=== PATIENT | female | born 1970 | race Caucasian/White ===

== ENCOUNTER 2017-08-28 07:15 | Inpatient (IN) | payer OTHER ==
[2017-08-28] MEDS ORDERED: SODIUM CHLORIDE 0.9% 1,000 ML IV STA (07:33)
[2017-08-28] MEDS ORDERED: KETOROLAC 30 MG/ML 1 ML VIAL IVP STA (07:33)
--- NOTE | 2017-08-28 07:37 | ED ---
Abdominal Pain HPI - General Chief Complaint: Abdominal Pain Stated Complaint: flank pain Time Seen by Provider: 08/28/17 07:21 Source: patient, RN notes reviewed Mode of arrival: ambulatory Limitations: no limitations - History of Present Illness Initial Comments: This is a 47-year-old female who states she had the onset of right-sided flank pain 2 days ago which is been fairly persistent sharp in nature currently as 9/ 10 severity some nausea no vomiting. Complaints of urinary pressure no hematuria or dysuria however. No diarrhea no constipation. Pain is worse with movements with deep breathing. When she sneezes it gets worse. No prior history kidney stones no prior history of abdominal surgeries. No fevers or chills but she does state she has less sweats. MD Complaint: abdominal pain, flank pain - Related Data Home Medications Medication Instructions Recorded Confirmed Lisinopril [Zestril] 10 mg PO DAILY 08/28/17 08/28/17 Allergies Allergy/AdvReac Type Severity Reaction Status Date / Time No Known Allergies Allergy Verified 08/28/17 08:04 Review of Systems ROS Statement: Those systems with pertinent positive or pertinent negative responses have been documented in the HPI. ROS Other: All systems not noted in ROS Statement are negative. Past Medical History Past Medical History: Hypertension Additional Past Medical History / Comment(s): pinched nerves in spine, pt started today on antibioitics by Dr Teixeira. History of Any Multi-Drug Resistant Organisms: None Reported Past Surgical History: Back Surgery, Tonsillectomy, Tubal Ligation Past Anesthesia/Blood Transfusion Reactions: Postoperative Nausea & Vomiting ( PONV) Past Psychological History: No Psychological Hx Reported Smoking Status: Never smoker Past Alcohol Use History: None Reported Past Drug Use History: None Reported - Past Family History Mother Family Medical History: No Reported History General Exam - General Exam Comments Initial Comments: This is a well-developed well-nourished awake alert oriented 3 female Limitations: no limitations General appearance: alert, anxious Head exam: Present: atraumatic, normocephalic, normal inspection Eye exam: Present: normal appearance, PERRL, EOMI. Absent: scleral icterus, conjunctival injection, periorbital swelling ENT exam: Present: mucous membranes dry Neck exam: Present: normal inspection. Absent: tenderness, meningismus, lymphadenopathy Respiratory exam: Present: normal lung sounds bilaterally. Absent: respiratory distress, wheezes, rales, rhonchi, stridor Cardiovascular Exam: Present: normal rhythm, tachycardia. Absent: systolic murmur, diastolic murmur, rubs, gallop, clicks GI/Abdominal exam: Present: soft, tenderness (Some right lower quadrant tenderness palpation no overt guarding or rebound and equivocal psoas sign), normal bowel sounds. Absent: distended, guarding, rebound, rigid Rectal exam: Present: deferred Extremities exam: Present: normal inspection, full ROM, normal capillary refill. Absent: tenderness, pedal edema, joint swelling, calf tenderness Back exam: Present: normal inspection, other (Some erythema and discolorationof the right flank she states she's been using a heating pad.). Absent: CVA tenderness (R), CVA tenderness (L) Neurological exam: Present: alert, oriented X3, CN II-XII intact Psychiatric exam: Present: normal affect, normal mood Skin exam: Present: warm, dry, intact, normal color. Absent: rash Course Vital Signs 08/28/17 07:17 Temperature 98.6 F Pulse Rate 117 H Respiratory 17 Rate Blood Pressure 145/75 O2 Sat by Pulse 100 Oximetry Medical Decision Making - Medical Decision Making I did discuss findings with the patient and Dr. Pena who is covering for Dr. Pearson. Patient will be admitted for presumed laparoscopic appendectomy - Lab Data Result diagrams: 08/28/17 07:47 08/28/17 07:47 Lab Results 08/28/17 08/28/17 08/28/17 Range/Units 07:47 07:47 07:47 WBC 17.6 H (3.8-10.6) k/uL RBC 5.00 (3.80-5.40) m/uL Hgb 14.4 (11.4-16.0) gm/dL Hct 46.3 H (34.0-46.0) % MCV 92.5 (80.0-100.0) fL MCH 28.8 (25.0-35.0) pg MCHC 31.1 (31.0-37.0) g/dL RDW 15.6 H (11.5-15.5) % Plt Count 372 (150-450) k/uL Neutrophils % 83 % Lymphocytes % 9 % Monocytes % 5 % Eosinophils % 1 % Basophils % 0 % Neutrophils # 14.6 H (1.3-7.7) k/uL Lymphocytes # 1.5 (1.0-4.8) k/uL Monocytes # 0.8 (0-1.0) k/uL Eosinophils # 0.2 (0-0.7) k/uL Basophils # 0.0 (0-0.2) k/uL Sodium 137 (137-145) mmol/L Potassium 5.0 (3.5-5.1) mmol/L Chloride 103 (98-107) mmol/L Carbon Dioxide 20 L (22-30) mmol/L Anion Gap 14 mmol/L BUN 10 (7-17) mg/dL Creatinine 0.72 (0.52-1.04) mg/dL Est GFR (MDRD) Af Amer >60 (>60 ml/min/1.73 sqM) Est GFR (MDRD) Non-Af >60 (>60 ml/min/1.73 sqM) Glucose 116 H (74-99) mg/dL Calcium 10.0 (8.4-10.2) mg/dL Total Bilirubin 0.7 (0.2-1.3) mg/dL AST 27 (14-36) U/L ALT 39 (9-52) U/L Alkaline Phosphatase 57 (38-126) U/L Total Protein 7.5 (6.3-8.2) g/dL Albumin 4.3 (3.5-5.0) g/dL Amylase 74 (30-110) U/L Lipase 69 (23-300) U/L Urine Color Yellow Urine Appearance Cloudy H (Clear) Urine pH 5.5 (5.0-8.0) Ur Specific [place] 1.017 (1.001-1.035) Urine Protein Trace H (Negative) Urine Glucose (UA) Negative (Negative) Urine Ketones 1+ H (Negative) Urine Blood Trace H (Negative) Urine Nitrite Negative (Negative) Urine Bilirubin Negative (Negative) Urine Urobilinogen <2.0 (<2.0) mg/dL Ur Leukocyte Esterase Large H (Negative) Urine RBC 3 (0-5) /hpf Urine WBC 45 H (0-5) /hpf Ur Squamous Epith Cells 6 H (0-4) /hpf Urine Bacteria Rare H (None) /hpf Urine Mucus Occasional H (None) /hpf - Radiology Data Radiology results: report reviewed (I did review the imaging and report acute appendicitis as per the radiologist and per review the CAT scan.), image reviewed Disposition Clinical Impression: Acute appendicitis Disposition: ADMITTED IP TO THIS HOSP Condition: Stable Referrals: Beti Teixeira MD [Primary Care Provider] - 1-2 days
[2017-08-28 08:01] LABS: Basophils % (A) 0 %; Eosinophils # (A) 0.2 k/uL (0-0.7); Eosinophils % (A) 1 %; HCT 46.3 % (34.0-46.0); HGB 14.4 gm/dL (11.4-16.0); Lymphocytes # (A) 1.5 k/uL (1.0-4.8); Lymphocytes % (A) 9 %; MCH 28.8 pg (25.0-35.0); MCHC 31.1 g/dL (31.0-37.0); MCV 92.5 fL (80.0-100.0); Monocytes # (A) 0.8 k/uL (0-1.0); Monocytes % (A) 5 %; Neutrophils # (A) 14.6 k/uL (1.3-7.7); Neutrophils % (A) 83 %; Platelet Count 372 k/uL (150-450); RDW 15.6 % (11.5-15.5); WBC 17.6 k/uL (3.8-10.6)
[2017-08-28 08:05] LABS: Appearance,Urine Cloudy (Clear); Bacteria,Urine Rare /hpf; Bilirubin,Urine Negative (Negative); Blood,Urine Trace (Negative); Color,Urine Yellow; Glucose,Urine (UA) Negative (Negative); Ketones,Urine 1+ (Negative); Leukocyte Esterase,Urine Large (Negative); Mucus,Urine Occasional /hpf; Nitrite,Urine Negative (Negative); PH, Urine 5.5 (5.0-8.0); Protein,Urine Trace (Negative); RBC,Urine 3 /hpf (0-5); Specific Gravity,Urine 1.017 (1.001-1.035); Squamous Epithelial Cell,Urine 6 /hpf (0-4); Urobilinogen,Urine <2.0 mg/dL (<2.0); WBC,Urine 45 /hpf (0-5)
[2017-08-28 08:11] LABS: ALT 39 U/L (9-52); AST 27 U/L (14-36); Albumin 4.3 g/dL (3.5-5.0); Alkaline Phosphatase 57 U/L (38-126); Amylase 74 U/L (30-110); Anion Gap 14 mmol/L; Blood Urea Nitrogen 10 mg/dL (7-17); Carbon Dioxide 20 mmol/L (22-30); Chloride 103 mmol/L (98-107); Glucose 116 mg/dL (74-99); Lipase 69 U/L (23-300); Sodium 137 mmol/L (137-145); Total Bilirubin 0.7 mg/dL (0.2-1.3); Total Protein 7.5 g/dL (6.3-8.2)
--- NOTE | 2017-08-28 08:26 | CT ---
EXAMINATION TYPE: CT abdomen pelvis wo con DATE OF EXAM: 08/28/2017 HISTORY: Rt flank pain CT DLP: 1037 mGycm. Automated Exposure Control for Dose Reduction was Utilized. TECHNIQUE: CT scan of the abdomen and pelvis is performed without oral or IV contrast. COMPARISON: MRI lumbar spine September 05, 2009. FINDINGS: Within the limitations of a non-contrast study, the following observations are made. LUNG BASES: There is patchy left basilar linear scarring and/or atelectasis in the left lung base tyrel trally. LIVER/GB: Liver is isodense to slightly hypodense relative to spleen consistent with mild diffuse fat ty infiltration. PANCREAS: No significant abnormality is seen. SPLEEN: No significant abnormality is seen. ADRENALS: No significant abnormality is seen. KIDNEYS: In right kidney lower pole level there is 5.0 cm low dense lesion, Hounsfield units average less than 10, simple cyst is felt present. Finding correlates with lumbar spine MRI 2009 though simpl e cyst is noted increased in size from the study. There are no renal calculi or hydronephrosis seen b ilaterally. No intraluminal calculi in poorly distended bladder are identified. BOWEL: From base of cecum appendix is abnormal. There is dilatation and wall thickening most prominen t mid aspect up to 16 mm on axial image 113. Central hyperdensity may reflect appendicolith. There is moderate ill-defined surrounding fluid and fat stranding. Findings are consistent with acute appendi citis. No well-formed fluid collection or abscess is seen. No free air is noted. There is no suspicious small or large bowel dilatation. There is small hiatal hernia is seen. There a re few diverticula in the sigmoid colon without CT evidence for acute diverticulitis. GENITAL ORGANS: Anteverted uterus is present. Subserosal punctate calcification axial image 134 noted right aspect. Trace free fluid in pelvic cul-de-sac is felt present seen best near coronal image 74. There is suspected oval partially fatty lesion right ovary correlate for small dermoid measuring 1.2 x 0.7 cm axial image 120. Lymph nodes: No greater than 1cm abdominal or pelvic lymph nodes are appreciated. OSSEOUS STRUCTURES: There is postsurgical change lower lumbar spine with posterior interpedicular clau s and screws transfixing L4-L5 level and metallic disc spacer L4-L5 level noted. There is moderate mu ltilevel spurring in visualized thoracic spine. OTHER: There is a small to moderate-sized fat-containing umbilical hernia. IMPRESSION: 1. No renal stones or hydronephrosis is seen bilaterally. 2. CT findings are consistent with acute appendicitis as detailed above. 3. I suspect small right ovarian dermoid, consider nonemergent follow-up imaging with ultrasound and/ or MRI to confirm. Critical results communicated to ordering ER physician via telephone at time of dictation. A Document Only message has been documented for Adolfo Steward MD in the [employer] Critical [facility] sult system on 08/28/2017 8:22 AM, Message ID [id number].
[2017-08-28] MEDS ORDERED: NALOXONE 0.4 MG/ML 1 ML VIAL IV PRN ×2 (08:30→12:39)
[2017-08-28] MEDS ORDERED: SODIUM CHLORIDE 0.9% 1,000 ML IV SCH (08:30)
[2017-08-28] MEDS ORDERED: PIPERACILLIN-TAZOBACTAM 3.375 GM in DEXTROSE/WATER 1 50ML.BAG IVPB STA (08:34)
--- NOTE | 2017-08-28 09:13 | P.GSHP ---
History of Present Illness H&P Date: 08/28/17 47-year-old female presents to the emergency department complaining of right lower quadrant pain. She states that the pain started approximately 2 days ago and has worsened. She states that the first day of the pain she did have some nausea but denied any emesis. She denies any change in appetite. She denies any change in bowel function. She states that she has been in and out of the cold, because she works with horses in a stable and is unsure if she has been having fevers. She has no additional complaints at this time. She denies being on any anticoagulation medication. She denies any previous abdominal surgery. - Review of Systems All systems: negative Past Medical History Past Medical History: Hypertension Additional Past Medical History / Comment(s): pinched nerves in spine, pt started today on antibioitics by Dr Teixeira. History of Any Multi-Drug Resistant Organisms: None Reported Past Surgical History: Back Surgery, Tonsillectomy, Tubal Ligation Additional Past Surgical History / Comment(s): 2016 lumbar fusion Past Anesthesia/Blood Transfusion Reactions: Postoperative Nausea & Vomiting ( PONV) Past Psychological History: No Psychological Hx Reported Additional Psychological History / Comment(s): Pt resides with family. She is independent. Smoking Status: Never smoker Past Alcohol Use History: None Reported Past Drug Use History: None Reported - Past Family History Mother Family Medical History: No Reported History Additional Family Medical History / Comment(s): Mother is healthy and is in her 70's Father Family Medical History: No Reported History Additional Family Medical History / Comment(s): Father is healthy. He is in his 70s Medications and Allergies Home Medications Medication Instructions Recorded Confirmed Type Lisinopril [Zestril] 10 mg PO DAILY 08/28/17 08/28/17 History Norethindrone-E.estradiol-Iron 1 tab PO DAILY 08/28/17 08/28/17 History [Microgestin Fe 1.5-30 Tab] Allergies Allergy/AdvReac Type Severity Reaction Status Date / Time No Known Allergies Allergy Verified 08/28/17 08:04 Surgical - Exam Osteopathic Statement: *. No significant issues noted on an osteopathic structural exam other than those noted in the History and Physical/Consult. Vital Signs Temp Pulse Resp BP Pulse Ox 98.6 F 117 H 17 145/75 100 08/28/17 07:17 08/28/17 07:17 08/28/17 07:17 08/28/17 07:17 08/28/17 07:17 - General well developed, well nourished, no distress - Eyes PERRL, normal ocular movement - ENT normal pinna, normal nares, normal mucosa - Neck no masses, no bruits, trachea midline - Respiratory normal respiratory effort - Abdomen Soft, tender in right lower quadrant, nondistended, no rebound, no guarding - Psychiatric oriented to time, oriented to person, oriented to place Results - Labs 08/28/17 07:47 08/28/17 07:47 Abnormal Lab Results - Last 24 Hours (Table) 08/28/17 08/28/17 08/28/17 Range/Units 07:47 07:47 07:47 WBC 17.6 H (3.8-10.6) k/uL Hct 46.3 H (34.0-46.0) % RDW 15.6 H (11.5-15.5) % Neutrophils # 14.6 H (1.3-7.7) k/uL Carbon Dioxide 20 L (22-30) mmol/L Glucose 116 H (74-99) mg/dL Urine Appearance Cloudy H (Clear) Urine Protein Trace H (Negative) Urine Ketones 1+ H (Negative) Urine Blood Trace H (Negative) Ur Leukocyte Esterase Large H (Negative) Urine WBC 45 H (0-5) /hpf Ur Squamous Epith Cells 6 H (0-4) /hpf Urine Bacteria Rare H (None) /hpf Urine Mucus Occasional H (None) /hpf Diabetes panel 08/28/17 Range/Units 07:47 Sodium 137 (137-145) mmol/L Potassium 5.0 (3.5-5.1) mmol/L Chloride 103 (98-107) mmol/L Carbon Dioxide 20 L (22-30) mmol/L BUN 10 (7-17) mg/dL Creatinine 0.72 (0.52-1.04) mg/dL Glucose 116 H (74-99) mg/dL Calcium 10.0 (8.4-10.2) mg/dL AST 27 (14-36) U/L ALT 39 (9-52) U/L Alkaline Phosphatase 57 (38-126) U/L Total Protein 7.5 (6.3-8.2) g/dL Albumin 4.3 (3.5-5.0) g/dL Calcium panel 08/28/17 Range/Units 07:47 Calcium 10.0 (8.4-10.2) mg/dL Albumin 4.3 (3.5-5.0) g/dL Pituitary panel 08/28/17 Range/Units 07:47 Sodium 137 (137-145) mmol/L Potassium 5.0 (3.5-5.1) mmol/L Chloride 103 (98-107) mmol/L Carbon Dioxide 20 L (22-30) mmol/L BUN 10 (7-17) mg/dL Creatinine 0.72 (0.52-1.04) mg/dL Glucose 116 H (74-99) mg/dL Calcium 10.0 (8.4-10.2) mg/dL Adrenal panel 08/28/17 Range/Units 07:47 Sodium 137 (137-145) mmol/L Potassium 5.0 (3.5-5.1) mmol/L Chloride 103 (98-107) mmol/L Carbon Dioxide 20 L (22-30) mmol/L BUN 10 (7-17) mg/dL Creatinine 0.72 (0.52-1.04) mg/dL Glucose 116 H (74-99) mg/dL Calcium 10.0 (8.4-10.2) mg/dL Total Bilirubin 0.7 (0.2-1.3) mg/dL AST 27 (14-36) U/L ALT 39 (9-52) U/L Alkaline Phosphatase 57 (38-126) U/L Total Protein 7.5 (6.3-8.2) g/dL Albumin 4.3 (3.5-5.0) g/dL - Imaging CT scan - abdomen: report reviewed, image reviewed CT scan - pelvis: report reviewed, image reviewed (Reviewed CT of the abdomen and pelvis. There is thickening of the appendix. There is also noted ovarian dermoid.) Assessment and Plan (1) Acute appendicitis Current Visit: Yes Status: Acute Priority: High Code(s): K35.80 - UNSPECIFIED ACUTE APPENDICITIS SNOMED Code(s): 46232177 Plan: 47-year-old female with acute appendicitis - Keep nothing by mouth - Begin antibiotics - Will board for operating room for laparoscopic appendectomy - DVT prophylaxis - Further recommendations after operation
[2017-08-28] MEDS: IV FLUID CONTINUATION 1,000 ML IV ONE ×2 (09:49→14:24)
[2017-08-28] MEDS ORDERED: ONDANSETRON 4 MG/2 ML VIAL IVP ONE (10:08)
[2017-08-28] MEDS ORDERED: DEXAMETHASONE SOD PHOSPHATE 10 MG/ML 1 ML VIAL IV ONE (10:09)
[2017-08-28] MEDS ORDERED: HEPARIN SODIUM,PORCINE 5,000 UNIT/ML 1 ML VIAL SQ ONE (10:09)
[2017-08-28] MEDS ORDERED: GLYCOPYRROLATE 0.2 MG/ML 2 ML VIAL ONE (10:16)
[2017-08-28] MEDS ORDERED: NEOSTIGMINE 1 MG/ML 10 ML VIAL ONE (10:16)
[2017-08-28] MEDS ORDERED: PHENYLEPHRINE-0.9% NACL SYG 1 MG/10 ML SYRINGE ONE (10:16)
[2017-08-28] MEDS ORDERED: fentaNYL (PF) 50 MCG/ML 2 ML AMP ONE (10:16)
[2017-08-28] MEDS ORDERED: SODIUM CHLORIDE 0.9% 1,000 ML IV ONE (10:16)
[2017-08-28] MEDS ORDERED: BUPIVACAINE-EPI 0.5%-1:200,000 10 ML VIAL SQ ONE (10:16)
[2017-08-28] MEDS ORDERED: ROCURONIUM BROMIDE 10 MG/ML 10 ML VIAL IV ONE (10:16)
[2017-08-28] MEDS ORDERED: LIDOCAINE 1% INJ 10MG/ML (20 ML MDV) ONE (10:16)
[2017-08-28] MEDS ORDERED: SUCCINYLCHOLINE CHLORIDE 100 MG/5 ML SYR IV ONE (10:16)
[2017-08-28] MEDS ORDERED: PROPOFOL 10 MG/ML 20 ML VIAL IV ONE (10:16)
[2017-08-28] MEDS ORDERED: MIDAZOLAM 2 MG/2 ML VIAL ONE (10:16)
[2017-08-28] MEDS ORDERED: LACTATED RINGERS 1,000 ML IV ONE ×2 (11:04→12:39)
--- NOTE | 2017-08-28 11:36 | P.OP ---
Date of Procedure: 08/28/17 Preoperative Diagnosis: Acute appendicitis Postoperative Diagnosis: Acute appendicitis, purulent Procedure(s) Performed: Laparoscopic appendectomy Anesthesia: SHERMAN Surgeon: Torito Pena Estimated Blood Loss (ml): 5 Pathology: other (Appendix) Condition: stable Disposition: floor Indications for Procedure: 47-year-old female presents secondary to right lower quadrant abdominal pain. She has had this pain for 2 days. On workup in the emergency department acute appendicitis was found on a CT of her abdomen and pelvis. Secondary to this, a laparoscopic appendectomy was offered to the patient. The patient was explained the risks, benefits and alternatives to the procedure. She did provide consent prior to attending the operating suite. Operative Findings: Purulent appendicitis with exudative changes Description of Procedure: The patient was brought into the operating suite and placed in supine position on the operating table. Sedation was provided by anesthesia and the patient underwent endotracheal intubation. The patient was then prepped and draped in regular sterile fashion and a Fontanez catheter was placed. A supraumbilical incision was made and the abdomen was entered under direct visualization using a Visiport. Pneumoperitoneum was then achieved. 2 additional 5 mm ports were then placed. One was placed at the suprapubic area and the second was placed in the left lower quadrant. The patient was then positioned appropriately. The appendix was noted to be posterior. The cecum was followed to the appendix base. At this point it was noted that the appendix was purulent with exudative changes. There was also a purulent pocket of turbid fluid around the appendix. The appendix was followed until the tip was located. The entire appendix was clearly visualized. A window was created at the base of the appendix between the mesoappendix and the appendix using a [place] dissector. A Endo JULIÁN 60 mm purple load was then fired across the base of the appendix. A LigaSure device was then used to dissect the appendix from the mesoappendix all while maintaining hemostasis. All once the appendix was completely free from its surrounding attachments it was placed in an Endo Catch bag and removed from the abdomen from the super umbilical incision. Irrigation was then used in the right lower quadrant. Hemostasis was noted to be maintained. At this point, the super umbilical incision site fascia was closed using a Ivan-Sunil device and an 0 Vicryl suture in [id number] fashion. Pneumoperitoneum was then released and all additional ports removed. All skin incisions were then closed using 4-0 Vicryl subcuticular suture. Sterile dressing was applied. The patient was awakened in the operating suite and taken to postanesthesia care unit in stable condition.
[2017-08-28] MEDS ORDERED: ONDANSETRON 4 MG/2 ML VIAL IVP PRN (12:39)
[2017-08-28] MEDS ORDERED: HYDROcodone/APAP 5-325MG 1 EACH TAB PO PRN (12:39)
[2017-08-28] MEDS ORDERED: HYDROmorphone 0.5 MG/0.5 ML SYRINGE IVP PRN (12:39)
[2017-08-28 14:46] VITALS: RESP 16
[2017-08-28] MEDS: HEPARIN SODIUM,PORCINE 5,000 UNIT/ML 1 ML VIAL SQ SCH ×2 (17:47→23:23)
[2017-08-28] MEDS: PIPERACILLIN-TAZOBACTAM 3.375 GM in DEXTROSE/WATER 1 50ML.BAG IVPB SCH ×2 (17:47→23:21)
[2017-08-28] MEDS ORDERED: HYDROmorphone 1 MG/ML 1 ML SYRINGE IVP PRN (22:25)
[2017-08-28] MEDS ORDERED: HYDROmorphone 2 MG/ML 1 ML SYRINGE IVP PRN (22:55)
[2017-08-29 07:27] VITALS: BP 127/84; PULSE 78; TEMP 97.9
[2017-08-29 08:16] LABS: Basophils % (A) 0 %; Eosinophils % (A) 0 %; HCT 38.6 % (34.0-46.0); HGB 12.3 gm/dL (11.4-16.0); Lymphocytes # (A) 1.3 k/uL (1.0-4.8); Lymphocytes % (A) 9 %; MCH 29.2 pg (25.0-35.0); MCHC 31.9 g/dL (31.0-37.0); MCV 91.5 fL (80.0-100.0); Mean Platelet Volume 6.9; Monocytes # (A) 0.7 k/uL (0-1.0); Monocytes % (A) 4 %; Neutrophils # (A) 12.7 k/uL (1.3-7.7); Neutrophils % (A) 85 %; Platelet Count 370 k/uL (150-450); RBC 4.21 m/uL (3.80-5.40); RDW 14.2 % (11.5-15.5); WBC 14.9 k/uL (3.8-10.6)
[2017-08-29 08:35] LABS: Anion Gap 11 mmol/L; Blood Urea Nitrogen 9 mg/dL (7-17); Calcium 9.2 mg/dL (8.4-10.2); Carbon Dioxide 24 mmol/L (22-30); Chloride 103 mmol/L (98-107); Glucose 135 mg/dL (74-99); Potassium 5.1 mmol/L (3.5-5.1); Sodium 138 mmol/L (137-145)
[2017-08-29] MEDS: HEPARIN SODIUM,PORCINE 5,000 UNIT/ML 1 ML VIAL SQ SCH (08:37)
[2017-08-29] MEDS ORDERED: PANTOPRAZOLE 40 MG/10 ML VIAL IV SCH (09:00)
--- NOTE | 2017-08-29 09:01 | P.DS ---
Providers Date of admission: 08/29/17 07:54 Attending physician: Torito Pena DO Primary care physician: Beti Teixeira - Discharge Diagnosis(es) (1) Acute appendicitis Current Visit: Yes Status: Acute Priority: High Hospital Course: The patient initially presented secondary to pain in the right lower quadrant of her abdomen. On workup the patient was found to have acute appendicitis. The patient was taken to the operating room and was admitted for observation postoperatively. She has been tolerating her diet and has had tolerable pain. She is ambulating and urinating. She is stable from a surgical standpoint for discharge. She will be discharged with pain medication and antibiotics. Procedures: Laparoscopic appendectomy Patient Condition at Discharge: Stable Plan - Discharge Summary Discharge Rx Participant: No New Discharge Prescriptions: New Acetaminophen-Codeine 300-30mg [Tylenol #3] 1 tab PO Q6H PRN #10 tablet PRN Reason: Pain Ciprofloxacin HCl [Cipro] 500 mg PO Q12HR #14 tablet metroNIDAZOLE [Flagyl] 500 mg PO Q8HR #21 tab Continue Lisinopril [Zestril] 10 mg PO DAILY Norethindrone-E.estradiol-Iron [Microgestin Fe 1.5-30 Tab] 1 tab PO DAILY Discharge Medication List Lisinopril [Zestril] 10 mg PO DAILY 08/28/17 [History] Norethindrone-E.estradiol-Iron [Microgestin Fe 1.5-30 Tab] 1 tab PO DAILY [History] Acetaminophen-Codeine 300-30mg [Tylenol #3] 1 tab PO Q6H PRN #10 tablet [Rx] Ciprofloxacin HCl [Cipro] 500 mg PO Q12HR #14 tablet 08/29/17 [Rx] metroNIDAZOLE [Flagyl] 500 mg PO Q8HR #21 tab 08/29/17 [Rx] Follow up Appointment(s)/Referral(s): Beti Teixeira MD [Primary Care Provider] - 1-2 days Torito Pena DO [Doctor of Osteopathic Medicine] - 10 Days Patient Instructions/Handouts: Laparoscopic Appendectomy (DC) Activity/Diet/Wound Care/Special Instructions: Continue to increase activity daily No lifting greater than 7 pounds Okay to advance from soft diet to a regular diet Okay to shower, do not scrub on incisions Use gauze over incisions if necessary Discharge Disposition: HOME SELF-CARE
[2017-08-29] MEDS: PIPERACILLIN-TAZOBACTAM 3.375 GM in DEXTROSE/WATER 1 50ML.BAG IVPB SCH (10:00)
== END 2017-08-29 13:39 | disposition home or self-care (01) | DRG 343 ==
LOC: EC 07:15 → 3SUR 08:32 → OBSVTOIN 08-29 07:54
PROVIDERS: ADMIT Surgery; ATTEND Surgery
PROC: 0DTJ4ZZ Resection of Appendix, Percutaneous Endoscopic Approach (ICD-10-PCS; principal; 2017-08-29)
DX: K35.80 Unspecified acute appendicitis (principal); I10 Essential (primary) hypertension; Z79.899 Other long term (current) drug therapy; Z98.1 Arthrodesis status; Z98.51 Tubal ligation status; Z90.89 Acquired absence of other organs
CPT/HCPCS: 36415; 74176; 80048; 80053; 81001; 81025; 82150; 83690; 85025; 87040; 88304; 96361; 96374; 99285

== ENCOUNTER 2017-09-23 00:29 | Emergency (ER) | payer OTHER ==
[2017-09-23 01:14] LABS: Basophils # (A) 0.1 k/uL (0-0.2); Basophils % (A) 0 %; Eosinophils # (A) 0.2 k/uL (0-0.7); Eosinophils % (A) 1 %; HCT 46.9 % (34.0-46.0); Lymphocytes % (A) 14 %; MCH 29.7 pg (25.0-35.0); MCHC 32.7 g/dL (31.0-37.0); MCV 90.9 fL (80.0-100.0); Mean Platelet Volume 6.5; Monocytes # (A) 0.6 k/uL (0-1.0); Monocytes % (A) 4 %; Neutrophils # (A) 10.9 k/uL (1.3-7.7); Neutrophils % (A) 79 %; Platelet Count 384 k/uL (150-450); RBC 5.16 m/uL (3.80-5.40); RDW 14.3 % (11.5-15.5); WBC 13.9 k/uL (3.8-10.6)
--- NOTE | 2017-09-23 01:22 | ED ---
Abdominal Pain HPI - General Chief Complaint: Chest Pain Stated Complaint: abdominal pain/left arm numbness Time Seen by Provider: 09/23/17 00:50 Source: patient Mode of arrival: wheelchair Limitations: no limitations - History of Present Illness Initial Comments: This patient is a 47-year-old woman, has had a little over 4 hours of abdominal pain. The patient states that it started around 9 while she was just watching television. Pains in the bilateral lower quadrants, intermittent and crampy. She states that it would last about 45 seconds and then resolve with about 5 minutes or so between episodes. She states that then the pain began radiating up toward her epigastric area. She also has had a number of episodes of dry heaves and then small amount of vomiting. She remains mildly nauseated. After the pain had been present for a little while she noted that she was having some left arm aching. MD Complaint: abdominal pain -: hour(s) Location: LLQ, RLQ Radiation: none Migration to: no migration, epigastric Severity: moderate Severity scale (1-10): 7 Quality: cramping Consistency: intermittent Improves With: nothing Worsens With: nothing Associated Symptoms: nausea, vomiting - Related Data Home Medications Medication Instructions Recorded Confirmed Lisinopril [Zestril] 10 mg PO DAILY 08/28/17 08/28/17 Norethindrone-E.estradiol-Iron 1 tab PO DAILY 08/28/17 08/28/17 [Microgestin Fe 1.5-30 Tab] Previous Rx's Medication Instructions Recorded Acetaminophen-Codeine 300-30mg 1 tab PO Q6H PRN #10 tablet 08/29/17 [Tylenol #3] Ciprofloxacin HCl [Cipro] 500 mg PO Q12HR #14 tablet 08/29/17 metroNIDAZOLE [Flagyl] 500 mg PO Q8HR #21 tab 08/29/17 Azithromycin [Zithromax Z-pack] 250 mg PO DIRECTED #6 tab 09/23/17 Levofloxacin [Levaquin] 750 mg PO DAILY #7 tab 09/23/17 Allergies Allergy/AdvReac Type Severity Reaction Status Date / Time No Known Allergies Allergy Verified 09/23/17 00:36 Review of Systems ROS Statement: Those systems with pertinent positive or pertinent negative responses have been documented in the HPI. ROS Other: All systems not noted in ROS Statement are negative. Constitutional: Denies: fever, chills, weakness Respiratory: Denies: cough, dyspnea Cardiovascular: Denies: chest pain, palpitations, dyspnea on exertion, orthopnea , edema Gastrointestinal: Reports: as per HPI, abdominal pain, nausea, vomiting. Denies : diarrhea, constipation, melena, hematochezia Genitourinary: Denies: urgency, dysuria Musculoskeletal: Denies: back pain Skin: Denies: rash Neurological: Denies: headache Past Medical History Past Medical History: Hypertension Additional Past Medical History / Comment(s): pinched nerves in spine. History of Any Multi-Drug Resistant Organisms: None Reported Past Surgical History: Appendectomy, Back Surgery, Tonsillectomy, Tubal Ligation Additional Past Surgical History / Comment(s): 2016 lumbar fusion Past Anesthesia/Blood Transfusion Reactions: Postoperative Nausea & Vomiting ( PONV) Past Psychological History: No Psychological Hx Reported Smoking Status: Never smoker Past Alcohol Use History: None Reported Past Drug Use History: None Reported - Past Family History Mother Family Medical History: No Reported History Additional Family Medical History / Comment(s): Mother is healthy and is in her 70's Father Family Medical History: No Reported History Additional Family Medical History / Comment(s): Father is healthy. He is in his 70s General Exam Limitations: no limitations General appearance: alert, in no apparent distress, obese Head exam: Present: atraumatic, normocephalic Eye exam: Present: normal appearance. Absent: scleral icterus, conjunctival injection ENT exam: Present: normal oropharynx Neck exam: Present: normal inspection Respiratory exam: Present: normal lung sounds bilaterally. Absent: respiratory distress, wheezes, rales, rhonchi, stridor Cardiovascular Exam: Present: regular rate, normal rhythm, normal heart sounds. Absent: systolic murmur, diastolic murmur, rubs, gallop GI/Abdominal exam: Present: soft, tenderness, diminished bowel sounds. Absent: distended, guarding, rebound, rigid, mass, pulsatile mass Extremities exam: Present: normal inspection, normal capillary refill. Absent: pedal edema, calf tenderness Back exam: Present: normal inspection. Absent: CVA tenderness (R), CVA tenderness (L) Neurological exam: Present: alert Skin exam: Present: warm, dry, intact, normal color. Absent: rash Course Vital Signs 09/23/17 09/23/1709/23/18 00:32 00:56 00:57 Temperature 97.8 F Pulse Rate 91 98 Pulse Rate [ 98 Sample Prep Technician ] Respiratory 16 20 Rate Blood Pressure 138/68 136/73 O2 Sat by Pulse 100 98 Oximetry Medical Decision Making - Lab Data Result diagrams: 09/23/17 01:00 09/23/17 01:00 Lab Results 09/23/17 09/23/17 09/23/17 Range/Units 01:00 01:00 01:00 WBC 13.9 H (3.8-10.6) k/uL RBC 5.16 (3.80-5.40) m/uL Hgb 15.3 D (11.4-16.0) gm/dL Hct 46.9 H (34.0-46.0) % MCV 90.9 (80.0-100.0) fL MCH 29.7 (25.0-35.0) pg MCHC 32.7 (31.0-37.0) g/dL RDW 14.3 (11.5-15.5) % Plt Count 384 (150-450) k/uL Neutrophils % 79 % Lymphocytes % 14 % Monocytes % 4 % Eosinophils % 1 % Basophils % 0 % Neutrophils # 10.9 H (1.3-7.7) k/uL Lymphocytes # 2.0 (1.0-4.8) k/uL Monocytes # 0.6 (0-1.0) k/uL Eosinophils # 0.2 (0-0.7) k/uL Basophils # 0.1 (0-0.2) k/uL PT (9.0-12.0) sec INR (<1.2) APTT (22.0-30.0) sec D-Dimer (<0.60) mg/L FEU Sodium 137 (137-145) mmol/L Potassium 4.5 (3.5-5.1) mmol/L Chloride 104 (98-107) mmol/L Carbon Dioxide 21 L (22-30) mmol/L Anion Gap 12 mmol/L BUN 16 (7-17) mg/dL Creatinine 0.80 (0.52-1.04) mg/dL Est GFR (MDRD) Af Amer >60 (>60 ml/min/1.73 sqM) Est GFR (MDRD) Non-Af >60 (>60 ml/min/1.73 sqM) Glucose 159 H (74-99) mg/dL Calcium 9.7 (8.4-10.2) mg/dL Magnesium 1.8 (1.6-2.3) mg/dL Total Bilirubin 0.5 (0.2-1.3) mg/dL AST 57 H (14-36) U/L ALT 57 H (9-52) U/L Alkaline Phosphatase 39 (38-126) U/L Total Creatine Kinase 53 (30-135) U/L CK-MB (CK-2) 0.8 (0.0-2.4) ng/mL CK-MB (CK-2) Rel Index 1.5 Troponin I <0.012 (0.000-0.034) ng/mL Total Protein 6.7 (6.3-8.2) g/dL Albumin 3.9 (3.5-5.0) g/dL Amylase (30-110) U/L Lipase (23-300) U/L 09/23/17 09/23/17 Range/Units 01:00 01:00 WBC (3.8-10.6) k/uL RBC (3.80-5.40) m/uL Hgb (11.4-16.0) gm/dL Hct (34.0-46.0) % MCV (80.0-100.0) fL MCH (25.0-35.0) pg MCHC (31.0-37.0) g/dL RDW (11.5-15.5) % Plt Count (150-450) k/uL Neutrophils % % Lymphocytes % % Monocytes % % Eosinophils % % Basophils % % Neutrophils # (1.3-7.7) k/uL Lymphocytes # (1.0-4.8) k/uL Monocytes # (0-1.0) k/uL Eosinophils # (0-0.7) k/uL Basophils # (0-0.2) k/uL PT 9.9 (9.0-12.0) sec INR 1.0 (<1.2) APTT 20.2 L (22.0-30.0) sec D-Dimer 10.60 H (<0.60) mg/L FEU Sodium (137-145) mmol/L Potassium (3.5-5.1) mmol/L Chloride (98-107) mmol/L Carbon Dioxide (22-30) mmol/L Anion Gap mmol/L BUN (7-17) mg/dL Creatinine (0.52-1.04) mg/dL Est GFR (MDRD) Af Amer (>60 ml/min/1.73 sqM) Est GFR (MDRD) Non-Af (>60 ml/min/1.73 sqM) Glucose (74-99) mg/dL Calcium (8.4-10.2) mg/dL Magnesium (1.6-2.3) mg/dL Total Bilirubin (0.2-1.3) mg/dL AST (14-36) U/L ALT (9-52) U/L Alkaline Phosphatase (38-126) U/L Total Creatine Kinase (30-135) U/L CK-MB (CK-2) (0.0-2.4) ng/mL CK-MB (CK-2) Rel Index Troponin I (0.000-0.034) ng/mL Total Protein (6.3-8.2) g/dL Albumin (3.5-5.0) g/dL Amylase 58 (30-110) U/L Lipase 118 (23-300) U/L - EKG Data -: EKG Interpreted by [facility] EKG shows normal: sinus rhythm, axis (Normal), intervals (CO and QTc normal, QRS is 120 ms, prolonged.), QRS complexes (There is a right bundle-branch block and a left anterior fascicular block, for a bifascicular block.) Rate: normal (Rate 95 bpm) Interpretation: LVH (Possible LVH) Disposition Clinical Impression: Hilar adenopathy Disposition: HOME SELF-CARE Condition: Fair Instructions: Chest Pain (ED) Prescriptions: Azithromycin [Zithromax Z-pack] 250 mg PO DIRECTED #6 tab Levofloxacin [Levaquin] 750 mg PO DAILY #7 tab Referrals: Beti Teixeira MD [Primary Care Provider] - 1-2 days
--- NOTE | 2017-09-23 01:23 | XR ---
EXAMINATION TYPE: XR chest 1V portable DATE OF EXAM: 09/23/2017 COMPARISON: 06/19/2016 HISTORY: Epigastric pain TECHNIQUE: Single frontal view of the chest is obtained. FINDINGS: There is probably a small infiltrate at the left lung base. There is no heart failure. Cos tophrenic angles are clear. There are chest leads. IMPRESSION: There is probably a new minimal infiltrate at the left lung base compared to old exam.
[2017-09-23 01:26] LABS: Amylase 58 U/L (30-110); Lipase 118 U/L (23-300)
[2017-09-23 01:27] LABS: ALT 57 U/L (9-52); AST 57 U/L (14-36); Albumin 3.9 g/dL (3.5-5.0); Alkaline Phosphatase 39 U/L (38-126); Anion Gap 12 mmol/L; Blood Urea Nitrogen 16 mg/dL (7-17); Calcium 9.7 mg/dL (8.4-10.2); Carbon Dioxide 21 mmol/L (22-30); Chloride 104 mmol/L (98-107); Glucose 159 mg/dL (74-99); Magnesium 1.8 mg/dL (1.6-2.3); Potassium 4.5 mmol/L (3.5-5.1); Sodium 137 mmol/L (137-145); Total Bilirubin 0.5 mg/dL (0.2-1.3); Total Protein 6.7 g/dL (6.3-8.2)
[2017-09-23 01:32] LABS: HGB 15.3 gm/dL (11.4-16.0)
[2017-09-23 01:34] LABS: Creatine Kinase 53 U/L (30-135)
[2017-09-23 01:40] LABS: Prothrombin Time 9.9 sec (9.0-12.0)
--- NOTE | 2017-09-23 01:45 | CT ---
EXAMINATION TYPE: CT abdomen pelvis wo con DATE OF EXAM: 09/23/2017 COMPARISON: 08/28/2017 HISTORY: Prior on synapse, pt s/p appendectomy 3 weeks ago, epigastric pain and nausea, renal stone p rotocol CT DLP: 1280.30 mGycm Automated exposure control for dose reduction was used. TECHNIQUE: Helical acquisition of images was performed from the lung bases through the pelvis. FINDINGS: Lung bases are clear of consolidation. There is no pleural effusion. Heart size is normal. Liver spleen pancreas gallbladder appear normal. Bile ducts are not dilated. There is no adrenal mass . Kidneys have normal size. There is a 5 cm cortical cyst on the lateral right kidney. There is no hy dronephrosis. There is free fluid in the pelvis. Urinary bladder appears normal. Uterus is anteverted. There appear s to be some small bowel mild wall thickening with mesenteric stranding in the mid abdomen. There is no sign of free air. There are clips apparently from appendectomy. There is posterior lumbar spine fu juan surgery. I see no focal bone destruction. IMPRESSION: THERE IS FREE FLUID IN THE ABDOMEN. THERE IS SOME SMALL BOWEL MESENTERIC STRANDING AND SMALL BOWEL WA LL THICKENING THAT IS NONSPECIFIC AND COULD RELATE TO ENTERITIS. NO FREE AIR. RIGHT RENAL CORTICAL CY ST. SMALL BOWEL AND MESENTERIC ABNORMALITIES ARE NEW COMPARED TO THE OLD CT SCAN. FREE FLUID IS NEW.
[2017-09-23 01:47] LABS: Creatine Kinase MB 0.8 ng/mL (0.0-2.4); Troponin I <0.012 ng/mL (0.000-0.034)
[2017-09-23 01:52] LABS: D-Dimer 10.6 mg/L FEU (<0.60); Partial Thromboplastin Time 20.2 sec (22.0-30.0)
[2017-09-23] MEDS ORDERED: RX INFO: IV CONTRAST WAS GIVEN 1 EACH MISC MISCELLANE PRN (02:30)
--- NOTE | 2017-09-23 03:30 | CT ---
EXAM: CT Angiography Chest With Intravenous Contrast CT Angiography Abdomen and Pelvis With Intravenous Contrast CLINICAL HISTORY: Reason: Pain TECHNIQUE: Axial computed tomographic angiography images of the chest, abdomen and pelvis with intravenous contrast using CT angiography protocol. CTDI is 14 mGy and DLP is 1638.7 mGy-cm. This CT exam was performed using one or more of the following dose reduction techniques: automated exposure control, adjustment of the mA and/or kV according to patient size, and/or use of iterative reconstruction technique. MIP reconstructed images were created and reviewed. COMPARISON: 08/28/17. FINDINGS: VASCULATURE: Aorta: No acute findings. No aortic aneurysm. No dissection. Pulmonary arteries: Unremarkable as visualized. No pulmonary embolism is identified. Great vessels of aortic arch: No acute findings. No dissection. No arterial occlusion or significant stenosis. Celiac trunk and mesenteric arteries: No acute findings. No occlusion or significant stenosis. Renal arteries: No acute findings. No occlusion or significant stenosis. Iliac arteries: No acute findings. No occlusion or significant stenosis. CHEST: Lungs: Bibasilar atelectasis. Pleural space: Unremarkable. No significant effusion. No pneumothorax. Heart: Unremarkable. No cardiomegaly. No significant pericardial effusion. ABDOMEN: Liver: Fatty infiltration of the liver. Small calcification of the posterior aspect of the right hepatic lobe. Gallbladder and bile ducts: Unremarkable. No calcified stones. No ductal dilation. Pancreas: Unremarkable. No ductal dilation. No mass. Spleen: Unremarkable. No splenomegaly. Adrenals: Unremarkable. No mass. Kidneys and ureters: 5.7 cm simple right renal cyst. No hydronephrosis. No solid mass. Stomach and bowel: Unremarkable. No obstruction. No mucosal thickening. Appendix: Prior appendectomy. PELVIS: Bladder: Nonvisualized. CHEST, ABDOMEN and PELVIS: Intraperitoneal space: Small volume ascites No free air. Bones/joints: No acute fracture. Posterior fusion at the L4-L5 level with intervertebral disc spacer present Soft tissues: Small fat-containing umbilical hernia.. Lymph nodes: There are multiple enlarged mediastinal and perihilar lymph nodes. Conglomerate adenopathy in the right paratracheal region measures approximately 6.6 x 5.6 x 3.2 cm. Enlarged subcarinal lymph node measuring 2.2 cm in short axis diameter. Other findings: IMPRESSION: No evidence of aortic dissection or central pulmonary embolus. There is nonspecific mediastinal and perihilar adenopathy. Findings may be secondary to infectious, inflammatory, or neoplastic/lymphoproliferative disorders. Small volume ascites.
[2017-09-23] MEDS ORDERED: AZITHROMYCIN 500 MG TAB PO STA (03:42)
[2017-09-23] MEDS ORDERED: LEVOFLOXACIN 750 MG TAB PO STA (03:53)
[2017-09-23] MEDS ORDERED: ONDANSETRON 4 MG/2 ML VIAL IVP STA (03:58)
[2017-09-23 03:59] VITALS: BP 98/54; PULSE 94; RESP 18; TEMP 98
== END 2017-09-23 04:06 | disposition home or self-care (01) ==
LOC: EC 00:29
DX: R59.0 Localized enlarged lymph nodes (principal); I45.2 Bifascicular block; R10.31 Right lower quadrant pain; R10.32 Left lower quadrant pain; R10.13 Epigastric pain; R11.2 Nausea with vomiting, unspecified; I10 Essential (primary) hypertension; E66.9 Obesity, unspecified; Z79.3 Long term (current) use of hormonal contraceptives; Z79.899 Other long term (current) drug therapy; Z90.49 Acquired absence of other specified parts of digestive tract; Z68.34 Body mass index [BMI] 34.0-34.9, adult
CPT/HCPCS: 36415; 71045; 71275; 74176; 75635; 80053; 82150; 82550; 82553; 83690; 83735; 84484; 85025; 85379; 85610; 85730; 93005; 96374; 99285

== ENCOUNTER 2018-07-08 17:04 | Inpatient (IN) | payer OTHER ==
[2018-07-08] MEDS ORDERED: ONDANSETRON 4 MG/2 ML VIAL IVP STA (17:22)
[2018-07-08] MEDS ORDERED: SODIUM CHLORIDE 0.9% 1,000 ML IV STA (17:22)
[2018-07-08] MEDS ORDERED: FAMOTIDINE 20 MG/2 ML VIAL IV STA (17:25)
--- NOTE | 2018-07-08 17:30 | ED ---
General Adult HPI - General Chief complaint: Nausea/Vomiting/Diarrhea Stated complaint: Vomiting Time Seen by Provider: 07/08/18 17:12 Source: patient, RN notes reviewed Mode of arrival: ambulatory Limitations: no limitations - History of Present Illness Initial comments: Patient is a pleasant 47-year-old female presenting to the emergency department with nausea vomiting. Onset of symptoms was around 1:30 this morning. has vomited approximately a dozen times. Patient still feels nauseated. No constipation or diarrhea. No fevers. Patient does have epigastric discomfort without radiation. No back discomfort. No chest pain. Patient does feel short of breath. No history of similar symptoms chronically. - Related Data Home Medications Medication Instructions Recorded Confirmed Lisinopril [Zestril] 10 mg PO DAILY 08/28/17 07/08/18 Calcium Carbonate [Tums] 1,000 mg PO TID 07/08/18 07/08/18 Norethindrone-E.estradiol-Iron 1 tab PO DAILY 07/08/18 07/08/18 [Junel Fe 1.5 mg-30 Mcg Tablet] Allergies Allergy/AdvReac Type Severity Reaction Status Date / Time No Known Allergies Allergy Verified 07/08/18 17:38 Review of Systems ROS Statement: Those systems with pertinent positive or pertinent negative responses have been documented in the HPI. ROS Other: All systems not noted in ROS Statement are negative. Constitutional: Denies: fever Eyes: Denies: eye pain ENT: Denies: ear pain Respiratory: Reports: dyspnea. Denies: cough Cardiovascular: Denies: chest pain Gastrointestinal: Reports: abdominal pain, nausea, vomiting Genitourinary: Denies: dysuria Musculoskeletal: Denies: back pain Skin: Denies: rash Neurological: Denies: weakness Past Medical History Past Medical History: Hypertension Additional Past Medical History / Comment(s): pinched nerves in spine. History of Any Multi-Drug Resistant Organisms: None Reported Past Surgical History: Appendectomy, Back Surgery, Tonsillectomy, Tubal Ligation Additional Past Surgical History / Comment(s): 2016 lumbar fusion Past Anesthesia/Blood Transfusion Reactions: Postoperative Nausea & Vomiting ( PONV) Past Psychological History: No Psychological Hx Reported Smoking Status: Never smoker Past Alcohol Use History: None Reported Past Drug Use History: None Reported - Past Family History Mother Family Medical History: No Reported History Additional Family Medical History / Comment(s): Mother is healthy and is in her 70's Father Family Medical History: No Reported History Additional Family Medical History / Comment(s): Father is healthy. He is in his 70s General Exam Limitations: no limitations General appearance: alert, in no apparent distress Head exam: Present: atraumatic Eye exam: Present: normal appearance, PERRL ENT exam: Present: normal oropharynx Neck exam: Present: normal inspection Respiratory exam: Present: normal lung sounds bilaterally. Absent: respiratory distress, chest wall tenderness Cardiovascular Exam: Present: normal rhythm, tachycardia Expanded Peripheral pulses: 2+: Posterior Tibialis (R), Posterior Tibialis (L), Dorsalis Pedis (R), Dorsalis Pedis (L) GI/Abdominal exam: Present: soft, tenderness (Moderate epigastric tenderness), normal bowel sounds. Absent: distended, rebound, rigid, pulsatile mass Extremities exam: Present: normal inspection. Absent: pedal edema, calf tenderness Back exam: Present: normal inspection Neurological exam: Present: alert Psychiatric exam: Present: normal affect, normal mood Skin exam: Present: normal color Course Vital Signs 07/08/18 07/08/18 07/08/18 17:09 18:00 18:30 Temperature 98 F Pulse Rate 116 H 105 H 105 H Respiratory 18 18 12 Rate Blood Pressure 141/87 146/92 141/93 O2 Sat by Pulse 95 96 97 Oximetry 07/08/18 19:00 Temperature Pulse Rate 93 Respiratory 16 Rate Blood Pressure 144/89 O2 Sat by Pulse 98 Oximetry EKG Findings - EKG Comments: EKG Findings:: Sinus tachycardia 1:15. LA 140. QRS 112. QT 346. QTc 478. Left axis. Right bundle branch block. Left anterior fascicular block. LVH criteria. No acute ST change. Medical Decision Making - Medical Decision Making Patient reevaluated and somewhat improved. Patient is updated on results. Patient is unaware of any history of mediastinal adenopathy or ascites. Case was discussed with Dr. Connell, who will admit for Dr. Teixeira. - Lab Data Result diagrams: 07/08/18 17:40 07/08/18 17:40 Lab Results 07/08/18 07/08/18 07/08/18 Range/Units 17:40 17:40 17:40 WBC (3.8-10.6) k/uL RBC (3.80-5.40) m/uL Hgb (11.4-16.0) gm/dL Hct (34.0-46.0) % MCV (80.0-100.0) fL MCH (25.0-35.0) pg MCHC (31.0-37.0) g/dL RDW (11.5-15.5) % Plt Count (150-450) k/uL Neutrophils % % Lymphocytes % % Monocytes % % Eosinophils % % Basophils % % Neutrophils # (1.3-7.7) k/uL Lymphocytes # (1.0-4.8) k/uL Monocytes # (0-1.0) k/uL Eosinophils # (0-0.7) k/uL Basophils # (0-0.2) k/uL PT 9.7 (9.0-12.0) sec INR 1.0 (<1.2) APTT 22.3 (22.0-30.0) sec D-Dimer 20.56 H (<0.60) mg/L FEU Sodium 139 (137-145) mmol/L Potassium 4.7 (3.5-5.1) mmol/L Chloride 111 H (98-107) mmol/L Carbon Dioxide 17 L (22-30) mmol/L Anion Gap 11 mmol/L BUN 13 (7-17) mg/dL Creatinine 0.76 (0.52-1.04) mg/dL Est GFR (CKD-EPI)AfAm >90 (>60 ml/min/1.73 sqM) Est GFR (CKD-EPI)NonAf >90 (>60 ml/min/1.73 sqM) Glucose 120 H (74-99) mg/dL Calcium 10.3 H (8.4-10.2) mg/dL Total Bilirubin 0.5 (0.2-1.3) mg/dL AST 26 (14-36) U/L ALT 21 (9-52) U/L Alkaline Phosphatase 42 (38-126) U/L Total Creatine Kinase 89 (30-135) U/L CK-MB (CK-2) 2.3 (0.0-2.4) ng/mL CK-MB (CK-2) Rel Index 2.6 Troponin I <0.012 (0.000-0.034) ng/mL Total Protein 6.9 (6.3-8.2) g/dL Albumin 3.8 (3.5-5.0) g/dL Amylase 67 (30-110) U/L Lipase 68 (23-300) U/L 07/08/ Range/Units 17:40 WBC 16.4 H (3.8-10.6) k/uL RBC 5.53 H (3.80-5.40) m/uL Hgb 16.4 H (11.4-16.0) gm/dL Hct 50.0 H (34.0-46.0) % MCV 90.5 (80.0-100.0) fL MCH 29.7 (25.0-35.0) pg MCHC 32.8 (31.0-37.0) g/dL RDW 14.4 (11.5-15.5) % Plt Count 430 (150-450) k/uL Neutrophils % 81 % Lymphocytes % 12 % Monocytes % 4 % Eosinophils % 2 % Basophils % 0 % Neutrophils # 13.2 H (1.3-7.7) k/uL Lymphocytes # 2.0 (1.0-4.8) k/uL Monocytes # 0.7 (0-1.0) k/uL Eosinophils # 0.3 (0-0.7) k/uL Basophils # 0.0 (0-0.2) k/uL PT (9.0-12.0) sec INR (<1.2) APTT (22.0-30.0) sec D-Dimer (<0.60) mg/L FEU Sodium (137-145) mmol/L Potassium (3.5-5.1) mmol/L Chloride (98-107) mmol/L Carbon Dioxide (22-30) mmol/L Anion Gap mmol/L BUN (7-17) mg/dL Creatinine (0.52-1.04) mg/dL Est GFR (CKD-EPI)AfAm (>60 ml/min/1.73 sqM) Est GFR (CKD-EPI)NonAf (>60 ml/min/1.73 sqM) Glucose (74-99) mg/dL Calcium (8.4-10.2) mg/dL Total Bilirubin (0.2-1.3) mg/dL AST (14-36) U/L ALT (9-52) U/L Alkaline Phosphatase (38-126) U/L Total Creatine Kinase (30-135) U/L CK-MB (CK-2) (0.0-2.4) ng/mL CK-MB (CK-2) Rel Index Troponin I (0.000-0.034) ng/mL Total Protein (6.3-8.2) g/dL Albumin (3.5-5.0) g/dL Amylase (30-110) U/L Lipase (23-300) U/L - Radiology Data Radiology results: report reviewed (Computed tomography scan of the thoracic aorta shows no acute aortic problem. There is mediastinal adenopathy and abdominal ascites. Normal opacification of the pulmonary arteries.), image reviewed (Chest x-ray and abdominal x-ray revealed no acute process) Disposition Clinical Impression: Mediastinal adenopathy, Ascites, Intractable vomiting Disposition: ADMITTED IP TO THIS HOSP Is patient prescribed a controlled substance at d/c from ED?: No Referrals: Beti Teixeira MD [Primary Care Provider] - 1-2 days Decision Time: 19:47
[2018-07-08 17:54] LABS: Basophils % (A) 0 %; Eosinophils # (A) 0.3 k/uL (0-0.7); Eosinophils % (A) 2 %; HGB 16.4 gm/dL (11.4-16.0); Lymphocytes % (A) 12 %; MCH 29.7 pg (25.0-35.0); MCHC 32.8 g/dL (31.0-37.0); MCV 90.5 fL (80.0-100.0); Mean Platelet Volume 6.6; Monocytes # (A) 0.7 k/uL (0-1.0); Monocytes % (A) 4 %; Neutrophils # (A) 13.2 k/uL (1.3-7.7); Neutrophils % (A) 81 %; Platelet Count 430 k/uL (150-450); RBC 5.53 m/uL (3.80-5.40); RDW 14.4 % (11.5-15.5); WBC 16.4 k/uL (3.8-10.6)
[2018-07-08 18:02] LABS: ALT 21 U/L (9-52); AST 26 U/L (14-36); Albumin 3.8 g/dL (3.5-5.0); Alkaline Phosphatase 42 U/L (38-126); Amylase 67 U/L (30-110); Anion Gap 11 mmol/L; Blood Urea Nitrogen 13 mg/dL (7-17); Calcium 10.3 mg/dL (8.4-10.2); Carbon Dioxide 17 mmol/L (22-30); Chloride 111 mmol/L (98-107); Glucose 120 mg/dL (74-99); Lipase 68 U/L (23-300); Potassium 4.7 mmol/L (3.5-5.1); Sodium 139 mmol/L (137-145); Total Bilirubin 0.5 mg/dL (0.2-1.3); Total Protein 6.9 g/dL (6.3-8.2)
[2018-07-08 18:05] LABS: Creatine Kinase 89 U/L (30-135)
--- NOTE | 2018-07-08 18:06 | XR ---
EXAMINATION TYPE: XR chest 2V DATE OF EXAM: 07/08/2018 COMPARISON: 09/23/2017 HISTORY: Chest pain TECHNIQUE: Frontal and lateral views of the chest are obtained. FINDINGS: Heart and mediastinum are normal. Lungs are clear. Diaphragm is normal. Bony thorax is int act. There are chest leads. IMPRESSION: Normal chest. There is clearing of a small infiltrate at the left lung base compared to old exam.
--- NOTE | 2018-07-08 18:07 | XR ---
EXAMINATION TYPE: XR abdomen 2V DATE OF EXAM: 07/08/2018 COMPARISON: NONE HISTORY: Chest pain vomiting TECHNIQUE: 3 views FINDINGS: There is no sign of intestinal obstruction or pneumoperitoneum. Fecal pattern is normal. Th ere are no pathologic calcifications over the kidneys. There is lumbar spine fusion surgery at L4-5. IMPRESSION: Nonacute abdomen.
[2018-07-08 18:12] LABS: Partial Thromboplastin Time 22.3 sec (22.0-30.0); Prothrombin Time 9.7 sec (9.0-12.0)
[2018-07-08 18:17] LABS: D-Dimer 20.56 mg/L FEU (<0.60)
[2018-07-08 18:19] LABS: Creatine Kinase MB 2.3 ng/mL (0.0-2.4); Troponin I <0.012 ng/mL (0.000-0.034)
[2018-07-08] MEDS ORDERED: MORPHINE SULFATE 4 MG/ML SYRINGE IVP STA (19:02)
--- NOTE | 2018-07-08 19:32 | CT ---
EXAMINATION TYPE: CT angio thor/abd pel aorta DATE OF EXAM: 07/08/2018 COMPARISON: 09/23/2017 HISTORY: Mid sternal pain and vomiting. CT DLP: 3950 mGycm. Automated Exposure Control for Dose Reduction was Utilized. CONTRAST: CT scan of the thorax, abdomen and pelvis is performed without and with IV Contrast, patient injected with 100ml mL of Isovue 370. FINDINGS: Multiple axial sections were obtained from the thoracic inlet to the floor the pelvis with and withou t IV contrast. There are 3-D post processed images. There is extensive mediastinal adenopathy with multiple enlarged lymph nodes that measure up to 3 cm. There is normal contrast opacification of the pulmonary arteries. There is normal contrast opacifica tion of the aortic arch. There is no evidence of aneurysm or dissection. The ascending aorta measures 3.8 cm. Celiac artery and superior mesenteric artery appear normal. Renal arteries appear normal. Abdominal a katie has normal size and contour. There is normal contrast opacification of the common internal and e xternal iliac arteries and both femoral arteries. There is no inguinal hernia. There is no inguinal a denopathy. There is moderate ascites fluid in the abdomen. I see no discrete liver mass. Gallbladder spleen pancreas appear normal. There is 6 cm cortical cyst lateral right kidney. There is no hydronephrosis. There is no retroperitoneal adenopathy. Uterus is a nteverted. There is no mesenteric edema or adenopathy. The lungs are clear of infiltrate. There is no evidence of a pulmonary mass. IMPRESSION: Negative CT angiogram of the chest abdomen pelvis. Massive mediastinal adenopathy similar to old exam. There is increased abdominal ascites compared to old exam. No evidence of pulmonary emb olism.
[2018-07-08] MEDS ORDERED: NALOXONE 0.4 MG/ML 1 ML VIAL IV PRN (19:47)
[2018-07-08] MEDS ORDERED: ONDANSETRON 4 MG/2 ML VIAL IVP PRN (19:47)
[2018-07-08 20:52] LABS: Hepatitis A AB IgM Index 0.01; Hepatitis A Antibody IgM NEGATIVE
[2018-07-08 21:12] VITALS: BMI 36.6
[2018-07-08] MEDS: PANTOPRAZOLE 40 MG/10 ML VIAL IV SCH (21:31)
[2018-07-09] MEDS: SODIUM CHLORIDE 0.9% 1,000 ML IV SCH ×3 (02:00→21:00)
[2018-07-09 03:11] LABS: Hepatitis B Core IgM Non-Reactive (Non-Reactive)
[2018-07-09 06:15] LABS: Appearance,Urine Clear (Clear); Bilirubin,Urine Negative (Negative); Blood,Urine Negative (Negative); Color,Urine Yellow; Glucose,Urine (UA) Negative (Negative); Ketones,Urine Negative (Negative); Leukocyte Esterase,Urine Small (Negative); Mucus,Urine Occasional /hpf; Nitrite,Urine Negative (Negative); PH, Urine 5.5 (5.0-8.0); Protein,Urine Trace (Negative); Squamous Epithelial Cell,Urine 10 /hpf (0-4); Urobilinogen,Urine <2.0 mg/dL (<2.0); WBC,Urine 2 /hpf (0-5)
[2018-07-09 06:34] LABS: Specific Gravity,Urine >1.050 (1.001-1.035)
[2018-07-09 06:59] LABS: Potassium 4.9 mmol/L (3.5-5.1); Total Bilirubin 0.5 mg/dL (0.2-1.3); Total Protein 5.8 g/dL (6.3-8.2)
[2018-07-09 07:07] LABS: Basophils % (A) 0 %; Eosinophils # (A) 0.5 k/uL (0-0.7); Eosinophils % (A) 5 %; HCT 41.2 % (34.0-46.0); Lymphocytes # (A) 2.1 k/uL (1.0-4.8); Lymphocytes % (A) 21 %; MCH 29.7 pg (25.0-35.0); MCHC 32.2 g/dL (31.0-37.0); MCV 92.3 fL (80.0-100.0); Mean Platelet Volume 6.2; Monocytes # (A) 0.5 k/uL (0-1.0); Monocytes % (A) 6 %; Neutrophils # (A) 6.3 k/uL (1.3-7.7); Neutrophils % (A) 65 %; Platelet Count 317 k/uL (150-450); RBC 4.47 m/uL (3.80-5.40); RDW 14.4 % (11.5-15.5); WBC 9.7 k/uL (3.8-10.6)
[2018-07-09 07:13] LABS: HGB 13.3 gm/dL (11.4-16.0)
[2018-07-09] MEDS: MORPHINE SULFATE 4 MG/ML SYRINGE IV PRN ×2 (08:51→17:28)
[2018-07-09] MEDS: PANTOPRAZOLE 40 MG/10 ML VIAL IV SCH (08:52)
--- NOTE | 2018-07-09 09:33 | US ---
EXAMINATION TYPE: US gallbladder DATE OF EXAM: 07/09/2018 COMPARISON: CTA from yesterday CLINICAL HISTORY: eval gb and liver. abd pain and vomiting yesterday EXAM MEASUREMENTS: Liver Length: 16.6 cm Gallbladder Wall: 0.1 cm CBD: 0.3 cm Right Kidney: 12.3 x 5.9 x 5.8 cm Pancreas: wnl Liver: intercostal imaging due to bowel gas, wnl Gallbladder: multiple stones seen with no wall thickening Evidence for sonographic Corral's sign: no CBD: wnl Right Kidney: 6.0cm midpole renal cyst seen Visualized pancreas remains within normal limits. Visualized liver is heterogeneously hyperechoic sug gesting diffuse fatty infiltration. Small mobile gallstones are seen dependently in gallbladder. No p ericholecystic fluid or abnormal gallbladder wall thickening is identified. Simple appearing 6.0 cm c yst right kidney laterally mid to lower pole level is redemonstrated. IMPRESSION: Gallstones without secondary ultrasound evidence for acute cholecystitis. Probable fatty infiltration of liver. Small perihepatic ascites along right inferior margin liver on CT is not as we ll seen on ultrasound.
--- NOTE | 2018-07-09 11:42 | P.CONS ---
History of Present Illness - Reason for Consult Consult date: 07/09/18 ascites epigastric pain nausea vomiting Requesting physician: Simran Connell - Chief Complaint epigastric pain nausea vomiting shortness of breath - History of Present Illness 47 year old female patient of Dr. Teixeira with a past medical history of appendectomy August 2017, obesity, hypertension, tubal ligation, and lumbar fusion. Patient has been in her normal state of health until yesterday which she developed severe epigastric pain with intractable nausea vomiting shortness of breath without hemoptysis, hematemesis hematochezia or melena. Denies fever chills rigors or unusual weight loss. No history of these types of symptoms. No history of peptic ulcer disease. No history of EGD or colonoscopy. Admission white count 16.4. Hemoglobin 16.4. MCV 90. Platelet 4:30. INR 1.0. D-dimer 20.5. BUN 11. Creatinine 0.7. Pancreatic and liver enzymes within normal limits. Serum albumin 3.8. Hepatitis screen nonreactive. Abdominal x-rays nonacute abdomen. CT angio massive mediastinal adenopathy increased abdominal ascites compared to old exam no evidence of pulmonary embolism. Celiac SMA appeared normal. Moderate ascites fluid in the abdomen. No discrete liver mass. Gallbladder spleen and pancreas appeared normal. No mesenteric edema or adenopathy. Gallbladder ultrasound cholelithiasis CBD within normal limits. Pancreas within normal limits. Visualized liver heterogeneously hypoechoic suggesting diffuse fatty infiltration. No pericholecystic fluid or abnormal gallbladder wall thickening. 6 cm simple appearing right kidney cyst. Denies hematuria or unusual vaginal discharge. Patient has not seen a SOCIAL SCIENCES DEPARTMENT CHAIR for several years but has a history of heavy menstruation. She has her yearly Paps performed by her primary care physician. She takes control on a monthly basis to suppress her periods. Review of Systems Constitutional: Denies fever, chills, sweats, weight gain, or loss. HEENT: Negative for migraines, blurred vision or loss, earaches, drainage, tinnitus, oral mucosal lesions, dysphagia, or odynophagia. CARDIAC: Negative for chest pain, arrhythmias, or palpitation. RESPIRATORY: Admitted with shortness of breath, denies hemoptysis, cough, or sputum production. GI: See HPI for pertinent findings. : Negative for hematuria, urgency, frequency, polyuria, or dysuria. GYNc: Denies possibility of . Negative vaginal discharge. MUSCULOSKELETAL: Negative for muscle aches, swelling, arthritis, and arthralgias. NEUROLOGIC: Negative for stroke or TIA. ENDOCRINE: Negative for thyroid problems. SKIN: Negative for rash or itching. PSYCHIATRIC: Negative history for depression and anxiety Past Medical History Past Medical History: Hypertension Additional Past Medical History / Comment(s): pinched nerves in spine. History of Any Multi-Drug Resistant Organisms: None Reported Past Surgical History: Appendectomy, Back Surgery, Tonsillectomy, Tubal Ligation Additional Past Surgical History / Comment(s): 2016 lumbar fusion Past Anesthesia/Blood Transfusion Reactions: Postoperative Nausea & Vomiting ( PONV) Past Psychological History: No Psychological Hx Reported Additional Psychological History / Comment(s): Pt resides with family. She is independent. Smoking Status: Former smoker Past Alcohol Use History: None Reported Past Drug Use History: None Reported - Past Family History Mother Family Medical History: No Reported History Additional Family Medical History / Comment(s): Mother is healthy and is in her 70's Father Family Medical History: No Reported History Additional Family Medical History / Comment(s): Father is healthy. He is in his 70s Medications and Allergies Home Medications Medication Instructions Recorded Confirmed Type Lisinopril [Zestril] 10 mg PO DAILY 08/28/17 07/08/18 History Calcium Carbonate [Tums] 1,000 mg PO TID 07/08/18 07/08/18 History Norethindrone-E.estradiol-Iron 1 tab PO DAILY 07/08/18 07/08/18 History [Junel Fe 1.5 mg-30 Mcg Tablet] Allergies Allergy/AdvReac Type Severity Reaction Status Date / Time latex Allergy Rash/Hives Verified 07/09/18 02:04 Physical Exam Vitals: Vital Signs Temp Pulse Pulse Resp BP BP Pulse Ox 07/09/18 07:00 98.2 F 75 16 124/77 96 07/09/18 04:20 97.7 F 75 16 128/67 98 07/08/18 23:55 97.6 F 80 18 107/49 98 07/08/18 21:05 97.3 F L 81 16 127/78 99 07/08/18 20:55 98 07/08/18 20:00 90 17 146/92 07/08/18 19:30 100 15 150/89 96 07/08/18 19:00 93 16 144/89 98 07/08/18 18:30 105 H 12 141/93 97 07/08/18 18:00 105 H 18 146/92 96 07/08/18 17:09 98 F 116 H 18 141/87 95 Intake and Output 07/08/18 07/09/18 07/09/18 22:59 06:59 14:59 Output Total 430 Balance -430 Output: Urine 430 Other: Weight 106.2 kg 105.5 kg General appearance: The patient is alert, oriented, in no acute distress. HET: Head is normocephalic and atraumatic. Pupils are equal and reactive. Oropharynx is clear without lesions. Neck: Supple without lymphadenopathy. Trachea midline. Heart: S1 S2. Regular rate and rhythm. Lungs: No crackles or wheezes are heard. Abdomen: Soft, obese, midepigastric tenderness, nondistended with bowel sounds. No appreciable ascites palpated. No peritoneal signs. No palpable organomegaly or masses. Extremities: Normal skin color and turgor. No cyanosis, rash, ulceration, clubbing, or edema. Radial and pedal pulses are 2/4 bilaterally. Neurological: No focal deficits. Strength and sensation are grossly intact. Results CBC & Chem 7: 07/09/18 06:40 07/09/18 06:40 Labs: Abnormal Lab Results - Last 24 Hours (Table) 07/08/18 07/08/18 07/08/18 Range/Units 17:40 17:40 17:40 WBC 16.4 H (3.8-10.6) k/uL RBC 5.53 H (3.80-5.40) m/uL Hgb 16.4 H (11.4-16.0) gm/dL Hct 50.0 H (34.0-46.0) % Neutrophils # 13.2 H (1.3-7.7) k/uL D-Dimer 20.56 H (<0.60) mg/L FEU Chloride 111 H (98-107) mmol/L Carbon Dioxide 17 L (22-30) mmol/L Glucose 120 H (74-99) mg/dL Calcium 10.3 H (8.4-10.2) mg/dL Alkaline Phosphatase (38-126) U/L Total Protein (6.3-8.2) g/dL Albumin (3.5-5.0) g/dL Ur Specific [place] (1.001-1.035) Urine Protein (Negative) Ur Leukocyte Esterase (Negative) Ur Squamous Epith Cells (0-4) /hpf Urine Mucus (None) /hpf 07/09/18 07/09/18 Range/Units 05:25 06:40 WBC (3.8-10.6) k/uL RBC (3.80-5.40) m/uL Hgb (11.4-16.0) gm/dL Hct (34.0-46.0) % Neutrophils # (1.3-7.7) k/uL D-Dimer (<0.60) mg/L FEU Chloride 111 H (98-107) mmol/L Carbon Dioxide (22-30) mmol/L Glucose 101 H (74-99) mg/dL Calcium (8.4-10.2) mg/dL Alkaline Phosphatase 33 L (38-126) U/L Total Protein 5.8 L (6.3-8.2) g/dL Albumin 3.0 L (3.5-5.0) g/dL Ur Specific [place] >1.050 H (1.001-1.035) Urine Protein Trace H (Negative) Ur Leukocyte Esterase Small H (Negative) Ur Squamous Epith Cells 10 H (0-4) /hpf Urine Mucus Occasional H (None) /hpf Abdominal x-ray: report reviewed (Dr. Haddad) CT scan - chest: report reviewed (Dr. Haddad) US - abdomen: report reviewed (Dr. Haddad) Assessment and Plan (1) Epigastric pain Narrative/Plan: 47-year-old female presents with acute onset of shortness of breath elevated d- dimer epigastric pain with nonbloody emesis nausea new-onset of ascites, suspected fatty liver disease and mediastinal adenopathy per CT pulmonary embolism was excluded. Etiology of ascites is unclear at this time no obvious radiographic imaging evidence to suggest cirrhosis unremarkable liver function tests pancreatic enzymes and underlying chronic liver disease possible gynecological pathology cannot be entirely excluded. Underlying peptic ulcer disease neoplasm could not be excluded for cause of her epigastric pain. Current Visit: Yes Status: Acute Code(s): R10.13 - EPIGASTRIC PAIN SNOMED Code(s): 44041596 (2) Nausea & vomiting Current Visit: Yes Status: Acute Code(s): R11.2 - NAUSEA WITH VOMITING, UNSPECIFIED SNOMED Code(s): 25918879 (3) Ascites Current Visit: Yes Status: Acute Code(s): R18.8 - OTHER ASCITES SNOMED Code(s): 379107474 (4) Mediastinal adenopathy Current Visit: Yes Status: Acute Code(s): R59.0 - LOCALIZED ENLARGED LYMPH NODES SNOMED Code(s): 30690258 Plan: 1. Recommend EGD for further evaluation of epigastric pain nausea vomiting rule out peptic ulcer disease neoplasm secondary to massive mediastinal adenopathy seen on CT. If EGD is negative consideration to proceed with full serologic workup for chronic liver disease will be discussed. 2. Recommend diagnostic paracentesis with cytology case was discussed with interventional radiology; radiologist is reviewing imaging to see if procedure can be performed as early as today. 3. Recommend hematology/oncology consult for evaluation of mediastinal lymphadenopathy. 4. Protonix 40 mg daily. Nothing by mouth except medications. The general passenger agent has discussed the risks, benefits and alternative therapies for the above-mentioned procedure and for both sedation/analgesia as well as necessary blood product administration, if indicated, as they pertain to this patient. The patient has indicated understanding and acceptance of the risks and procedures discussed. Thank you for this kind referral and the opportunity to participate in the care of your patient. This consultation was discussed with Dr. Haddad. The impression and plan of care have been directed as dictated.
--- NOTE | 2018-07-09 17:25 | P.PN ---
Subjective Progress Note Date: 07/09/18 Principal diagnosis: Nausea/vomiting Ascites Mediastinotomy lymphadenopathy 47 year old female patient of Dr. Teixeira with a past medical history of appendectomy August 2017, obesity, hypertension, tubal ligation, and lumbar fusion. Patient has been in her normal state of health until yesterday which she developed severe epigastric pain with intractable nausea vomiting shortness of breath without hemoptysis, hematemesis hematochezia or melena. Denies fever chills rigors or unusual weight loss. No history of these types of symptoms. No history of peptic ulcer disease. No history of EGD or colonoscopy. Admission white count 16.4. Hemoglobin 16.4. MCV 90. Platelet 4:30. INR 1.0. D-dimer 20.5. BUN 11. Creatinine 0.7. Pancreatic and liver enzymes within normal limits. Serum albumin 3.8. Hepatitis screen nonreactive. Abdominal x-rays nonacute abdomen. CT angio massive mediastinal adenopathy increased abdominal ascites compared to old exam no evidence of pulmonary embolism. Celiac SMA appeared normal. Moderate ascites fluid in the abdomen. No discrete liver mass. Gallbladder spleen and pancreas appeared normal. No mesenteric edema or adenopathy. Gallbladder ultrasound cholelithiasis CBD within normal limits. Pancreas within normal limits. Visualized liver heterogeneously hypoechoic suggesting diffuse fatty infiltration. No pericholecystic fluid or abnormal gallbladder wall thickening. 6 cm simple appearing right kidney cyst. Denies hematuria or unusual vaginal discharge. Patient has not seen a MOSAIC L[employer]ER for several years but has a history of heavy menstruation. She has her yearly Paps performed by her primary care physician. She takes control on a monthly basis to suppress her periods. Objective - Vital Signs Vital signs: Vital Signs Temp 98.2 F 07/09/18 07:00 Pulse 75 07/09/18 07:00 Resp 16 07/09/18 07:00 BP 124/77 07/09/18 07:00 Pulse Ox 96 07/09/18 07:00 Intake & Output 07/08/18 07/09/18 07/09/18 18:59 06:59 18:59 Output Total 430 Balance -430 Weight 107.048 kg 106.2 kg 105.5 kg Output: Urine 430 - Exam Patient is a pleasant 47-year-old female presenting to the emergency department with nausea vomiting. Onset of symptoms was around 1:30 this morning. has vomited approximately a dozen times. Patient still feels nauseated. No constipation or diarrhea. No fevers. Patient does have epigastric discomfort without radiation. No back discomfort. No chest pain. Patient does feel short of breath. No history of similar symptoms chronically. - Labs CBC & Chem 7: 07/09/18 06:40 07/09/18 06:40 Labs: Abnormal Lab Results - Last 24 Hours (Table) 07/08/18 07/08/18 07/08/18 Range/Units 17:40 17:40 17:40 WBC 16.4 H (3.8-10.6) k/uL RBC 5.53 H (3.80-5.40) m/uL Hgb 16.4 H (11.4-16.0) gm/dL Hct 50.0 H (34.0-46.0) % Neutrophils # 13.2 H (1.3-7.7) k/uL D-Dimer 20.56 H (<0.60) mg/L FEU Chloride 111 H (98-107) mmol/L Carbon Dioxide 17 L (22-30) mmol/L Glucose 120 H (74-99) mg/dL Calcium 10.3 H (8.4-10.2) mg/dL Alkaline Phosphatase (38-126) U/L Total Protein (6.3-8.2) g/dL Albumin (3.5-5.0) g/dL Ur Specific [place] (1.001-1.035) Urine Protein (Negative) Ur Leukocyte Esterase (Negative) Ur Squamous Epith Cells (0-4) /hpf Urine Mucus (None) /hpf 07/09/18 07/09/18 Range/Units 05:25 06:40 WBC (3.8-10.6) k/uL RBC (3.80-5.40) m/uL Hgb (11.4-16.0) gm/dL Hct (34.0-46.0) % Neutrophils # (1.3-7.7) k/uL D-Dimer (<0.60) mg/L FEU Chloride 111 H (98-107) mmol/L Carbon Dioxide (22-30) mmol/L Glucose 101 H (74-99) mg/dL Calcium (8.4-10.2) mg/dL Alkaline Phosphatase 33 L (38-126) U/L Total Protein 5.8 L (6.3-8.2) g/dL Albumin 3.0 L (3.5-5.0) g/dL Ur Specific [place] >1.050 H (1.001-1.035) Urine Protein Trace H (Negative) Ur Leukocyte Esterase Small H (Negative) Ur Squamous Epith Cells 10 H (0-4) /hpf Urine Mucus Occasional H (None) /hpf Assessment and Plan Assessment: 1. Intractable nausea/vomiting and abdominal pain - Underlying peptic ulcer disease/neoplasm cannot be excluded at this time - GI is on board and recommending EGD for evaluation of epigastric pain, nausea and vomiting and to rule out peptic ulcer disease versus neoplasm; in case of negative EGD recommendations are to proceed with full serologic workup for chronic liver disease - Continue with Protonix 40 mg daily until workup is complete 2. Ascites - Etiology of ascites is unclear at this time; no obvious radiographic evidence of cirrhosis - GI recommendations as discussed above - Diagnostic paracentesis with cytology is recommended; interventional radiology is consulted and reviewing imaging to see been the procedure can be performed earliest 3. Mediastinal lymphadenopathy - Hematology/oncology consult is done and recommendations are pending 4. Leukocytosis; possibly reactive - There are no signs of infectious etiology - We will monitor CBC closely and proceed with septic workup if white blood count remains elevated 5. Hypertension; fairly controlled on lisinopril 10 mg daily 6. DVT prophylaxis; SCDs only in the room of possible procedure for further diagnosis CODE STATUS; full code Time with Patient: Greater than 30
--- NOTE | 2018-07-09 17:27 | P.HPIM ---
History of Present Illness H&P Date: 07/09/18 Chief Complaint: Intractable nausea/vomiting/abdominal pain; new onset ascites 47 year old female patient of Dr. Teixeira with a past medical history of appendectomy August 2017, obesity, hypertension, tubal ligation, and lumbar fusion. Patient has been in her normal state of health until yesterday which she developed severe epigastric pain with intractable nausea vomiting shortness of breath without hemoptysis, hematemesis hematochezia or melena. Denies fever chills rigors or unusual weight loss. No history of these types of symptoms. No history of peptic ulcer disease. No history of EGD or colonoscopy. Admission white count 16.4. Hemoglobin 16.4. MCV 90. Platelet 4:30. INR 1.0. D-dimer 20.5. BUN 11. Creatinine 0.7. Pancreatic and liver enzymes within normal limits. Serum albumin 3.8. Hepatitis screen nonreactive. Abdominal x-rays nonacute abdomen. CT angio massive mediastinal adenopathy increased abdominal ascites compared to old exam no evidence of pulmonary embolism. Celiac SMA appeared normal. Moderate ascites fluid in the abdomen. No discrete liver mass. Gallbladder spleen and pancreas appeared normal. No mesenteric edema or adenopathy. Gallbladder ultrasound cholelithiasis CBD within normal limits. Pancreas within normal limits. Visualized liver heterogeneously hypoechoic suggesting diffuse fatty infiltration. No pericholecystic fluid or abnormal gallbladder wall thickening. 6 cm simple appearing right kidney cyst. Denies hematuria or unusual vaginal discharge. Patient has not seen a NURSING STAFF DEVELOPMENT COORDINATOR for several years but has a history of heavy menstruation. She has her yearly Paps performed by her primary care physician. She takes control on a monthly basis to suppress her periods. Review of Systems Constitutional: Denies fever, chills, sweats, weight gain, or loss. HEENT: Negative for migraines, blurred vision or loss, earaches, drainage, tinnitus, oral mucosal lesions, dysphagia, or odynophagia. CARDIAC: Negative for chest pain, arrhythmias, or palpitation. RESPIRATORY: Admitted with shortness of breath, denies hemoptysis, cough, or sputum production. GI: See HPI for pertinent findings. : Negative for hematuria, urgency, frequency, polyuria, or dysuria. GYNc: Denies possibility of . Negative vaginal discharge. MUSCULOSKELETAL: Negative for muscle aches, swelling, arthritis, and arthralgias. NEUROLOGIC: Negative for stroke or TIA. ENDOCRINE: Negative for thyroid problems. SKIN: Negative for rash or itching. PSYCHIATRIC: Negative history for depression and anxiety Past Medical History Past Medical History: Hypertension Additional Past Medical History / Comment(s): pinched nerves in spine. History of Any Multi-Drug Resistant Organisms: None Reported Past Surgical History: Appendectomy, Back Surgery, Tonsillectomy, Tubal Ligation Additional Past Surgical History / Comment(s): 2016 lumbar fusion Past Anesthesia/Blood Transfusion Reactions: Postoperative Nausea & Vomiting ( PONV) Past Psychological History: No Psychological Hx Reported Additional Psychological History / Comment(s): Pt resides with family. She is independent. Smoking Status: Former smoker Past Alcohol Use History: None Reported Past Drug Use History: None Reported - Past Family History Mother Family Medical History: No Reported History Additional Family Medical History / Comment(s): Mother is healthy and is in her 70's Father Family Medical History: No Reported History Additional Family Medical History / Comment(s): Father is healthy. He is in his 70s Medications and Allergies Home Medications Medication Instructions Recorded Confirmed Type Lisinopril [Zestril] 10 mg PO DAILY 08/28/17 07/08/18 History Calcium Carbonate [Tums] 1,000 mg PO TID 07/08/18 07/08/18 History Norethindrone-E.estradiol-Iron 1 tab PO DAILY 07/08/18 07/08/18 History [Junel Fe 1.5 mg-30 Mcg Tablet] Allergies Allergy/AdvReac Type Severity Reaction Status Date / Time latex Allergy Rash/Hives Verified 07/09/18 02:04 Physical Exam Vitals: Vital Signs Temp Pulse Pulse Resp BP BP Pulse Ox 07/09/18 15:51 98.1 F 82 20 125/76 96 07/09/18 11:53 98.1 F 82 17 135/83 96 07/09/18 07:00 98.2 F 75 16 124/77 96 07/09/18 04:20 97.7 F 75 16 128/67 98 07/08/18 23:55 97.6 F 80 18 107/49 98 07/08/18 21:05 97.3 F L 81 16 127/78 99 07/08/18 20:55 98 07/08/18 20:00 90 17 146/92 07/08/18 19:30 100 15 150/89 96 07/08/18 19:00 93 16 144/89 98 07/08/18 18:30 105 H 12 141/93 97 07/08/18 18:00 105 H 18 146/92 96 Intake and Output 07/09/18 07/09/18 07/09/18 06:59 14:59 22:59 Intake Total 640 Output Total 430 Balance -430 640 Intake: Intake, IV Titration 400 Amount Sodium Chloride 0.9% 1, 400 000 ml @ 50 mls/hr IV . Q20H [facility] Rx#:[id number] Oral 240 Output: Urine 430 Other: Weight 105.5 kg General appearance: The patient is alert, oriented, in no acute distress. HET: Head is normocephalic and atraumatic. Pupils are equal and reactive. Oropharynx is clear without lesions. Neck: Supple without lymphadenopathy. Trachea midline. Heart: S1 S2. Regular rate and rhythm. Lungs: No crackles or wheezes are heard. Abdomen: Soft, obese, midepigastric tenderness, nondistended with bowel sounds. No appreciable ascites palpated. No peritoneal signs. No palpable organomegaly or masses. Extremities: Normal skin color and turgor. No cyanosis, rash, ulceration, clubbing, or edema. Radial and pedal pulses are 2/4 bilaterally. Neurological: No focal deficits. Strength and sensation are grossly intact. Results CBC & Chem 7: 07/09/18 06:40 07/09/18 06:40 Labs: Abnormal Lab Results - Last 24 Hours (Table) 07/08/18 07/08/18 07/08/18 Range/Units 17:40 17:40 17:40 WBC 16.4 H (3.8-10.6) k/uL RBC 5.53 H (3.80-5.40) m/uL Hgb 16.4 H (11.4-16.0) gm/dL Hct 50.0 H (34.0-46.0) % Neutrophils # 13.2 H (1.3-7.7) k/uL D-Dimer 20.56 H (<0.60) mg/L FEU Chloride 111 H (98-107) mmol/L Carbon Dioxide 17 L (22-30) mmol/L Glucose 120 H (74-99) mg/dL Calcium 10.3 H (8.4-10.2) mg/dL Alkaline Phosphatase (38-126) U/L Total Protein (6.3-8.2) g/dL Albumin (3.5-5.0) g/dL Ur Specific [place] (1.001-1.035) Urine Protein (Negative) Ur Leukocyte Esterase (Negative) Ur Squamous Epith Cells (0-4) /hpf Urine Mucus (None) /hpf 07/09/18 07/09/18 Range/Units 05:25 06:40 WBC (3.8-10.6) k/uL RBC (3.80-5.40) m/uL Hgb (11.4-16.0) gm/dL Hct (34.0-46.0) % Neutrophils # (1.3-7.7) k/uL D-Dimer (<0.60) mg/L FEU Chloride 111 H (98-107) mmol/L Carbon Dioxide (22-30) mmol/L Glucose 101 H (74-99) mg/dL Calcium (8.4-10.2) mg/dL Alkaline Phosphatase 33 L (38-126) U/L Total Protein 5.8 L (6.3-8.2) g/dL Albumin 3.0 L (3.5-5.0) g/dL Ur Specific [place] >1.050 H (1.001-1.035) Urine Protein Trace H (Negative) Ur Leukocyte Esterase Small H (Negative) Ur Squamous Epith Cells 10 H (0-4) /hpf Urine Mucus Occasional H (None) /hpf Thrombosis Risk Factor Assmnt - Choose All That Apply Any of the Below Risk Factors Present?: Yes Each Factor Represents 1 point: Age 41-60 years, Obesity (BMI >25) Other Risk Factors: No Thrombosis Risk Factor Assessment Total Risk Factor Score: 2 Thrombosis Risk Factor Assessment Level: Low Risk Assessment and Plan Assessment: 1. Intractable nausea/vomiting and abdominal pain - Underlying peptic ulcer disease/neoplasm cannot be excluded at this time - GI is on board and recommending EGD for evaluation of epigastric pain, nausea and vomiting and to rule out peptic ulcer disease versus neoplasm; in case of negative EGD recommendations are to proceed with full serologic workup for chronic liver disease - Continue with Protonix 40 mg daily until workup is complete 2. Ascites - Etiology of ascites is unclear at this time; no obvious radiographic evidence of cirrhosis - GI recommendations as discussed above - Diagnostic paracentesis with cytology is recommended; interventional radiology is consulted and reviewing imaging to see been the procedure can be performed earliest 3. Mediastinal lymphadenopathy - Hematology/oncology consult is done and recommendations are pending 4. Leukocytosis; possibly reactive - There are no signs of infectious etiology - We will monitor CBC closely and proceed with septic workup if white blood count remains elevated 5. Hypertension; fairly controlled on lisinopril 10 mg daily 6. DVT prophylaxis; SCDs only in the room of possible procedure for further diagnosis CODE STATUS; full code
--- NOTE | 2018-07-09 19:35 | P.CONS ---
History of Present Illness - Reason for Consult Consult date: 07/09/18 Mediastinal adenopathy, and ascites - History of Present Illness The patient is a 47-year-old white female, with overall well controlled medical problems. The patient presented to the emergency room with fairly acute onset of severe, sharp stabbing pain in the lower mid chest/upper mid abdomen. This was associated with multiple episodes of vomiting, up to 10 times. She denied any blood in her vomitus. She therefore came in to the emergency room and was admitted for further management. As part of her workup she had an ultrasound of the gallbladder which showed gallstones but no evidence of active cholecystitis. She also had CT angiogram of the thoracic aorta and abdominal vessels which showed node evidence of dissection or aneurysm. This mentioned presence of extensive mediastinal adenopathy with largest nodes measuring up to 3 cm in the hilar region. There is also evidence of abdominal ascites. Consult was therefore placed a further evaluation and recommendations. The patient had been admitted with somewhat similar complaints in 09/10. At that time she was found to have acute appendicitis and underwent surgery for the same. Incidentally she also had a CT angiogram of the thoracic aorta which showed adenopathy in the mediastinum. The findings appear to be similar to the current ones. The patient states that she did not have any workup after her discharge in 09/10 as it was our understanding that these were reactive. She denies any history of malignancy. Review of Systems Constitutional: Reports weakness Eyes: denies blurred vision, denies pain Ears: deny: decreased hearing, ear discharge, earache, tinnitus Ears, nose, mouth and throat: Denies headache, Denies sore throat Cardiovascular: Reports chest pain, Reports dyspnea on exertion Respiratory: Reports dyspnea, Reports pain Gastrointestinal: Reports abdominal pain, Reports bloating Genitourinary: Denies dysuria, Denies hematuria Musculoskeletal: Denies myalgias Integumentary: Denies pruritus, Denies rash Neurological: Reports weakness, Denies numbness Psychiatric: Denies anxiety, Denies depression Endocrine: Denies fatigue, Denies weight change Hematologic/Lymphatic: Reports lymphadenopathy Past Medical History Past Medical History: Hypertension Additional Past Medical History / Comment(s): pinched nerves in spine. History of Any Multi-Drug Resistant Organisms: None Reported Past Surgical History: Appendectomy, Back Surgery, Tonsillectomy, Tubal Ligation Additional Past Surgical History / Comment(s): 2016 lumbar fusion Past Anesthesia/Blood Transfusion Reactions: Postoperative Nausea & Vomiting ( PONV) Past Psychological History: No Psychological Hx Reported Additional Psychological History / Comment(s): Pt resides with family. She is independent. Smoking Status: Former smoker Past Alcohol Use History: None Reported Past Drug Use History: None Reported - Past Family History Mother Family Medical History: No Reported History Additional Family Medical History / Comment(s): Mother is healthy and is in her 70's Father Family Medical History: No Reported History Additional Family Medical History / Comment(s): Father is healthy. He is in his 70s Medications and Allergies Home Medications Medication Instructions Recorded Confirmed Type Lisinopril [Zestril] 10 mg PO DAILY 08/28/17 07/08/18 History Calcium Carbonate [Tums] 1,000 mg PO TID 07/08/18 07/08/18 History Norethindrone-E.estradiol-Iron 1 tab PO DAILY 07/08/18 07/08/18 History [Junel Fe 1.5 mg-30 Mcg Tablet] Allergies Allergy/AdvReac Type Severity Reaction Status Date / Time latex Allergy Rash/Hives Verified 07/09/18 02:04 Physical Exam Vitals: Vital Signs Temp Pulse Pulse Resp BP BP Pulse Ox 07/09/18 15:51 98.1 F 82 20 125/76 96 07/09/18 11:53 98.1 F 82 17 135/83 96 07/09/18 07:00 98.2 F 75 16 124/77 96 07/09/18 04:20 97.7 F 75 16 128/67 98 07/08/18 23:55 97.6 F 80 18 107/49 98 07/08/18 21:05 97.3 F L 81 16 127/78 99 07/08/18 20:55 98 07/08/18 20:00 90 17 146/92 07/08/18 19:30 100 15 150/89 96 Intake and Output 07/09/18 07/09/18 07/09/18 06:59 14:59 22:59 Intake Total 640 Output Total 430 Balance -430 640 Intake: Intake, IV Titration 400 Amount Sodium Chloride 0.9% 1, 400 000 ml @ 50 mls/hr IV . Q20H [facility] Rx#:[id number] Oral 240 Output: Urine 430 Other: Weight 105.5 kg - Constitutional General appearance: no acute distress - EENT Eyes: EOMI, PERRLA ENT: hearing grossly normal, normal oropharynx - Neck Neck: no lymphadenopathy Thyroid: bilateral: normal size - Respiratory Respiratory: bilateral: rales (Fairly mild) - Cardiovascular Rhythm: regular Heart sounds: normal: S1, S2 - Gastrointestinal General gastrointestinal: normal bowel sounds, soft - Integumentary Integumentary: normal - Neurologic Neurologic: CNII-XII intact - Musculoskeletal Musculoskeletal: generalized weakness, strength equal bilaterally - Psychiatric Psychiatric: A&O x's 3, appropriate affect Results CBC & Chem 7: 07/09/18 06:40 07/09/18 06:40 Labs: Abnormal Lab Results - Last 24 Hours (Table) 07/09/18 07/09/18 Range/Units 05:25 06:40 Chloride 111 H (98-107) mmol/L Glucose 101 H (74-99) mg/dL Alkaline Phosphatase 33 L (38-126) U/L Total Protein 5.8 L (6.3-8.2) g/dL Albumin 3.0 L (3.5-5.0) g/dL Ur Specific [place] >1.050 H (1.001-1.035) Urine Protein Trace H (Negative) Ur Leukocyte Esterase Small H (Negative) Ur Squamous Epith Cells 10 H (0-4) /hpf Urine Mucus Occasional H (None) /hpf Comments: Pathology report from her appendicectomy reviewed Chest x-ray: report reviewed Abdominal x-ray: report reviewed CT scan - abdomen: report reviewed CT scan - chest: report reviewed CT scan - pelvis: report reviewed US - abdomen: report reviewed Assessment and Plan (1) Mediastinal adenopathy Narrative/Plan: The patient appears to have fairly extensive mediastinal adenopathy, which is likely not causing any symptoms for her. Though extensive, there does not appear to be any significant progression compared to 09/10. The imaging results and possible implications were discussed with her. At this time malignancy as well as nonmalignant etiologies are both possibilities. The lack of symptoms and progression over almost 10 months would make an aggressive malignancy quite unlikely. The patient does not have any significant lab abnormalities either. The patient will need a biopsy for further workup. Pulmonary will be consulted to evaluate her for the same. I'll also order labs for adenopathy. Current Visit: Yes Status: Acute Code(s): R59.0 - LOCALIZED ENLARGED LYMPH NODES SNOMED Code(s): 29152216 (2) Ascites Narrative/Plan: The patient does complain of some abdominal bloating, but on exam the abdomen is fairly soft. Imaging did not indicate a major amount of ascites fluid. At this time we can continue to monitor, and consider paracentesis if she has progression clinically Current Visit: Yes Status: Acute Code(s): R18.8 - OTHER ASCITES SNOMED Code(s): 780746796 (3) Epigastric pain Narrative/Plan: The etiology of this is unclear. This is not likely to be related to the mediastinal adenopathy, as the adenopathy has been present and stable for about 10 months the patient has only had about 2 episodes of this kind of pain. Imaging of the abdomen does not reveal any specific pathology either that would explain her symptoms. The patient has been seen by gastroenterology, and I would agree with plan for an EGD. Current Visit: Yes Status: Acute Code(s): R10.13 - EPIGASTRIC PAIN SNOMED Code(s): 50643172
[2018-07-09] MEDS ORDERED: CALCIUM CARBONATE 500 MG CHEWABLE PO PRN (20:53)
[2018-07-10 07:26] LABS: Basophils % (A) 0 %; Eosinophils # (A) 0.4 k/uL (0-0.7); Eosinophils % (A) 6 %; HCT 38.4 % (34.0-46.0); Lymphocytes # (A) 1.5 k/uL (1.0-4.8); Lymphocytes % (A) 21 %; MCH 31.1 pg (25.0-35.0); MCHC 33.9 g/dL (31.0-37.0); MCV 91.6 fL (80.0-100.0); Mean Platelet Volume 7.1; Monocytes # (A) 0.4 k/uL (0-1.0); Monocytes % (A) 6 %; Neutrophils # (A) 4.7 k/uL (1.3-7.7); Neutrophils % (A) 66 %; Platelet Count 302 k/uL (150-450); RBC 4.19 m/uL (3.80-5.40); WBC 7.2 k/uL (3.8-10.6)
[2018-07-10 07:40] LABS: Anion Gap 8 mmol/L; Blood Urea Nitrogen 8 mg/dL (7-17); Calcium 8.6 mg/dL (8.4-10.2); Carbon Dioxide 22 mmol/L (22-30); Chloride 108 mmol/L (98-107); Glucose 78 mg/dL (74-99); LDH 383 U/L (313-618); Potassium 4.8 mmol/L (3.5-5.1); Sodium 138 mmol/L (137-145)
[2018-07-10] MEDS ORDERED: IV FLUID CONTINUATION 500 ML IV ONE (08:00)
[2018-07-10] MEDS ORDERED: LIDOCAINE 1% INJ 10MG/ML (20 ML MDV) ONE (08:01)
[2018-07-10] MEDS ORDERED: PROPOFOL 10 MG/ML 20 ML VIAL IV ONE (08:01)
[2018-07-10] MEDS: PANTOPRAZOLE 40 MG/10 ML VIAL IV SCH (08:44)
[2018-07-10] MEDS: LISINOPRIL 10 MG TAB PO SCH (08:44)
[2018-07-10] MEDS: SODIUM CHLORIDE 0.9% 1,000 ML IV SCH (08:44)
--- NOTE | 2018-07-10 08:44 | P.PCN ---
Date of Procedure: 07/10/18 Procedure(s) Performed: Procedure: Esophagogastroduodenoscopy and biopsy. Preoperative diagnosis: Epigastric pain, nausea and vomiting. Postoperative diagnosis: 1. Small hiatal hernia with no obvious esophagitis. 2. Mild antral gastritis. 3. Biopsies obtained from the duodenum, antrum and esophagus. Preparation sedation: Was provided by anesthesia. Brief clinical history: The patient is a 47-year-old female who presented to the hospital with severe epigastric pain and intractable nausea and vomiting as well as shortness of breath of few days duration. The patient denied any fever , chills, hemoptysis or hematemesis. She had workup to rule out cardiac etiology or pulmonary embolism. CT angiogram showed mediastinal adenopathy and moderate ascites in the abdomen. There was also evidence of cholelithiasis. There was no dilated common bile duct and her liver enzymes were normal. She was evaluated by hematology/oncology and her adenopathy is felt to be reactive. Cardiac and pulmonary etiology of her symptoms had been ruled out. This evaluation is to assess for peptic ulcer disease or other pathology. The patient gave history of occasional difficulties swallowing and would take Tums to relieve the discomfort. Other details are summarized in the history and physical and dictated consultations and progress notes. Procedure: With the patient on her left lateral decubitus position and after informed consent and adequate sedation, I passed the Olympus-GIF 160 video upper endoscope through the cricopharyngeus down the esophagus. GE junction was around 40 cm from the incisors and there was a small sliding hiatal hernia. The esophagus did not show any obvious esophagitis or Beckwith's esophagus. There was a short benign nonobstructing stricture at the level of the GE junction that did not impede the advancement of the endoscope. The endoscope was then advanced into the stomach which was insufflated with air and inspected in detail including the retroflex view in the cardia. There was minimal mottling and erythema in the antrum but no ulcers or erosions. Pyloric channel , duodenal bulb, post bulbar area and descending duodenum appeared within normal limits. I obtained multiple biopsies from the duodenum, antrum and esophagus then the endoscope was withdrawn. The patient tolerated the procedure well. Plan: The patient was reassured. Will await biopsy results. We will advance her diet as tolerated and make further plans based on her course. I would consider further workup for motility disorders depending on her course and especially if there is nutritional compromise. I see no indication at this time for esophageal dilation based on the appearance of her esophagus today.
[2018-07-10] MEDS: MORPHINE SULFATE 4 MG/ML SYRINGE IV PRN (08:50)
--- NOTE | 2018-07-10 15:19 | P.CNPUL ---
History of Present Illness Consult date: 07/10/18 Chief complaint: mediastinal lymphadenopathy History of present illness: I was consulted to see this 47-year-old female patient for mediastinal lymphadenopathy. The patient has extensive mediastinal lymphadenopathy that was originally noted on a CAT scan of the chest that was done in August 2017. No follow-up was done back then. The patient came in yesterday because of epigastric pain and the workup has been unclear for now. The patient was seen in the emergency department for severe sharp stabbing pain in the mid epigastric area and she also had multiple episodes of emesis up to 10. CT angios was done of the thoracic aorta considering dissection. The CAT scan was negative however the patient was again noted to have stable mediastinal lymphadenopathy which has been essentially unchanged. For that reason a pulmonary consultation was requested. Note that as part of her GI workup, the patient underwent a EGD today and the findings were essentially nonspecific consistent with duodenitis and gastritis and biopsies were taken. Her abdomen is soft however she claims that there is some limited tenderness. As part of her workup, ultrasound the gallbladder was also done that showed gallstones without evidence of any acute cholecystitis. There was evidence of some limited abdominal ascites and this was not abnormal for paracentesis. No fever. No chills no weight loss. No constitutional symptoms. no itching. no previous history of sarcoidosis. no previous active lymphoma. no previous history of any granulomatous infections. No leukocytosis. LFTs are within normal limits.. No skin rashes. No nephrolithiasis. No history of cough sputum production chest tightness or wheezing. She has remote history of smoking, she is currently a nonsmoker. Review of Systems Constitutional: Denies fever, chills, sweats, weight gain, or loss. HEENT: Negative for migraines, blurred vision or loss, earaches, drainage, tinnitus, oral mucosal lesions, dysphagia, or odynophagia. CARDIAC: Negative for chest pain, arrhythmias, or palpitation. RESPIRATORY: Admitted with shortness of breath, denies hemoptysis, cough, or sputum production. GI: See HPI for pertinent findings. : Negative for hematuria, urgency, frequency, polyuria, or dysuria. GYNc: Denies possibility of . Negative vaginal discharge. MUSCULOSKELETAL: Negative for muscle aches, swelling, arthritis, and arthralgias. NEUROLOGIC: Negative for stroke or TIA. ENDOCRINE: Negative for thyroid problems. SKIN: Negative for rash or itching. PSYCHIATRIC: Negative history for depression and anxiety Past Medical History Past Medical History: Hypertension Additional Past Medical History / Comment(s): Obesity, hypertension History of Any Multi-Drug Resistant Organisms: None Reported Past Surgical History: Appendectomy, Back Surgery, Tonsillectomy, Tubal Ligation Additional Past Surgical History / Comment(s): 2016 lumbar fusion Past Anesthesia/Blood Transfusion Reactions: Postoperative Nausea & Vomiting ( PONV) Past Psychological History: No Psychological Hx Reported Additional Psychological History / Comment(s): Pt resides with family. She is independent. Smoking Status: Former smoker Past Alcohol Use History: None Reported Past Drug Use History: None Reported - Past Family History Mother Family Medical History: No Reported History Additional Family Medical History / Comment(s): Mother is healthy and is in her 70's Father Family Medical History: No Reported History Additional Family Medical History / Comment(s): Father is healthy. He is in his 70s Medications and Allergies Home Medications Medication Instructions Recorded Confirmed Type Lisinopril [Zestril] 10 mg PO DAILY 08/28/17 07/08/18 History Calcium Carbonate [Tums] 1,000 mg PO TID 07/08/18 07/08/18 History Norethindrone-E.estradiol-Iron 1 tab PO DAILY 07/08/18 07/08/18 History [Junel Fe 1.5 mg-30 Mcg Tablet] Allergies Allergy/AdvReac Type Severity Reaction Status Date / Time latex Allergy Rash/Hives Verified 07/09/18 02:04 Physical Exam Vitals: Vital Signs Temp Pulse Resp BP Pulse Ox 07/10/18 12:53 97.6 F 70 16 137/81 95 07/10/18 08:34 97.9 F 78 16 132/78 97 07/10/18 00:03 98.1 F 79 18 122/76 97 07/09/18 20:09 98.1 F 81 16 154/81 95 07/09/18 15:51 98.1 F 82 20 125/76 96 Intake and Output 07/10/18 07/10/18 07/10/18 06:59 14:59 22:59 Intake Total 100 Balance 100 Intake: IV 100 Other: # Voids 1 Weight 105.4 kg The patient appeared well nourished and normally developed. Vital signs as documented. Head exam is unremarkable. No scleral icterus or corneal arcus noted. Neck is without jugular venous distension, thyromegaly, or carotid bruits. Carotid upstrokes are brisk bilaterally. Lungs are clear to auscultation and percussion. Cardiac exam reveals the PMI to be normally sized and situated. Rhythm is regular. First and second heart sounds normal. No murmurs, rubs or gallops. Abdominal exam reveals normal bowel sounds, no masses , no organomegaly and no aortic enlargement. Extremities are nonedematous and both femoral and pedal pulses are normal. Neurologically the patient is awake and alert and is no focal neurological deficit. Psychiatric appropriate mood and affect.Examination of the skin revealed no evidence of significant rashes, suspicious appearing nevi or other concerning lesions. Results - Laboratory Findings CBC and BMP: 07/10/18 06:14 07/10/18 06:14 PT/INR, D-dimer PT 9.7 sec (9.0-12.0) 07/08/18 17:40 INR 1.0 (<1.2) 07/08/18 17:40 D-Dimer 20.56 mg/L FEU (<0.60) H 07/08/18 17:40 Abnormal lab findings: Abnormal Labs 07/08/18 07/08/18 07/08/18 17:40 17:40 17:40 WBC 16.4 H RBC 5.53 H Hgb 16.4 H Hct 50.0 H Neutrophils # 13.2 H D-Dimer 20.56 H Chloride 111 H Carbon Dioxide 17 L Glucose 120 H Calcium 10.3 H Alkaline Phosphatase Total Protein Albumin Ur Specific [place] Urine Protein Ur Leukocyte Esterase Ur Squamous Epith Cells Urine Mucus 07/09/18 07/09/18 07/10/18 05:25 06:40 06:14 WBC RBC Hgb Hct Neutrophils # D-Dimer Chloride 111 H 108 H Carbon Dioxide Glucose 101 H Calcium Alkaline Phosphatase 33 L Total Protein 5.8 L Albumin 3.0 L Ur Specific [place] >1.050 H Urine Protein Trace H Ur Leukocyte Esterase Small H Ur Squamous Epith Cells 10 H Urine Mucus Occasional H - Diagnostic Findings CT scan - chest: image reviewed Assessment and Plan Plan: Assessment 1 mediastinal lymphadenopathy that needs to be further worked up. Consider sarcoidosis. Consider low-grade lymphoma. The CAT scan of the chest shows a conglomeration of adenopathy in the right paratracheal region measuring 6.6 x 5.6 cm in size in addition to an enlarged subcarinal lymph node, in addition to some scattered mediastinal lymphadenopathy. 2 epigastric pain, recovered 3 hypertension 4 obesity Plan Recommend outpatient PET scan. May need a bronchoscopy following the PET scan findings with transbronchial needle aspirate of the right paratracheal lymph node for Histologic diagnosis. The patient can be discharged from the pulmonary standpoint and can be followed up on outpatient basis. She has only seen Dr. Rubalcava from oncology. EGD was noted.
[2018-07-10 16:11] VITALS: RESP 18
[2018-07-10 17:49] LABS: Protein, Total 5.4 g/dL (6.2-8.2); Rheumatoid Factor <4 IU/mL (0-15)
[2018-07-11] MEDS ORDERED: ACETAMINOPHEN TAB 325 MG TAB PO PRN (05:12)
[2018-07-11] MEDS: SODIUM CHLORIDE 0.9% 1,000 ML IV SCH (05:18)
[2018-07-11 07:38] VITALS: BP 144/88; PULSE 71; TEMP 97.9
[2018-07-11] MEDS: LISINOPRIL 10 MG TAB PO SCH (07:59)
[2018-07-11] MEDS: PANTOPRAZOLE 40 MG/10 ML VIAL IV SCH (07:59)
--- NOTE | 2018-07-11 10:39 | P.PN ---
Subjective Progress Note Date: 07/11/18 Principal diagnosis: Mediastinal lymphadenopathy, epigastric pain recovered I was consulted to see this 47-year-old female patient for mediastinal lymphadenopathy. The patient has extensive mediastinal lymphadenopathy that was originally noted on a CAT scan of the chest that was done in August 2017. No follow-up was done back then. The patient came in yesterday because of epigastric pain and the workup has been unclear for now. The patient was seen in the emergency department for severe sharp stabbing pain in the mid epigastric area and she also had multiple episodes of emesis up to 10. CT angios was done of the thoracic aorta considering dissection. The CAT scan was negative however the patient was again noted to have stable mediastinal lymphadenopathy which has been essentially unchanged. For that reason a pulmonary consultation was requested. Note that as part of her GI workup, the patient underwent a EGD today and the findings were essentially nonspecific consistent with duodenitis and gastritis and biopsies were taken. Her abdomen is soft however she claims that there is some limited tenderness. As part of her workup, ultrasound the gallbladder was also done that showed gallstones without evidence of any acute cholecystitis. There was evidence of some limited abdominal ascites and this was not abnormal for paracentesis. No fever. No chills no weight loss. No constitutional symptoms. no itching. no previous history of sarcoidosis. no previous active lymphoma. no previous history of any granulomatous infections. No leukocytosis. LFTs are within normal limits.. No skin rashes. No nephrolithiasis. No history of cough sputum production chest tightness or wheezing. She has remote history of smoking, she is currently a nonsmoker. On 07/11/2018 patient seen in follow-up in pediatric unit. She is calm and comfortable, in no acute distress, lung sounds are clear to auscultation, room air pulse ox 96%. Vital signs are stable, no fever or chills. She is status post EGD which showed no obvious esophagitis, small hiatal hernia, mild antral gastritis. Biopsies were obtained and are pending at this time. Further nausea or vomiting epigastric discomfort. Labs have been reviewed, and are unremarkable. Rheumatoid factor was less than 4, Tin level has been ordered, and is pending at this time. From pulmonary perspective patient is stable for discharge home today, with outpatient follow-up. She will need outpatient PET scan Objective - Vital Signs Vital signs: Vital Signs Temp 97.9 F 07/11/18 07:37 Pulse 71 07/11/18 07:37 Resp 18 07/11/18 07:37 BP 144/88 07/11/18 07:37 Pulse Ox 96 07/11/18 07:37 Intake & Output 07/10/18 07/11/18 07/11/18 18:59 06:59 18:59 Intake Total 100 1200 Balance 100 1200 Weight 105.4 kg 105 kg Intake: IV 100 Oral 1200 Other: Voiding Method Toilet # Voids 2 2 1 - Exam The patient appeared well nourished and normally developed. Vital signs as documented. Head exam is unremarkable. No scleral icterus or corneal arcus noted. Neck is without jugular venous distension, thyromegaly, or carotid bruits. Carotid upstrokes are brisk bilaterally. Lungs are clear to auscultation and percussion. Cardiac exam reveals the PMI to be normally sized and situated. Rhythm is regular. First and second heart sounds normal. No murmurs, rubs or gallops. Abdominal exam reveals normal bowel sounds, no masses , no organomegaly and no aortic enlargement. Extremities are nonedematous and both femoral and pedal pulses are normal. Neurologically the patient is awake and alert and is no focal neurological deficit. Psychiatric appropriate mood and affect.Examination of the skin revealed no evidence of significant rashes, suspicious appearing nevi or other concerning lesions. - Labs CBC & Chem 7: 07/10/18 06:14 07/10/18 06:14 Labs: Abnormal Lab Results - Last 24 Hours (Table) 07/10/18 Range/Units 06:14 Total Protein (PEP) 5.4 L (6.2-8.2) g/dL Assessment and Plan Plan: 1 mediastinal lymphadenopathy that needs to be further worked up. Consider sarcoidosis. Consider low-grade lymphoma. The CAT scan of the chest shows a conglomeration of adenopathy in the right paratracheal region measuring 6.6 x 5.6 cm in size in addition to an enlarged subcarinal lymph node, in addition to some scattered mediastinal lymphadenopathy. 2 epigastric pain, recovered 3 hypertension 4 obesity Plan: Patient is stable pulmonary perspective, stable for discharge home today. No acute events overnight, vital signs are stable. No further nausea, vomiting or epigastric discomfort. She will need follow-up with Dr. Jurado in 7-10 days, she'll need outpatient PET scan. I performed a history & physical examination of the patient and discussed their management with my nurse practitioner, Swathi Chan. I reviewed the nurse practitioner's note and agree with the documented findings and plan of care. Lung sounds are positive clear brreath sounds. The findings and the impression was discussed with the patient. I attest to the documentation by the nurse practitioner. Time with Patient: Less than 30
[2018-07-12 12:29] LABS: Albumin 2.91 g/dL (3.80-4.90); Gamma Globulin 0.75 g/dL (0.70-1.50)
--- NOTE | 2018-07-25 18:09 | P.DS ---
Providers Date of admission: 07/08/18 19:48 Expected date of discharge: 07/11/18 Attending physician: Simran Connell Consults: 07/08/18 19:48 Consult Physician Urgent Consulting Provider: Ruel Rubalcava Consult Reason/Comments: Mediastinal adenopathy and ascites Do you want consulting provider notified?: Yes Consult Physician Urgent Consulting Provider: Jacob Haddad Consult Reason/Comments: ascities Do you want consulting provider notified?: Yes 07/09/18 19:37 Consult Physician Routine Consulting Provider: Calixto Jurado Consult Reason/Comments: Mediastinal adenopathy. Biopsy Do you want consulting provider notified?: Yes Primary care physician: Beti Teixeira [facility] Course: Nausea/vomiting Ascites Mediastinotomy lymphadenopathy 47 year old female patient of Dr. Teixeira with a past medical history of appendectomy August 2017, obesity, hypertension, tubal ligation, and lumbar fusion. Patient has been in her normal state of health until yesterday which she developed severe epigastric pain with intractable nausea vomiting shortness of breath without hemoptysis, hematemesis hematochezia or melena. Denies fever chills rigors or unusual weight loss. No history of these types of symptoms. No history of peptic ulcer disease. No history of EGD or colonoscopy. Admission white count 16.4. Hemoglobin 16.4. MCV 90. Platelet 4:30. INR 1.0. D-dimer 20.5. BUN 11. Creatinine 0.7. Pancreatic and liver enzymes within normal limits. Serum albumin 3.8. Hepatitis screen nonreactive. Abdominal x-rays nonacute abdomen. CT angio massive mediastinal adenopathy increased abdominal ascites compared to old exam no evidence of pulmonary embolism. Celiac SMA appeared normal. Moderate ascites fluid in the abdomen. No discrete liver mass. Gallbladder spleen and pancreas appeared normal. No mesenteric edema or adenopathy. Gallbladder ultrasound cholelithiasis CBD within normal limits. Pancreas within normal limits. Visualized liver heterogeneously hypoechoic suggesting diffuse fatty infiltration. No pericholecystic fluid or abnormal gallbladder wall thickening. 6 cm simple appearing right kidney cyst. Denies hematuria or unusual vaginal discharge. Patient has not seen a [facility] for several years but has a history of heavy menstruation. She has her yearly Paps performed by her primary care physician. She takes control on a monthly basis to suppress her periods. 1. Intractable nausea/vomiting and abdominal pain - Underlying peptic ulcer disease/neoplasm cannot be excluded at this time - GI is on board and recommending EGD for evaluation of epigastric pain, nausea and vomiting and to rule out peptic ulcer disease versus neoplasm; in case of negative EGD recommendations are to proceed with full serologic workup for chronic liver disease - Continue with Protonix 40 mg daily until workup is complete 2. Ascites - Etiology of ascites is unclear at this time; no obvious radiographic evidence of cirrhosis - GI recommendations as discussed above - Diagnostic paracentesis with cytology is recommended; interventional radiology is consulted and reviewing imaging to see been the procedure can be performed earliest 3. Mediastinal lymphadenopathy - Hematology/oncology consult is done and recommendations are pending 4. Leukocytosis; possibly reactive - There are no signs of infectious etiology - We will monitor CBC closely and proceed with septic workup if white blood count remains elevated 5. Hypertension; fairly controlled on lisinopril 10 mg daily 6. DVT prophylaxis; SCDs only in the room of possible procedure for further diagnosis CODE STATUS; full code Patient Condition at Discharge: Good Plan - Discharge Summary Discharge Rx Participant: No New Discharge Prescriptions: Continue Lisinopril [Zestril] 10 mg PO DAILY Calcium Carbonate [Tums] 1,000 mg PO TID Norethindrone-E.estradiol-Iron [Junel Fe 1.5 mg-30 Mcg Tablet] 1 tab PO DAILY Discharge Medication List Lisinopril [Zestril] 10 mg PO DAILY 08/28/17 [History] Calcium Carbonate [Tums] 1,000 mg PO TID 07/08/18 [History] Norethindrone-E.estradiol-Iron [Junel Fe 1.5 mg-30 Mcg Tablet] 1 tab PO DAILY [History] Follow up Appointment(s)/Referral(s): Reul Rubalcava MD [STAFF PHYSICIAN] - 1 Week Beti Teixeira MD [Primary Care Provider] - 1-2 days Calixto Jurado MD [STAFF PHYSICIAN] - 1 Week Patient Instructions/Handouts: Hiatal Hernia (DC), Gastritis (DC), Positron Emission Tomography of the Chest (DC), Lymph Node Biopsy (DC) Activity/Diet/Wound Care/Special Instructions: Continue diet as tolerated starting with bland and slowing increasing. Fluids are always encouraged. Follow up with physicians as directed to go over send out labs done in hospital. Call physician with any questions comments concerns worsening returning symptoms, fever 101.1 or higher, pain not controlled by Tylenol and Motrin, not tolerating diet, not tolerating fluids. Discharge Disposition: HOME SELF-CARE
== END 2018-07-11 10:58 | disposition home or self-care (01) | DRG 392 ==
LOC: EC 17:04 → 6PED 19:48
PROVIDERS: ADMIT Internal Medicine; ATTEND Internal Medicine
PROC: 0DB78ZX Excision of Stomach, Pylorus, Via Natural or Artificial Opening Endoscopic, Diagnostic (ICD-10-PCS; 2018-07-10)
PROC: 0DB58ZX Excision of Esophagus, Via Natural or Artificial Opening Endoscopic, Diagnostic (ICD-10-PCS; 2018-07-10)
PROC: 0DB98ZX Excision of Duodenum, Via Natural or Artificial Opening Endoscopic, Diagnostic (ICD-10-PCS; principal; 2018-07-10 07:38)
DX: R10.13 Epigastric pain (principal); R18.8 Other ascites; I45.2 Bifascicular block; N28.1 Cyst of kidney, acquired; R11.2 Nausea with vomiting, unspecified; D72.829 Elevated white blood cell count, unspecified; E66.9 Obesity, unspecified; I10 Essential (primary) hypertension; K29.60 Other gastritis without bleeding; K29.80 Duodenitis without bleeding; K44.9 Diaphragmatic hernia without obstruction or gangrene; K80.20 Calculus of gallbladder without cholecystitis without obstruction; R59.0 Localized enlarged lymph nodes; Z79.899 Other long term (current) drug therapy; Z87.891 Personal history of nicotine dependence; Z98.1 Arthrodesis status; Z91.040 Latex allergy status; Z98.51 Tubal ligation status; Z68.36 Body mass index [BMI] 36.0-36.9, adult; Z90.49 Acquired absence of other specified parts of digestive tract
CPT/HCPCS: 36415; 43239; 71046; 71275; 74019; 74174; 76705; 80048; 80053; 80074; 81001; 81025; 82150; 82164; 82550; 82553; 83615; 83690; 83883; 84165; 84484; 85025; 85379; 85610; 85652; 85730; 86038; 86334; 86431; 88305; 93005; 96361; 96374; 96375; 99285

== ENCOUNTER → 2018-08-07 | Outpatient (CLI) | payer OTHER ==
--- NOTE | 2018-08-09 08:53 | PE ---
EXAMINATION TYPE: PET CT fusion skull to thigh DATE OF EXAM: 08/07/2018 COMPARISON: CT aorta July 08, 2018 and older CTs. HISTORY: Thoracic lymphadenopathy, recent abnormal CT. TECHNIQUE: Following the intravenous administration of 10.94 mCi of F-18 FDG, whole body images are performed from the skull base to the midthigh. Images are reviewed on the computer in the coronal, a xial, and sagittal planes. Reconstructed rotating images are created on independent workstation and reviewed on the computer. A noncontrast CT is performed in conjunction with the PET scan. SCAN: Initial Scan FINDINGS: SKULL BASE AND NECK: No suspicious hypermetabolic uptake is seen. CHEST, MEDIASTINUM, AND HILAR REGION: There is persistent abnormal thoracic adenopathy with large nathaniel ewhat confluent lymph nodes in the anterior superior mediastinum. There is abnormal adenopathy in the prevascular space, right paratracheal region, subcarinal level, and right hilar region. For referenc e prevascular lymph node measures 2.2 x 1.7 cm on axial image 77, there is mild hypermetabolic uptake , max SUV is 3.46. Most prominent hypermetabolic uptake is confluent right paratracheal lymph nodes a xial image 70, max SUV at this level is 12.14. No suspicious axillary adenopathy is seen. ABDOMEN AND PELVIS: No suspicious adenopathy or hypermetabolic uptake in the abdomen or pelvis is see n. OSSEOUS STRUCTURES: No suspicious hypermetabolic uptake is seen. OTHER CT: Thoracic aorta measures up to 3.8 cm diameter axial image 83. There is simple appearing 5.6 cm cyst laterally in the right kidney axial image 153. There is small fat-containing umbilical hernia. There is anteverted uterus which is somewhat prominent, there is prominence of the lower uterine segm ent/cervix near axial image 218, consider underlying fibroids. Correlate clinically. Cervical mass is not entirely excluded. There is surgical change in the lower lumbar spine. Interval resolution of ascites surrounding the li mackenzie and spleen noted. IMPRESSION: Suspicious thoracic adenopathy persists back through September 23, 2017 CT. Neoplasm such a s lymphoma needs to BE considered. Correlate clinically. Consider cardiothoracic surgical referral or mediastinoscopy for histologic sampling.
== END ==
LOC: RADPETMAIN 14:09
PROVIDERS: ATTEND Internal Medicine Critical Care Medicine
DX: D38.3 Neoplasm of uncertain behavior of mediastinum (principal)
CPT/HCPCS: 78815; A9552

== ENCOUNTER → 2018-08-19 | Outpatient (CLI) | payer OTHER ==
[2018-08-19 12:10] LABS: Basophils % (A) 0 %; Eosinophils # (A) 0.3 k/uL (0-0.7); Eosinophils % (A) 3 %; HCT 45.1 % (34.0-46.0); HGB 14.2 gm/dL (11.4-16.0); Lymphocytes # (A) 1.4 k/uL (1.0-4.8); Lymphocytes % (A) 15 %; MCH 28.8 pg (25.0-35.0); MCHC 31.5 g/dL (31.0-37.0); MCV 91.4 fL (80.0-100.0); Mean Platelet Volume 6.5; Monocytes # (A) 0.5 k/uL (0-1.0); Monocytes % (A) 5 %; Neutrophils # (A) 7.3 k/uL (1.3-7.7); Neutrophils % (A) 75 %; Platelet Count 421 k/uL (150-450); RBC 4.94 m/uL (3.80-5.40); RDW 14.2 % (11.5-15.5); WBC 9.7 k/uL (3.8-10.6)
[2018-08-19 12:16] LABS: INR 0.9 (<1.2); Partial Thromboplastin Time 23.6 sec (22.0-30.0); Prothrombin Time 9.5 sec (9.0-12.0)
[2018-08-19 12:22] LABS: Anion Gap 10 mmol/L; Blood Urea Nitrogen 13 mg/dL (7-17); Carbon Dioxide 24 mmol/L (22-30); Chloride 106 mmol/L (98-107); Glucose 117 mg/dL (74-99); Sodium 140 mmol/L (137-145)
== END | disposition home or self-care (01) ==
LOC: LABPAT 11:11
PROVIDERS: ATTEND Thoracic Surgery (Cardiothoracic Vascular Surgery)
DX: Z01.812 Encounter for preprocedural laboratory examination (principal); E86.0 Dehydration; N28.9 Disorder of kidney and ureter, unspecified
CPT/HCPCS: 36415; 80051; 82565; 82947; 83735; 84520; 85025; 85610; 85730

== ENCOUNTER 2018-08-23 06:19 | Day surgery (SDC) | payer OTHER ==
[2018-08-20 10:36] VITALS: BMI 36.6
[~2018-08-23 06:19] MED LIST: DEXAMETHASONE SOD PHOSPHATE 10 MG/ML 1 ML VIAL IV ONE; LACTATED RINGERS 1,000 ML IV SCH; LIDOCAINE 1% 20 ML VIAL (10MG/ML) FOR IV START INTRADERMA PRN; MIDAZOLAM (PF) 2 MG/2 ML VIAL IV PRN; ceFAZolin IN SWFI 2 GM/20 ML SYRINGE IVP ONE; fentaNYL (PF) 50 MCG/ML 2 ML AMP IV PRN; fentaNYL (PF) 50 MCG/ML 20 ML VIAL IVP PRN
[2018-08-23] MEDS ORDERED: DEXAMETHASONE SOD PHOSPHATE 10 MG/ML 1 ML VIAL IV ONE (06:40)
[2018-08-23] MEDS: ONDANSETRON 4 MG/2 ML VIAL IVP ONE ×2 (06:40→09:21)
[2018-08-23] MEDS ORDERED: SUCCINYLCHOLINE CHLORIDE 100 MG/5 ML SYR IV ONE (06:56)
[2018-08-23] MEDS ORDERED: ROCURONIUM BROMIDE 10 MG/ML 10 ML VIAL IV ONE (06:56)
[2018-08-23] MEDS ORDERED: GLYCOPYRROLATE 0.2 MG/ML 2 ML VIAL ONE (06:56)
[2018-08-23] MEDS ORDERED: NEOSTIGMINE 1 MG/ML 10 ML VIAL ONE (06:56)
[2018-08-23] MEDS ORDERED: LIDOCAINE 1% INJ 10MG/ML (20 ML MDV) ONE (06:56)
[2018-08-23] MEDS ORDERED: fentaNYL (PF) 50 MCG/ML 2 ML AMP ONE (06:56)
[2018-08-23] MEDS ORDERED: PROPOFOL 10 MG/ML 20 ML VIAL IV ONE (06:56)
[2018-08-23] MEDS ORDERED: MIDAZOLAM 2 MG/2 ML VIAL ONE (06:56)
[2018-08-23] MEDS ORDERED: HYDROmorphone (PF) 1 MG/ML ONE (06:56)
[2018-08-23] MEDS ORDERED: LACTATED RINGERS 1,000 ML IV ONE (07:47)
--- NOTE | 2018-08-23 08:16 | P.OP ---
Date of Procedure: 08/23/18 Preoperative Diagnosis: mediastinal lympadenopathy Postoperative Diagnosis: Same Procedure(s) Performed: Mediastinoscopy with biopsy right paratracheal lymph nodes Anesthesia: GETA Surgeon: Martin Han Estimated Blood Loss (ml): 5 IV fluids (ml): 1,000 Urine output (ml): 0 Pathology: other (Right paratracheal lymph nodes sent for culture and pathology including flow cytometry) Condition: stable Disposition: PACU Indications for Procedure: 48-year-old female with a one-year history of mediastinal adenopathy which is been increasing on serial studies Operative Findings: Markedly enlarged, firm, rubbery mediastinal lymph nodes Description of Procedure: The patient was brought to the operating room, placed supine on the operating table, anesthetized and intubated. A roll was placed been beneath the shoulders to extend the neck. The anterior neck and chest were sterilely prepped and draped. One-inch transverse incision was made across the base of the neck in the midline. This was carried down through skin and subcutaneous tissue to the strap muscles. Dissection was continued vertically between the strap muscles to the pretracheal plane. The thymic isthmus was encircled and ligated with 2-0 silk and divided. Dissection was carried along the pretracheal plane into the mediastinum with a finger. The mediastinoscope was introduced. Right paratracheal lymph nodes were dissected out. A smaller node was resected and sent for culture. A larger node was resected and sent fresh for pathology and flow cytometry. Good hemostasis was noted. The mediastinoscope was removed. The strap muscles were reapproximated with figure 8 3-0 Vicryl. Subcutaneous and subcuticular layers were closed with layers of 3 -0 Vicryl suture. Skin glue dressing and a light gauze dressing were applied. Patient was awakened, extubated, transferred to recovery in stable condition.
[2018-08-23 08:17] VITALS: TEMP 97
[2018-08-23 08:23] VITALS: RESP 16
[2018-08-23] MEDS ORDERED: KETOROLAC 30 MG/ML 1 ML VIAL IVP ONE (09:29)
[2018-08-23] MEDS ORDERED: SCOPOLAMINE 1.5MG/72HR PATCH TRANSDERM ONE (10:01)
[2018-08-23 11:00] VITALS: BP 137/66; PULSE 83
== END 2018-08-23 11:11 | disposition home or self-care (01) ==
LOC: OR 06:19
PROVIDERS: ATTEND Thoracic Surgery (Cardiothoracic Vascular Surgery)
DX: I88.8 Other nonspecific lymphadenitis (principal); I10 Essential (primary) hypertension; K21.9 Gastro-esophageal reflux disease without esophagitis; E66.9 Obesity, unspecified; Z79.899 Other long term (current) drug therapy; Z68.36 Body mass index [BMI] 36.0-36.9, adult
CPT/HCPCS: 39402; 88312; 88307; 87070; 87205; 87116; 87102; 87206; J2250 ×2; J1100; J2710; J2405; J2001; J3010; J1885; J1170; J0330; J2704; J0690

== ENCOUNTER 2018-09-02 00:19 | Inpatient (IN) | payer OTHER ==
--- NOTE | 2018-09-02 01:14 | XR ---
EXAMINATION TYPE: XR chest 2V DATE OF EXAM: 09/02/2018 COMPARISON: 08/12/2018 HISTORY: Chest pain TECHNIQUE: Frontal and lateral views of the chest are obtained. FINDINGS: There is no heart failure nor confluent pneumonic infiltrate. There is widening of the med iastinum in the right paratracheal region. There is no pleural effusion. Bony thorax is intact. IMPRESSION: Mediastinal adenopathy unchanged. Normal heart. No heart failure.
[2018-09-02] MEDS ORDERED: ONDANSETRON 4 MG/2 ML VIAL IVP STA ×2 (01:18→02:49)
[2018-09-02] MEDS ORDERED: MAG HYDROX/AL HYDROX/SIMETH 30 ML, HYOSCYAMINE ELIXIR 10 ML, CIMETIDINE HCL 300 MG, LID... PO STA ×4 (01:18)
[2018-09-02 01:19] LABS: Basophils % (A) 0 %; Eosinophils # (A) 0.4 k/uL (0-0.7); Eosinophils % (A) 3 %; HCT 42.3 % (34.0-46.0); HGB 13.7 gm/dL (11.4-16.0); Lymphocytes # (A) 1.9 k/uL (1.0-4.8); Lymphocytes % (A) 15 %; MCH 29.4 pg (25.0-35.0); MCHC 32.4 g/dL (31.0-37.0); MCV 90.9 fL (80.0-100.0); Mean Platelet Volume 6.6; Monocytes # (A) 0.6 k/uL (0-1.0); Monocytes % (A) 5 %; Neutrophils # (A) 9.3 k/uL (1.3-7.7); Neutrophils % (A) 75 %; Platelet Count 401 k/uL (150-450); RBC 4.66 m/uL (3.80-5.40); RDW 14.4 % (11.5-15.5); WBC 12.4 k/uL (3.8-10.6)
[2018-09-02 01:41] LABS: INR 0.9 (<1.2); Prothrombin Time 9.4 sec (9.0-12.0)
[2018-09-02 01:46] LABS: ALT 34 U/L (9-52); AST 26 U/L (14-36); Albumin 4.2 g/dL (3.5-5.0); Alkaline Phosphatase 50 U/L (38-126); Anion Gap 11 mmol/L; Blood Urea Nitrogen 13 mg/dL (7-17); Calcium 9.3 mg/dL (8.4-10.2); Carbon Dioxide 20 mmol/L (22-30); Chloride 105 mmol/L (98-107); Glucose 143 mg/dL (74-99); Magnesium 1.9 mg/dL (1.6-2.3); Potassium 4.4 mmol/L (3.5-5.1); Sodium 136 mmol/L (137-145); Total Bilirubin 0.4 mg/dL (0.2-1.3); Total Protein 7.2 g/dL (6.3-8.2)
[2018-09-02 01:48] LABS: Creatine Kinase 97 U/L (30-135); Partial Thromboplastin Time 21.7 sec (22.0-30.0)
[2018-09-02 02:01] LABS: Creatine Kinase MB 2.2 ng/mL (0.0-2.4); Troponin I <0.012 ng/mL (0.000-0.034)
[2018-09-02 02:04] LABS: D-Dimer 2.81 mg/L FEU (<0.60)
[2018-09-02] MEDS ORDERED: HYDROmorphone 1 MG/ML 1 ML SYRINGE IVP STA ×2 (02:09→04:37)
--- NOTE | 2018-09-02 02:21 | CT ---
EXAMINATION TYPE: CT abdomen pelvis wo con DATE OF EXAM: 09/02/2018 COMPARISON: 09/23/2017 HISTORY: Patient presents for epigrastric pain. Prior on pacs. CT DLP: 1144.4 mGycm Automated exposure control for dose reduction was used. TECHNIQUE: Helical acquisition of images was performed from the lung bases through the pelvis. FINDINGS: There is minimal atelectasis at the lung bases. There is no pleural effusion. There is no pericardial effusion. Liver spleen pancreas gallbladder appear normal. Bile ducts are not dilated. There is no adrenal mass . The kidneys have normal size. There is no hydronephrosis. There is 6.3 cm cortical cyst lateral rig ht kidney. There is no retroperitoneal adenopathy. Bladder distends smoothly. Uterus is anteverted. T here is posterior fusion surgery at L4-5. Vertebra have normal alignment. There is no inguinal hernia . There are clips apparently from appendectomy. I see no intestinal wall thickening. There is no mese nteric edema. There is no sign of free air. There is no evidence of a bowel obstruction. IMPRESSION: NO ACUTE ABNORMALITY WITHIN THE ABDOMEN AND PELVIS. THERE IS CLEARING OF THE MESENTERIC EDEMA AND FAT STRANDING IN THE LOWER ABDOMEN COMPARED TO OLD EXAM. THERE IS CLEARING OF THE FREE FLUID IN THE PELV IS COMPARED TO OLD EXAM. RIGHT RENAL CORTICAL CYST INCREASED SLIGHTLY COMPARED TO OLD EXAM.
[2018-09-02] MEDS ORDERED: PROMETHAZINE INJ 25 MG in SODIUM CHLORIDE 0.9% 50 ML IVPB ONE (02:45)
--- NOTE | 2018-09-02 04:32 | CT ---
EXAMINATION TYPE: CT chest angio for PE DATE OF EXAM: 09/02/2018 COMPARISON: None HISTORY: elevated d-dimer CT DLP: 602.9 mGycm Automated exposure control for dose reduction was used. CONTRAST: CT Chest for pulmonary embolism performed with with IV Contrast, patient injected with 75mL mL of Iso katharina 370. FINDINGS: There is numerous enlarged mediastinal lymph nodes. These measure up to 3 cm. There is also subcarina l adenopathy that measures 3.3 cm. There are a few bilateral bronchial lymph nodes up to 1.5 cm. Ther e is normal contrast opacification of the pulmonary arteries. I see no filling defect. There is no ev idence of thoracic aortic aneurysm or dissection. Ascending aorta measures up to 3.9 cm. There is no pericardial effusion. Heart size is normal. The bony thorax is intact. IMPRESSION: No evidence of pulmonary embolism. Extensive bulky mediastinal adenopathy unchanged.
[2018-09-02] MEDS ORDERED: NALOXONE 0.4 MG/ML 1 ML VIAL IV PRN (05:26)
[2018-09-02] MEDS ORDERED: ONDANSETRON 4 MG/2 ML VIAL IVP PRN (05:26)
--- NOTE | 2018-09-02 05:26 | ED ---
Abdominal Pain HPI - General Chief Complaint: Chest Pain Stated Complaint: CHEST PAIN Time Seen by Provider: 09/02/18 00:41 Source: patient Mode of arrival: wheelchair Limitations: no limitations - History of Present Illness Initial Comments: This patient is a 48-year-old woman with history of recent lymph node biopsy showing probable sarcoidosis, who presents to have evaluation for epigastric pain. The patient states that it had started number of hours ago while at rest. She describes it as a stabbing sharp pain. It does seem to go towards her back. The patient states it is constant and severe. She has not noted worsening or relieving factors. She has also been having a number of episodes of vomiting and has nausea. She has not noted any blood or coffee-ground material. Patient denies other symptoms, including no change in bowel movements , any change in urination, fever or chills. No chest pain. MD Complaint: abdominal pain -: hour(s) Location: epigastric Radiation: back Migration to: no migration Severity: severe Quality: sharp Consistency: constant Improves With: nothing Worsens With: nothing Associated Symptoms: nausea, vomiting - Related Data Home Medications Medication Instructions Recorded Confirmed Lisinopril [Zestril] 10 mg PO DAILY 08/28/17 08/23/18 Norethindrone-E.estradiol-Iron 1 tab PO HS 07/08/18 08/23/18 [Junel Fe 1.5 mg-30 Mcg Tablet] Omeprazole [PriLOSEC] 20 mg PO AC-BRKFST 08/20/18 08/23/18 Allergies Allergy/AdvReac Type Severity Reaction Status Date / Time adhesive tape Allergy BLISTERS Verified 08/23/18 06:25 AND RED SKIN FROM TAPE Review of Systems ROS Statement: Those systems with pertinent positive or pertinent negative responses have been documented in the HPI. ROS Other: All systems not noted in ROS Statement are negative. Constitutional: Denies: fever, chills Respiratory: Denies: cough, dyspnea Cardiovascular: Denies: chest pain, palpitations, edema, syncope Gastrointestinal: Reports: as per HPI, abdominal pain, nausea, vomiting. Denies : diarrhea, constipation, hematemesis, melena, hematochezia Genitourinary: Denies: dysuria, hematuria Musculoskeletal: Denies: back pain Skin: Denies: rash Neurological: Denies: headache, weakness Past Medical History Past Medical History: Cancer, Hypertension Additional Past Medical History / Comment(s): SKIN CANCER, SHORTNESS OF BREATH History of Any Multi-Drug Resistant Organisms: None Reported Past Surgical History: Appendectomy, Back Surgery, Tonsillectomy, Tubal Ligation Additional Past Surgical History / Comment(s): lumbar fusion Past Anesthesia/Blood Transfusion Reactions: Postoperative Nausea & Vomiting ( PONV) Past Psychological History: No Psychological Hx Reported Smoking Status: Former smoker - Past Family History Mother Family Medical History: No Reported History, CVA/TIA Additional Family Medical History / Comment(s): Mother is healthy and is in her 70's Father Family Medical History: No Reported History Additional Family Medical History / Comment(s): Father is healthy. He is in his 70s General Exam Limitations: no limitations General appearance: alert, in no apparent distress, obese Head exam: Present: atraumatic, normocephalic Eye exam: Present: normal appearance. Absent: scleral icterus, conjunctival injection ENT exam: Present: normal oropharynx Neck exam: Present: normal inspection Respiratory exam: Present: normal lung sounds bilaterally. Absent: respiratory distress, wheezes, rales, rhonchi, stridor Cardiovascular Exam: Present: regular rate, normal rhythm, normal heart sounds. Absent: systolic murmur, diastolic murmur, rubs, gallop GI/Abdominal exam: Present: soft, tenderness (There is tenderness all along the costal margin slightly greater in the right upper quadrant. No guarding or rebound.), normal bowel sounds. Absent: distended, guarding, rebound, rigid, mass, pulsatile mass, hernia Extremities exam: Present: normal inspection, normal capillary refill. Absent: pedal edema, calf tenderness Back exam: Present: normal inspection. Absent: CVA tenderness (R), CVA tenderness (L) Neurological exam: Present: alert Skin exam: Present: warm, dry, intact, normal color. Absent: rash Course Vital Signs 09/02/18 09/02/18 09/02/18 00:22 02:23 02:30 Pulse Rate 111 H 86 80 Respiratory 18 Rate Blood Pressure 178/108 164/81 171/82 O2 Sat by Pulse 99 98 96 Oximetry 09/02/18 09/02/18 09/02/18 02:40 03:10 03:40 Pulse Rate 71 76 73 Respiratory 16 Rate Blood Pressure 159/78 164/89 170/83 O2 Sat by Pulse 98 97 97 Oximetry 09/02/18 04:29 Pulse Rate 80 Respiratory 19 Rate Blood Pressure 178/77 O2 Sat by Pulse 98 Oximetry Medical Decision Making - Lab Data Result diagrams: 09/02/18 00:46 09/02/18 00:46 Lab Results 09/02/18 09/02/18 09/02/18 Range/Units 00:46 00:46 00:46 WBC 12.4 H (3.8-10.6) k/uL RBC 4.66 (3.80-5.40) m/uL Hgb 13.7 (11.4-16.0) gm/dL Hct 42.3 (34.0-46.0) % MCV 90.9 (80.0-100.0) fL MCH 29.4 (25.0-35.0) pg MCHC 32.4 (31.0-37.0) g/dL RDW 14.4 (11.5-15.5) % Plt Count 401 (150-450) k/uL Neutrophils % 75 % Lymphocytes % 15 % Monocytes % 5 % Eosinophils % 3 % Basophils % 0 % Neutrophils # 9.3 H (1.3-7.7) k/uL Lymphocytes # 1.9 (1.0-4.8) k/uL Monocytes # 0.6 (0-1.0) k/uL Eosinophils # 0.4 (0-0.7) k/uL Basophils # 0.0 (0-0.2) k/uL PT (9.0-12.0) sec INR (<1.2) APTT (22.0-30.0) sec D-Dimer (<0.60) mg/L FEU Sodium 136 L (137-145) mmol/L Potassium 4.4 (3.5-5.1) mmol/L Chloride 105 (98-107) mmol/L Carbon Dioxide 20 L (22-30) mmol/L Anion Gap 11 mmol/L BUN 13 (7-17) mg/dL Creatinine 0.80 (0.52-1.04) mg/dL Est GFR (CKD-EPI)AfAm >90 (>60 ml/min/1.73 sqM) Est GFR (CKD-EPI)NonAf 87 (>60 ml/min/1.73 sqM) Glucose 143 H (74-99) mg/dL Calcium 9.3 (8.4-10.2) mg/dL Magnesium 1.9 (1.6-2.3) mg/dL Total Bilirubin 0.4 (0.2-1.3) mg/dL AST 26 (14-36) U/L ALT 34 (9-52) U/L Alkaline Phosphatase 50 (38-126) U/L Total Creatine Kinase 97 (30-135) U/L CK-MB (CK-2) 2.2 (0.0-2.4) ng/mL CK-MB (CK-2) Rel Index 2.3 Troponin I <0.012 (0.000-0.034) ng/mL Total Protein 7.2 (6.3-8.2) g/dL Albumin 4.2 (3.5-5.0) g/dL 09/02/18 Range/Units 00:46 WBC (3.8-10.6) k/uL RBC (3.80-5.40) m/uL Hgb (11.4-16.0) gm/dL Hct (34.0-46.0) % MCV (80.0-100.0) fL MCH (25.0-35.0) pg MCHC (31.0-37.0) g/dL RDW (11.5-15.5) % Plt Count (150-450) k/uL Neutrophils % % Lymphocytes % % Monocytes % % Eosinophils % % Basophils % % Neutrophils # (1.3-7.7) k/uL Lymphocytes # (1.0-4.8) k/uL Monocytes # (0-1.0) k/uL Eosinophils # (0-0.7) k/uL Basophils # (0-0.2) k/uL PT 9.4 (9.0-12.0) sec INR 0.9 (<1.2) APTT 21.7 L (22.0-30.0) sec D-Dimer 2.81 H (<0.60) mg/L FEU Sodium (137-145) mmol/L Potassium (3.5-5.1) mmol/L Chloride (98-107) mmol/L Carbon Dioxide (22-30) mmol/L Anion Gap mmol/L BUN (7-17) mg/dL Creatinine (0.52-1.04) mg/dL Est GFR (CKD-EPI)AfAm (>60 ml/min/1.73 sqM) Est GFR (CKD-EPI)NonAf (>60 ml/min/1.73 sqM) Glucose (74-99) mg/dL Calcium (8.4-10.2) mg/dL Magnesium (1.6-2.3) mg/dL Total Bilirubin (0.2-1.3) mg/dL AST (14-36) U/L ALT (9-52) U/L Alkaline Phosphatase (38-126) U/L Total Creatine Kinase (30-135) U/L CK-MB (CK-2) (0.0-2.4) ng/mL CK-MB (CK-2) Rel Index Troponin I (0.000-0.034) ng/mL Total Protein (6.3-8.2) g/dL Albumin (3.5-5.0) g/dL Disposition Clinical Impression: Epigastric pain Disposition: ADMITTED IP TO THIS HOSP Condition: Fair Referrals: Beti Teixeira MD [Primary Care Provider] - 1-2 days
[2018-09-02] MEDS ORDERED: FAMOTIDINE 20 MG/2 ML VIAL IV SCH (05:30)
[2018-09-02] MEDS ORDERED: LABETALOL SYRINGE 5 MG/ML IVP STA (05:35)
[2018-09-02] MEDS: SODIUM CHLORIDE 0.9% 1,000 ML IV SCH ×3 (06:33→20:40)
--- NOTE | 2018-09-02 07:34 | US ---
EXAMINATION TYPE: US abdomen limited DATE OF EXAM: 09/02/2018 COMPARISON: CT earlier today CLINICAL HISTORY: Pain, attention RUQ. Chest pain, vomiting EXAM MEASUREMENTS: Liver Length: 16.7 cm Gallbladder Wall: 0.3 cm CBD: 0.3 cm Right Kidney: 11.6 x 5.3 x 5.4 cm Pancreas: wnl, tail obscured by overlying bowel gas Liver: wnl Gallbladder: Mobile gallstones Evidence for sonographic Corral's sign: Yes CBD: wnl Right Kidney: Cyst lateral/lower= 6.4 x 5.2 x 5.3 cm Visualized portion of pancreas is felt within normal limits. Visualized liver is heterogeneously hype rechoic which correlates with CT. No surrounding ascites is seen. No intrahepatic ductal dilatation i s present. Gallbladder shows at least one mobile shadowing gallstone. No pericholecystic fluid or abn ormal gallbladder wall thickening is seen. Sonographic Corral's sign is positive however. There is re demonstration of 6.4 cm thin-walled anechoic lesion favoring simple cyst laterally mid to lower pole level right kidney not as well visualized on ultrasound images saved versus recent CT. IMPRESSION: 1. Gallstones without secondary ultrasound evidence for acute cholecystitis. However in patient with right upper quadrant pain and sonographic Corral's sign it cannot be entirely excluded. Consider HIDA scan follow-up. 2. Heterogeneity of liver could reflect product of diffuse fatty infiltration or underlying hepatocel lular disease. Imaging guided random biopsy for tissue analysis can be performed if desired.
[2018-09-02] MEDS: HYDROmorphone 0.5 MG/0.5 ML SYRINGE IVP PRN ×3 (09:32→20:32)
--- NOTE | 2018-09-02 14:11 | P.HPIM ---
History of Present Illness 48-year-old came female came in with comments of epigastric abdominal pain sharp in nature radiating to the back. Patient had a recent appendectomy patient also was evaluated in the recent past for abdominal lymphadenopathy numbness which turned to be malignant. Patient denied any fever chills nausea vomiting. Patient does have leukocytosis Corral's sign is negative CAT scan of the abdomen and CT of the chest were obtained. These are significant for gall stones there is no significant cholelithiasis ultrasound of the abdomen was often as well. I'll obtain a HIDA scan to the surgery will be consulted. Patient clinically doesn't have any rebound or rigidity Corral's sign is negative. Patient has 10/10 pain. Patient denied and diaphoresis troponin is negative do not have any EKG without any EKG. Patient also has nausea vomiting the symptoms has been going on for couple days Review of Systems REVIEW OF SYSTEMS: CONSTITUTIONAL: No fever, no malaise, no fatigue. HEENT: No recent visual problems or hearing problems. Denied any sore throat. CARDIOVASCULAR: No chest pain, orthopnea, PND, no palpitations, no syncope. PULMONARY: No shortness of breath, no cough, no hemoptysis. GASTROINTESTINAL: No diarrhea, no nausea, no vomiting, no abdominal pain. NEUROLOGICAL: No headaches, no weakness, no numbness. HEMATOLOGICAL: Denies any bleeding or petechiae. GENITOURINARY: Denies any burning micturition, frequency, or urgency. MUSCULOSKELETAL/RHEUMATOLOGICAL: Denies any joint pain, swelling, or any muscle pain. ENDOCRINE: Denies any polyuria or polydipsia. The rest of the 14-point review of systems is negative. Past Medical History Past Medical History: Cancer, GERD/Reflux, Hypertension, Pneumonia Additional Past Medical History / Comment(s): Pt states since August, she has had a couple incidences of ascities/abdominal pain and recently issues with SOB and mediastinal adenopathy-had mediastinoscopy 08/20/18, past basal cell skin cancer with removals, occasional low back pain. History of Any Multi-Drug Resistant Organisms: None Reported Past Surgical History: Appendectomy, Back Surgery, Tonsillectomy, Tubal Ligation Additional Past Surgical History / Comment(s): 08/20/18 mediastinoscopy with bx , EGD with benign bx, lumbar fusion, basal cell skin cancer removals. Past Anesthesia/Blood Transfusion Reactions: Motion Sickness, Postoperative Nausea & Vomiting (PONV) Smoking Status: Former smoker - Past Family History Mother Family Medical History: CVA/TIA Additional Family Medical History / Comment(s): Mother is healthy and is in her 70's Father Family Medical History: No Reported History Additional Family Medical History / Comment(s): Father is healthy. He is in his 70s Medications and Allergies Home Medications Medication Instructions Recorded Confirmed Type Lisinopril [Zestril] 10 mg PO DAILY 08/28/17 09/02/18 History Norethindrone-E.estradiol-Iron 1 tab PO HS 07/08/18 09/02/18 History [Junel Fe 1.5 mg-30 Mcg Tablet] Omeprazole [PriLOSEC] 20 mg PO AC-BRKFST 08/20/18 09/02/18 History Allergies Allergy/AdvReac Type Severity Reaction Status Date / Time adhesive tape Allergy BLISTERS Verified 09/02/18 07:16 AND RED SKIN FROM TAPE Physical Exam Vitals: Vital Signs Pulse Resp BP Pulse Ox 09/02/18 13:00 80 183/93 96 09/02/18 12:00 90 184/98 96 09/02/18 11:00 73 180/94 97 09/02/18 10:00 87 178/85 96 09/02/18 09:00 85 169/87 96 09/02/18 08:00 79 173/98 96 09/02/18 07:00 74 180/89 97 09/02/18 06:38 78 18 180/89 96 09/02/18 04:29 80 19 178/77 98 09/02/18 03:40 73 16 170/83 97 09/02/18 03:10 76 164/89 97 09/02/18 02:40 71 159/78 98 09/02/18 02:30 80 171/82 96 09/02/18 02:23 86 164/81 98 09/02/18 00:22 111 H 18 178/108 99 Intake and Output 09/01/18 09/02/18 09/02/18 22:59 06:59 14:59 Other: Weight 104.326 kg PHYSICAL EXAMINATION: GENERAL: The patient is alert and oriented x3, not in any acute distress. Obese HEENT: Pupils are round and equally reacting to light. EOMI. No scleral icterus. No conjunctival pallor. Normocephalic, atraumatic. No pharyngeal erythema. No thyromegaly. CARDIOVASCULAR: S1 and S2 present. No murmurs, rubs, or gallops. PULMONARY: Chest is clear to auscultation, no wheezing or crackles. ABDOMEN: Soft, nontender, nondistended, normoactive bowel sounds. No palpable organomegaly. MUSCULOSKELETAL: No joint swelling or deformity. EXTREMITIES: No cyanosis, clubbing, or pedal edema. NEUROLOGICAL: Gross neurological examination did not reveal any focal deficits. SKIN: No rashes. Results CBC & Chem 7: 09/02/18 00:46 09/02/18 00:46 Labs: Abnormal Lab Results - Last 24 Hours (Table) 09/02/18 09/02/18 09/02/18 Range/Units 00:46 00:46 00:46 WBC 12.4 H (3.8-10.6) k/uL Neutrophils # 9.3 H (1.3-7.7) k/uL APTT 21.7 L (22.0-30.0) sec D-Dimer 2.81 H (<0.60) mg/L FEU Sodium 136 L (137-145) mmol/L Carbon Dioxide 20 L (22-30) mmol/L Glucose 143 H (74-99) mg/dL Thrombosis Risk Factor Assmnt - Choose All That Apply Any of the Below Risk Factors Present?: Yes Each Factor Represents 1 point: Age 41-60 years, Obesity (BMI >25) Other Risk Factors: Yes Each Risk Factor Represents 2 Points: Malignancy Other congenital or acquired thrombophilia - If yes, enter type in comment: No Thrombosis Risk Factor Assessment Total Risk Factor Score: 4 Thrombosis Risk Factor Assessment Level: Moderate Risk Assessment and Plan Plan: -Epigastric abdominal pain radiating to the back patient is obese female on oral contraceptive pills and does have cholelithiasis may have cholecystitis which cannot be ruled out I'll start her any numbness in the neurosurgery will be consulted will obtain HIDA scan -Rule out pulmonary embolism was ruled out acute continuous syndromes -Abdominal lymphadenopathy patient was evaluated in the past for this had multiple biopsies in the past is being followed up with oncology no evidence of any malignancy. -Gases patient reflux disease -Hypertension patient blood pressure is bit elevated with tachycardia secondary to pain
--- NOTE | 2018-09-02 16:27 | NM ---
EXAMINATION TYPE: NM hepatobiliary wo EF DATE OF EXAM: 09/02/2018 COMPARISON: Correlation ultrasound earlier today HISTORY: 48-year-old female with abdominal pain TECHNIQUE: After the intravenous administration of 4.84 mCi Tc 99m Mebrofenin hepatobiliary scintigra phy is performed. Immediate images post injection. FINDINGS: Satisfactory initial uptake of tracer by the liver. Initial imaging carried out to 1 hour. Small bowel activity is seen at 8 minutes. Beginning at 46 min utes, prominent biliary reflux is noted extending into the stomach. Additional 90 minute and 2 hour imaging was performed and shows tracer activity progressing throughou t small bowel loops. Most of the activity within the liver has passed. IMPRESSION: Nonvisualization of gallbladder at 2 hours. Given the ultrasound findings, findings suggest acute cho lecystitis.
[2018-09-02] MEDS: LISINOPRIL 10 MG TAB PO SCH (16:53)
[2018-09-02] MEDS: AMPICILLIN-SULBACTAM 3 GM in SODIUM CHLORIDE 0.9% 100 ML IVPB SCH (17:46)
[2018-09-03] MEDS: AMPICILLIN-SULBACTAM 3 GM in SODIUM CHLORIDE 0.9% 100 ML IVPB SCH ×3 (00:31→16:01)
[2018-09-03] MEDS: HYDROmorphone 0.5 MG/0.5 ML SYRINGE IVP PRN ×5 (02:21→22:49)
[2018-09-03] MEDS: SODIUM CHLORIDE 0.9% 1,000 ML IV SCH ×3 (08:05→15:17)
[2018-09-03] MEDS: PANTOPRAZOLE 40 MG TABLET PO SCH (08:06)
[2018-09-03] MEDS: LISINOPRIL 10 MG TAB PO SCH (08:07)
--- NOTE | 2018-09-03 08:55 | P.GSCN ---
History of Present Illness Consult date: 09/03/18 History of present illness: 48-year-old female presented to the emergency department with complaints of abdominal pain. She states that her pain started a few days ago and has been in the epigastrium and right upper quadrant. She states that she has had multiple attacks like this in the past. She is unsure of whether her pain is associated with oral intake. She complains of nausea and complaints of some emesis episodes. She denies any change in bowel function. She states she has not felt better since she has been admitted. Workup has been completed with multiple radiologic imaging studies. CT of the abdomen and pelvis revealed no acute process. Ultrasound of the gallbladder did reveal cholelithiasis. HIDA scan did reveal acute cholecystitis. Currently, the patient denies any fevers, chills, chest pain or shortness. Review of Systems All systems: negative Past Medical History Past Medical History: Cancer, GERD/Reflux, Hypertension, Pneumonia Additional Past Medical History / Comment(s): Pt states since August, she has had a couple incidences of ascities/abdominal pain and recently issues with SOB and mediastinal adenopathy-had mediastinoscopy 08/20/18, past basal cell skin cancer with removals, occasional low back pain. History of Any Multi-Drug Resistant Organisms: None Reported Past Surgical History: Appendectomy, Back Surgery, Tonsillectomy, Tubal Ligation Additional Past Surgical History / Comment(s): 08/20/18 mediastinoscopy with bx , EGD with benign bx, lumbar fusion, basal cell skin cancer removals. Past Anesthesia/Blood Transfusion Reactions: Motion Sickness, Postoperative Nausea & Vomiting (PONV) Smoking Status: Former smoker - Past Family History Mother Family Medical History: CVA/TIA Additional Family Medical History / Comment(s): Mother is healthy and is in her 70's Father Family Medical History: No Reported History Additional Family Medical History / Comment(s): Father is healthy. He is in his 70s Medications and Allergies Home Medications Medication Instructions Recorded Confirmed Type Lisinopril [Zestril] 10 mg PO DAILY 08/28/17 09/02/18 History Norethindrone-E.estradiol-Iron 1 tab PO HS 07/08/18 09/02/18 History [Junel Fe 1.5 mg-30 Mcg Tablet] Omeprazole [PriLOSEC] 20 mg PO AC-BRKFST 08/20/18 09/02/18 History Allergies Allergy/AdvReac Type Severity Reaction Status Date / Time adhesive tape Allergy BLISTERS Verified 09/02/18 07:16 AND RED SKIN FROM TAPE Surgical - Exam Osteopathic Statement: *. No significant issues noted on an osteopathic structural exam other than those noted in the History and Physical/Consult. Vital Signs Pulse Resp BP Pulse Ox 111 H 18 178/108 99 09/02/18 00:22 09/02/18 00:22 09/02/18 00:22 09/02/18 00:22 - General well nourished, no distress - Eyes PERRL - Neck trachea midline - Respiratory No difficulty with respiration - Abdomen Soft, tender in the right upper quadrant, nondistended, no rebound, no guarding - Psychiatric oriented to time, oriented to person, oriented to place Results - Labs 09/02/18 00:46 09/02/18 00:46 - Imaging Additional studies: HIDA scan was reviewed and did reveal acute cholecystitis with no lighting up of the gallbladder Assessment and Plan (1) Acute cholecystitis Narrative/Plan: 48-year-old female with acute cholecystitis. Keep the patient nothing by mouth. Did discuss the case in depth with the patient that we do plan for laparoscopic cholecystectomy. Further recommendations after surgery. Current Visit: Yes Status: Acute Code(s): K81.0 - ACUTE CHOLECYSTITIS SNOMED Code(s): 15892271
--- NOTE | 2018-09-03 11:32 | P.PN ---
Subjective 48-year-old female admitted for epigastric abdominal pain and sharp right upper quadrant pain patient appears to have cholecystitis on HIDA scan and patient is going for cholecystectomy continue with Unasyn. Possibility of discharge tomorrow patient pain is bit better today Constitutional: Denied any fatigue denied any fever. Cardio vascular: denied any chest pain, palpitations Gastrointestinal nausea improved Pulmonary: Denied any shortness of breath cough Neurologic denied any new focal deficits All inpatient medications were reviewed and appropriate changes in these medications as dictated in the interval history and assessment and plan. Objective - Vital Signs Vital signs: Vital Signs Temp 98.3 F 09/03/18 08:00 Pulse 89 09/03/18 08:00 Resp 16 09/03/18 08:00 BP 150/70 09/03/18 08:00 Pulse Ox 95 09/03/18 08:12 Intake & Output 09/02/18 09/03/18 09/03/18 18:59 06:59 18:59 Weight 107 kg 107 kg Other: Voiding Method Toilet Toilet # Voids 2 - Exam PHYSICAL EXAMINATION: GENERAL: The patient is alert and oriented x3, not in any acute distress. Obese HEENT: Pupils are round and equally reacting to light. EOMI. No scleral icterus. No conjunctival pallor. Normocephalic, atraumatic. No pharyngeal erythema. No thyromegaly. CARDIOVASCULAR: S1 and S2 present. No murmurs, rubs, or gallops. PULMONARY: Chest is clear to auscultation, no wheezing or crackles. ABDOMEN: Soft, nontender, nondistended, normoactive bowel sounds. No palpable organomegaly. MUSCULOSKELETAL: No joint swelling or deformity. EXTREMITIES: No cyanosis, clubbing, or pedal edema. NEUROLOGICAL: Gross neurological examination did not reveal any focal deficits. SKIN: No rashes. - Labs CBC & Chem 7: 09/02/18 00:46 09/02/18 00:46 Assessment and Plan Plan: -Epigastric abdominal pain radiating to the back patient is obese female on oral contraceptive pills and does have cholelithiasis and cholecystitis on HIDA scan. Patient is going for cholecystectomy today continue with Unasyn -Rule out pulmonary embolism was ruled out acute coronary syndromes -Abdominal lymphadenopathy patient was evaluated in the past for this had multiple biopsies in the past is being followed up with oncology no evidence of any malignancy. -Gases patient reflux disease -Hypertension patient blood pressure is bit elevated with tachycardia secondary to pain
[2018-09-03 15:05] VITALS: BMI 36.9
[2018-09-03] MEDS ORDERED: BUPIVACAIN-EPI 0.25%-1:200,000 30 ML VIAL SQ ONE ×2 (17:29→18:46)
[2018-09-03] MEDS ORDERED: GLYCOPYRROLATE 0.2 MG/ML 2 ML VIAL ONE (17:48)
[2018-09-03] MEDS ORDERED: LIDOCAINE 1% INJ 10MG/ML (20 ML MDV) ONE (17:48)
[2018-09-03] MEDS ORDERED: HYDROmorphone (PF) 1 MG/ML ONE (17:48)
[2018-09-03] MEDS ORDERED: NEOSTIGMINE 1 MG/ML 10 ML VIAL ONE (17:48)
[2018-09-03] MEDS ORDERED: PROPOFOL 10 MG/ML 20 ML VIAL IV ONE (17:48)
[2018-09-03] MEDS ORDERED: KETOROLAC 30 MG/ML 1 ML VIAL ONE (17:48)
[2018-09-03] MEDS ORDERED: SUCCINYLCHOLINE CHLORIDE 100 MG/5 ML SYR IV ONE (17:48)
[2018-09-03] MEDS ORDERED: MIDAZOLAM 2 MG/2 ML VIAL ONE (17:48)
[2018-09-03] MEDS ORDERED: ROCURONIUM BROMIDE 10 MG/ML 10 ML VIAL IV ONE (17:48)
[2018-09-03] MEDS ORDERED: fentaNYL (PF) 50 MCG/ML 2 ML AMP ONE (17:48)
[2018-09-03] MEDS ORDERED: SODIUM CHLORIDE 0.9% 1,000 ML IV ONE (17:51)
[2018-09-03] MEDS ORDERED: SODIUM CHLORIDE 0.9% 50 ML with ceFAZolin 2,000 MG IV ONE ×2 (18:00)
--- NOTE | 2018-09-03 18:55 | P.OP ---
Date of Procedure: 09/03/18 Preoperative Diagnosis: Acute cholecystitis Postoperative Diagnosis: Acute cholecystitis Procedure(s) Performed: Laparoscopic cholecystectomy Anesthesia: SHERMAN Surgeon: Torito Pena Pathology: other (Gallbladder and contents) Condition: stable Disposition: floor Indications for Procedure: 48-year-old female presented with abdominal pain to the emergency department. She describes the pain in the epigastrium and right upper quadrant. She also is having nausea and vomiting episodes. On workup, the patient was found to have acute cholecystitis. Secondary to this, the plan is for a laparoscopic cholecystectomy. The patient was explained the risks, benefits and alternatives to the procedure and did provide consent prior to attending the operating suite. Operative Findings: Inflamed gallbladder, multiple gallstones, friable gallbladder Description of Procedure: The patient was brought into the operating suite and placed in supine position on the operating table. Sedation was provided by anesthesia and the patient underwent endotracheal intubation. The patient was then prepped and draped in regular sterile fashion. A incision was made in the periumbilical area just right of the midline and the abdomen was entered under direct visualization using a 12 mm Visiport. Pneumoperitoneum was then achieved. 3 additional 5 mm trochars were placed. One was placed in the subxiphoid region and 2 were placed in the right upper quadrant. The patient was then placed in appropriate position. The gallbladder was clearly visualized and was noted to be inflamed. The gallbladder was grasped and retracted and dissection was carried to skeletonize both the cystic duct and cystic artery. The cystic duct was skeletonized 2 clips were placed proximally, one was placed distally and the cystic duct was ligated. The cystic artery was then skeletonized 2 clips were placed proximally one was placed distally and the cystic artery was then ligated. Electrocautery was then used to dissect the gallbladder from the gallbladder fossa. The gallbladder was then placed in an Endo Catch bag and removed from the abdomen. Copious muss irrigation was used in the right upper quadrant dissection any residual material. Hemostasis was noted to be maintained. The periumbilical incision site was closed under direct visualization using a 0 Vicryl [id number] suture with Ivan-Usnil device for the fascia. All skin incisions were then closed after the ports were removed. The skin incisions were closed with 4-0 Vicryl subcutaneous suture. The patient was awakened in the operating suite and taken to postanesthesia care unit in stable condition.
[2018-09-03] MEDS: HEPARIN SODIUM,PORCINE 5,000 UNIT/ML 1 ML VIAL SQ SCH (21:20)
[2018-09-03] MEDS ORDERED: LISINOPRIL 10 MG TAB PO STA (22:06)
[2018-09-04] MEDS: HEPARIN SODIUM,PORCINE 5,000 UNIT/ML 1 ML VIAL SQ SCH ×4 (00:30→23:36)
[2018-09-04] MEDS: AMPICILLIN-SULBACTAM 3 GM in SODIUM CHLORIDE 0.9% 100 ML IVPB SCH ×4 (00:34→23:36)
[2018-09-04] MEDS: HYDROmorphone 0.5 MG/0.5 ML SYRINGE IVP PRN ×4 (03:34→23:09)
[2018-09-04] MEDS: SODIUM CHLORIDE 0.9% 1,000 ML IV SCH ×3 (07:55→15:00)
[2018-09-04] MEDS: PANTOPRAZOLE 40 MG TABLET PO SCH (08:06)
[2018-09-04] MEDS: LISINOPRIL 10 MG TAB PO SCH (08:06)
[2018-09-04 08:15] LABS: HCT 41.1 % (34.0-46.0); HGB 13.3 gm/dL (11.4-16.0); MCH 29.2 pg (25.0-35.0); MCHC 32.3 g/dL (31.0-37.0); MCV 90.4 fL (80.0-100.0); Mean Platelet Volume 6.3; Platelet Count 331 k/uL (150-450); RBC 4.54 m/uL (3.80-5.40); WBC 12.6 k/uL (3.8-10.6)
[2018-09-04 08:20] LABS: ALT 54 U/L (9-52); AST 56 U/L (14-36); Albumin 3.5 g/dL (3.5-5.0); Alkaline Phosphatase 53 U/L (38-126); Anion Gap 7 mmol/L; Blood Urea Nitrogen 10 mg/dL (7-17); Calcium 8.5 mg/dL (8.4-10.2); Carbon Dioxide 21 mmol/L (22-30); Chloride 107 mmol/L (98-107); Glucose 158 mg/dL (74-99); Potassium 4.3 mmol/L (3.5-5.1); Sodium 135 mmol/L (137-145); Total Bilirubin 0.5 mg/dL (0.2-1.3); Total Protein 6.5 g/dL (6.3-8.2)
[2018-09-04] MEDS: HYDROcodone/APAP 5-325MG 1 EACH TAB PO PRN ×2 (11:06→17:35)
--- NOTE | 2018-09-04 11:18 | P.PN ---
Subjective Progress Note Date: 09/04/18 Patient seen and examined at bedside. States she is sore at her incision sites. She denies any nausea and vomiting. Tolerating clear liquid diet. She is beginning to ambulate. Objective - Vital Signs Vital signs: Vital Signs Temp 98 F 09/04/18 07:53 Pulse 96 09/04/18 08:00 Resp 16 09/04/18 08:00 BP 142/79 09/04/18 07:53 Pulse Ox 93 L 09/04/18 07:53 Intake & Output 09/03/18 09/04/18 09/04/18 18:59 06:59 18:59 Intake Total 550 1300 Output Total 20 Balance 530 1300 Weight 107 kg Intake: IV 550 0 Intake, IV Titration 1000 Amount Sodium Chloride 0.9% 1, 1000 000 ml @ 125 mls/hr IV . Q8H [facility] Rx#:[id number] Oral 300 Output: Estimated Blood Loss 20 Other: Voiding Method Toilet Toilet Toilet # Voids 1 2 - Constitutional General appearance: Present: cooperative, no acute distress - Respiratory Details: No difficulty with respiration - Gastrointestinal Gastrointestinal Comment(s): Soft, appropriate tenderness, nondistended, no rebound, no guarding, incision sites are clean, dry and intact - Musculoskeletal Musculoskeletal: Present: generalized weakness - Psychiatric Psychiatric: Present: A&O x's 3 - Labs CBC & Chem 7: 09/04/18 07:40 09/04/18 07:40 Labs: Abnormal Lab Results - Last 24 Hours (Table) 09/04/18 09/04/18 Range/Units 07:40 07:40 WBC 12.6 H (3.8-10.6) k/uL Sodium 135 L (137-145) mmol/L Carbon Dioxide 21 L (22-30) mmol/L Glucose 158 H (74-99) mg/dL AST 56 H (14-36) U/L ALT 54 H (9-52) U/L Assessment and Plan (1) Acute cholecystitis Narrative/Plan: Postoperative day #1 from laparoscopic cholecystectomy - Advance diet to soft diet - Continue antibiotics - Increase activity - Incentive spirometry Current Visit: Yes Status: Acute Code(s): K81.0 - ACUTE CHOLECYSTITIS SNOMED Code(s): 88440332
--- NOTE | 2018-09-04 13:47 | P.PN ---
Subjective 48-year-old female admitted for epigastric abdominal pain and sharp right upper quadrant pain patient appears to have cholecystitis on HIDA scan and patient is going for cholecystectomy continue with Unasyn. Possibility of discharge tomorrow patient pain is bit better today 09/04/2018 Patient underwent cholecystectomy yesterday it appears to have significantly inflamed gallbladder. General surgery is recommending creation of IV antibiotics ambulate and the advance her diet. Constitutional: Denied any fatigue denied any fever. Cardio vascular: denied any chest pain, palpitations Gastrointestinal nausea improved Pulmonary: Denied any shortness of breath cough Neurologic denied any new focal deficits All inpatient medications were reviewed and appropriate changes in these medications as dictated in the interval history and assessment and plan. Objective - Vital Signs Vital signs: Vital Signs Temp 98.7 F 09/04/18 12:00 Pulse 107 H 09/04/18 12:00 Resp 16 09/04/18 12:00 BP 155/78 09/04/18 12:00 Pulse Ox 95 09/04/18 12:00 Intake & Output 09/03/18 09/04/18 09/04/18 18:59 06:59 18:59 Intake Total 550 1300 Output Total 20 Balance 530 1300 Weight 107 kg Intake: IV 550 0 Intake, IV Titration 1000 Amount Sodium Chloride 0.9% 1, 1000 000 ml @ 125 mls/hr IV . Q8H [facility] Rx#:[id number] Oral 300 Output: Estimated Blood Loss 20 Other: Voiding Method Toilet Toilet Toilet # Voids 1 2 - Exam PHYSICAL EXAMINATION: GENERAL: The patient is alert and oriented x3, not in any acute distress. Obese HEENT: Pupils are round and equally reacting to light. EOMI. No scleral icterus. No conjunctival pallor. Normocephalic, atraumatic. No pharyngeal erythema. No thyromegaly. CARDIOVASCULAR: S1 and S2 present. No murmurs, rubs, or gallops. PULMONARY: Chest is clear to auscultation, no wheezing or crackles. ABDOMEN: Surgery site area 17 MUSCULOSKELETAL: No joint swelling or deformity. EXTREMITIES: No cyanosis, clubbing, or pedal edema. NEUROLOGICAL: Gross neurological examination did not reveal any focal deficits. SKIN: No rashes. - Labs CBC & Chem 7: 09/04/18 07:40 09/04/18 07:40 Labs: Abnormal Lab Results - Last 24 Hours (Table) 09/04/18 09/04/18 Range/Units 07:40 07:40 WBC 12.6 H (3.8-10.6) k/uL Sodium 135 L (137-145) mmol/L Carbon Dioxide 21 L (22-30) mmol/L Glucose 158 H (74-99) mg/dL AST 56 H (14-36) U/L ALT 54 H (9-52) U/L Assessment and Plan Plan: -Cholecystitis: Status post cholecystectomy continue with Unasyn to possibly of discharge tomorrow -Ruled out pulmonary embolism was ruled out acute coronary syndromes -Abdominal lymphadenopathy patient was evaluated in the past for this had multiple biopsies in the past is being followed up with oncology no evidence of any malignancy. -Gastroesophageal reflux disease -Hypertension patient blood pressure is bit elevated with tachycardia secondary to pain, which improved now
[2018-09-05 08:09] LABS: Anion Gap 6 mmol/L; Blood Urea Nitrogen 15 mg/dL (7-17); Calcium 8.3 mg/dL (8.4-10.2); Carbon Dioxide 23 mmol/L (22-30); Chloride 108 mmol/L (98-107); Glucose 120 mg/dL (74-99); Potassium 4.2 mmol/L (3.5-5.1); Sodium 137 mmol/L (137-145)
[2018-09-05 09:01] LABS: Basophils % (A) 0 %; Eosinophils % (A) 0 %; HCT 37.3 % (34.0-46.0); HGB 12.1 gm/dL (11.4-16.0); Lymphocytes # (A) 1.7 k/uL (1.0-4.8); Lymphocytes % (A) 14 %; MCH 29.6 pg (25.0-35.0); MCHC 32.4 g/dL (31.0-37.0); MCV 91.4 fL (80.0-100.0); Mean Platelet Volume 6.6; Monocytes # (A) 0.6 k/uL (0-1.0); Monocytes % (A) 5 %; Neutrophils # (A) 9.9 k/uL (1.3-7.7); Neutrophils % (A) 79 %; Platelet Count 307 k/uL (150-450); RBC 4.08 m/uL (3.80-5.40); RDW 14.2 % (11.5-15.5); WBC 12.4 k/uL (3.8-10.6)
[2018-09-05 09:08] VITALS: BP 155/78; PULSE 81; RESP 14; TEMP 98.5
[2018-09-05] MEDS: LISINOPRIL 10 MG TAB PO SCH (09:12)
[2018-09-05] MEDS: HEPARIN SODIUM,PORCINE 5,000 UNIT/ML 1 ML VIAL SQ SCH (09:12)
[2018-09-05] MEDS: PANTOPRAZOLE 40 MG TABLET PO SCH (09:12)
[2018-09-05] MEDS: SODIUM CHLORIDE 0.9% 1,000 ML IV SCH (09:16)
--- NOTE | 2018-09-05 09:35 | P.PN ---
Subjective Progress Note Date: 09/05/18 Patient seen and examined at bedside. States her soreness is better today. Denies any nausea or vomiting. Tolerating diet. Objective - Vital Signs Vital signs: Vital Signs Temp 98.5 F 09/05/18 08:00 Pulse 81 09/05/18 08:00 Resp 14 09/05/18 08:00 BP 155/78 09/05/18 08:00 Pulse Ox 96 09/05/18 08:00 Intake & Output 09/04/18 09/05/18 09/05/18 18:59 06:59 18:59 Intake Total 2150 Balance 2150 Weight 111 kg Intake: Intake, IV Titration 1300 Amount Ampicillin-Sulbactam 3 gm 100 In Sodium Chloride 0.9% 100 ml @ 200 mls/hr IVPB Q8HR [facility] Rx#:[id number] Sodium Chloride 0.9% 1, 1200 000 ml @ 75 mls/hr IV . [id number] [facility] Rx#:[id number] Oral 850 Other: Voiding Method Toilet Toilet # Voids 6 2 # Bowel Movements 0 - Constitutional General appearance: Present: cooperative, no acute distress - Respiratory Details: No difficulty with respiration - Gastrointestinal Gastrointestinal Comment(s): Soft, appropriate tenderness, nondistended, no rebound, no guarding, incision sites are clean, dry and intact - Psychiatric Psychiatric: Present: A&O x's 3 - Labs CBC & Chem 7: 09/05/18 07:18 09/05/18 07:18 Labs: Abnormal Lab Results - Last 24 Hours (Table) 09/05/18 09/05/18 Range/Units 07:18 07:18 WBC 12.4 H (3.8-10.6) k/uL Neutrophils # 9.9 H (1.3-7.7) k/uL Chloride 108 H (98-107) mmol/L Glucose 120 H (74-99) mg/dL Calcium 8.3 L (8.4-10.2) mg/dL Assessment and Plan (1) Acute cholecystitis Narrative/Plan: Postoperative day #2 from laparoscopic cholecystectomy - Continue soft diet - Continue antibiotics - Increase activity - Incentive spirometry - Patient is surgically stable for discharge. She is requesting no opiate pain medications. Due to continued leukocytosis, I do recommend home on antibiotics. Current Visit: Yes Status: Acute Code(s): K81.0 - ACUTE CHOLECYSTITIS SNOMED Code(s): 26821514
[2018-09-05] MEDS: AMPICILLIN-SULBACTAM 3 GM in SODIUM CHLORIDE 0.9% 100 ML IVPB SCH (10:05)
--- NOTE | 2018-09-05 13:58 | P.DS ---
Providers Date of admission: 09/03/18 15:47 Attending physician: Ashley Berry Consults: 09/02/18 11:00 Consult Physician Routine Consulting Provider: Torito Pena Consult Reason/Comments: abdominal pain Do you want consulting provider notified?: Yes Primary care physician: Beti Teixeira Hospital Course: 48-year-old female admitted for epigastric abdominal pain and sharp right upper quadrant pain patient appears to have cholecystitis on HIDA scan and patient is going for cholecystectomy continue with Unasyn. Possibility of discharge tomorrow patient pain is bit better today 09/04/2018 Patient underwent cholecystectomy yesterday it appears to have significantly inflamed gallbladder. General surgery is recommending creation of IV antibiotics ambulate and the advance her diet. 09/05/2018 Patient is clinically doing well and will be discharged today will not require any antibiotics patient is not requiring any pain medications. did pass gas move her bowels today. PHYSICAL EXAMINATION: GENERAL: The patient is alert and oriented x3, not in any acute distress. Well developed, well nourished. HEENT: Pupils are round and equally reacting to light. EOMI. No scleral icterus. No conjunctival pallor. Normocephalic, atraumatic. No pharyngeal erythema. No thyromegaly. CARDIOVASCULAR: S1 and S2 present. No murmurs, rubs, or gallops. PULMONARY: Chest is clear to auscultation, no wheezing or crackles. ABDOMEN: Soft, nontender, nondistended, normoactive bowel sounds. No palpable organomegaly. MUSCULOSKELETAL: No joint swelling or deformity. EXTREMITIES: No cyanosis, clubbing, or pedal edema. NEUROLOGICAL: Gross neurological examination did not reveal any focal deficits. SKIN: No rashes. Assessment and Plan Plan: -Cholecystitis: Status post cholecystectomy -Ruled out pulmonary embolism, ruled out acute coronary syndromes -Abdominal lymphadenopathy patient was evaluated in the past for this had multiple biopsies in the past is being followed up with oncology no evidence of any malignancy. -Gastroesophageal reflux disease -Hypertension Patient Condition at Discharge: Fair Plan - Discharge Summary Discharge Rx Participant: No New Discharge Prescriptions: No Action Lisinopril [Zestril] 10 mg PO DAILY Norethindrone-E.estradiol-Iron [Junel Fe 1.5 mg-30 Mcg Tablet] 1 tab PO HS Omeprazole [PriLOSEC] 20 mg PO AC-BRKFST Discharge Medication List Lisinopril [Zestril] 10 mg PO DAILY 08/28/17 [History] Norethindrone-E.estradiol-Iron [Junel Fe 1.5 mg-30 Mcg Tablet] 1 tab PO HS 07/08 [History] Omeprazole [PriLOSEC] 20 mg PO AC-BRKFST 08/20/18 [History] Follow up Appointment(s)/Referral(s): Beti Teixeira MD [Primary Care Provider] - 3 Days Patient Instructions/Handouts: Laparoscopic Cholecystectomy (DC) Discharge Disposition: HOME SELF-CARE
== END 2018-09-05 10:54 | disposition home or self-care (01) | DRG 419 ==
LOC: EC 00:19 → 1SOBS 05:28 → OBSVTOIN 09-03 15:47 → 4SSUR 09-03 17:34
PROVIDERS: ADMIT Hospitalist; ATTEND Hospitalist
PROC: 0FT44ZZ Resection of Gallbladder, Percutaneous Endoscopic Approach (ICD-10-PCS; principal; 2018-09-03 12:05)
DX: K80.00 Calculus of gallbladder with acute cholecystitis without obstruction (principal); K21.9 Gastro-esophageal reflux disease without esophagitis; I10 Essential (primary) hypertension; E66.9 Obesity, unspecified; Z68.38 Body mass index [BMI] 38.0-38.9, adult; D86.9 Sarcoidosis, unspecified; Z79.899 Other long term (current) drug therapy; Z85.828 Personal history of other malignant neoplasm of skin; Z87.891 Personal history of nicotine dependence; Z87.01 Personal history of pneumonia (recurrent); I89.0 Lymphedema, not elsewhere classified; Z98.1 Arthrodesis status
CPT/HCPCS: 36415; 71046; 71275; 74176; 76705; 78226; 80048; 80053; 81025; 82550; 82553; 83735; 84484; 85025; 85027; 85379; 85610; 85730; 88304; 93005; 94760; 96365; 96366; 96375; 96376; 99285

== ENCOUNTER → 2018-09-17 | Outpatient (CLI) | payer OTHER | END | disposition home or self-care (01) | LOC: LABWHC1 10:52 | PROVIDERS: ATTEND Internal Medicine Critical Care Medicine | DX: D86.9 Sarcoidosis, unspecified (principal) | CPT/HCPCS: 36415; 82164 ==

== ENCOUNTER → 2018-09-28 | Outpatient (CLI) | payer OTHER ==
--- NOTE | 2018-09-28 15:23 | US ---
EXAMINATION TYPE: US venous doppler duplex LE LT DATE OF EXAM: 09/28/2018 3:10 PM COMPARISON: NONE CLINICAL HISTORY: left leg pain M79.605. SIDE PERFORMED: Left TECHNIQUE: The lower extremity deep venous system is examined utilizing real time linear array sonog jean with graded compression, doppler sonography and color-flow sonography. VESSELS IMAGED: External Iliac Vein (EIV) Common Femoral Vein Deep Femoral Vein Greater Saphenous Vein * Femoral Vein Popliteal Vein Small Saphenous Vein * Proximal Calf Veins (* superficial vessels) Left Leg: Negative for DVT IMPRESSION: 1. Left lower extremity negative for deep venous thrombosis.
== END | disposition home or self-care (01) ==
LOC: RADUSWWP 14:42
PROVIDERS: ATTEND Internal Medicine
DX: M79.605 Pain in left leg (principal)

== ENCOUNTER → 2018-09-30 | Outpatient (CLI) | payer OTHER ==
--- NOTE | 2018-09-30 09:57 | XR ---
EXAMINATION TYPE: XR knee complete LT DATE OF EXAM: 09/30/2018 CLINICAL HISTORY: pain TECHNIQUE: Three views of the left knee are obtained. COMPARISON: None. FINDINGS: There is no acute fracture/dislocation. The tri-compartment joint spaces appear within no rmal limits. The overlying soft tissue appears unremarkable. IMPRESSION: There is no acute fracture or dislocation ICD 10 NO FRACTURE, INITIAL EVALUATION
--- NOTE | 2018-09-30 10:26 | US ---
EXAMINATION TYPE: US venous doppler duplex LE LT DATE OF EXAM: 09/30/2018 10:11 AM COMPARISON: NONE CLINICAL HISTORY: M25.582 PAIN IN LEFT KNEEW,M79.605 POSTERIOR LEFT LOWER PAIN. Left calf swelling. No redness. No hx of blood clots. No blood thinners. SIDE PERFORMED: Left TECHNIQUE: The lower extremity deep venous system is examined utilizing real time linear array sonog jean with graded compression, doppler sonography and color-flow sonography. VESSELS IMAGED: External Iliac Vein (EIV) Common Femoral Vein Deep Femoral Vein Greater Saphenous Vein * Femoral Vein Popliteal Vein Small Saphenous Vein * Proximal Calf Veins (* superficial vessels) Left Leg: Negative for DVT IMPRESSION: No evidence for DVT.
== END | disposition home or self-care (01) ==
LOC: RADUSWWP 09:29
PROVIDERS: ATTEND Internal Medicine
DX: M25.562 Pain in left knee (principal); M79.605 Pain in left leg

== ENCOUNTER → 2019-01-18 | Outpatient (CLI) | payer OTHER ==
--- NOTE | 2019-01-19 07:30 | XR ---
EXAMINATION TYPE: XR knee limited LT DATE OF EXAM: 01/18/2019 CLINICAL HISTORY: pain TECHNIQUE: Two views of the left knee are obtained. COMPARISON: September 30, 2018 FINDINGS: There is no acute fracture/dislocation. The tri-compartment joint spaces appear within no rmal limits. The overlying soft tissue appears unremarkable. IMPRESSION: There is no acute fracture or dislocation ICD 10 NO FRACTURE, INITIAL EVALUATION
== END | disposition home or self-care (01) ==
LOC: RADXRYALE 16:57
PROVIDERS: ATTEND Internal Medicine
DX: M25.562 Pain in left knee (principal)

== ENCOUNTER 2019-01-22 18:37 | Emergency (ER) | payer OTHER ==
[2019-01-22 18:44] VITALS: RESP 18
[2019-01-22] MEDS ORDERED: MORPHINE SULFATE 4 MG/ML SYRINGE IM STA (18:55)
--- NOTE | 2019-01-22 19:33 | US ---
EXAMINATION TYPE: US venous doppler duplex LE LT DATE OF EXAM: 01/22/2019 7:26 PM COMPARISON: NONE CLINICAL HISTORY: Pain. Pain and swelling to left leg, no h/o dvt SIDE PERFORMED: Left TECHNIQUE: The lower extremity deep venous system is examined utilizing real time linear array sonog jean with graded compression, doppler sonography and color-flow sonography. VESSELS IMAGED: External Iliac Vein (EIV) Common Femoral Vein Deep Femoral Vein Greater Saphenous Vein * Femoral Vein Popliteal Vein Small Saphenous Vein * Proximal Calf Veins (* superficial vessels) Left Leg: Appears to have extensive thrombus seen within proximal calf veins extending up through EI V, no flow detected, within echo filled vein, that does not compress. Grayscale, color doppler, spectral doppler imaging performed of the deep veins of the left lower ext remity. IMPRESSION: There is now new long segment acute DVT in the left lower extremity beginning at origin o f the left superficial femoral artery extending through popliteal artery and below knee into the calf veins.
[2019-01-22] MEDS ORDERED: SODIUM CHLORIDE 0.9% 1,000 ML IV STA (20:22)
[2019-01-22 20:47] LABS: Basophils % (A) 0 %; Eosinophils # (A) 0.6 k/uL (0-0.7); Eosinophils % (A) 5 %; HCT 43.5 % (34.0-46.0); HGB 13.9 gm/dL (11.4-16.0); Lymphocytes % (A) 19 %; MCH 27.8 pg (25.0-35.0); MCHC 31.8 g/dL (31.0-37.0); MCV 87.2 fL (80.0-100.0); Mean Platelet Volume 6.4; Monocytes # (A) 0.5 k/uL (0-1.0); Monocytes % (A) 5 %; Neutrophils # (A) 7.4 k/uL (1.3-7.7); Neutrophils % (A) 69 %; Platelet Count 325 k/uL (150-450); RBC 4.99 m/uL (3.80-5.40); WBC 10.6 k/uL (3.8-10.6)
[2019-01-22] MEDS ORDERED: APIXABAN 5 MG TAB PO STA (20:54)
--- NOTE | 2019-01-22 21:06 | ED ---
General Adult HPI - General Chief complaint: Extremity Problem,Nontraumatic Stated complaint: Calf pain Time Seen by Provider: 01/22/19 18:46 Source: patient, RN notes reviewed, old records reviewed Mode of arrival: ambulatory Limitations: no limitations - History of Present Illness Initial comments: 48-year-old female patient with no pertinent past medical history presents to ED with eczema 9 days of left lower extremity pain. Patient 1 she was seen by her primary care provider and referred to orthopedic for this problem. Patient denies any recent falls or trauma, denies any prolonged travel, denies any active cancer. Patient is on exogenous hormone products. Patient denies any chest pain shortness of breath abdominal pain nausea vomiting or diarrhea. Systemic: Pt denies fatigue, fever/chills, rash. Pt denies weakness, night sweats, weight loss. Neuro: Pt denies headache, visual disturbances, syncope or pre-syncope. HEENT: Pt denies ocular discharge or irritation, otalgia, rhinorrhea, pharyngitis or notable lymphadenopathy. Cardiopulmonary: Pt denies chest pain, SOB, heart palpitations, dyspnea on exertion. Abdominal/GI: Pt denies abdominal pain, n/v/d. : Pt denies dysuria, burning w/ urination, frequency/urgency. Denies new onset urinary or bowel incontinence. MSK: Pt denies oss of strength or function in extremities. Neuro: Pt denies new onset weakness, paresthesias. - Related Data Home Medications Medication Instructions Recorded Confirmed Lisinopril [Zestril] 10 mg PO DAILY 08/28/17 09/02/18 Norethindrone-E.estradiol-Iron 1 tab PO HS 07/08/18 09/02/18 [Junel Fe 1.5 mg-30 Mcg Tablet] Omeprazole [PriLOSEC] 20 mg PO AC-BRKFST 08/20/18 09/02/18 Allergies Allergy/AdvReac Type Severity Reaction Status Date / Time adhesive tape Allergy BLISTERS Verified 09/02/18 07:16 AND RED SKIN FROM TAPE Review of Systems ROS Statement: Those systems with pertinent positive or pertinent negative responses have been documented in the HPI. ROS Other: All systems not noted in ROS Statement are negative. Past Medical History Past Medical History: Cancer, GERD/Reflux, Hypertension, Pneumonia Additional Past Medical History / Comment(s): Pt states since August, she has had a couple incidences of ascities/abdominal pain and recently issues with SOB and mediastinal adenopathy-had mediastinoscopy 08/20/18, past basal cell skin cancer with removals, occasional low back pain. History of Any Multi-Drug Resistant Organisms: None Reported Past Surgical History: Appendectomy, Back Surgery, Cholecystectomy, Tonsillectomy, Tubal Ligation Additional Past Surgical History / Comment(s): 08/20/18 mediastinoscopy with bx, EGD with benign bx, lumbar fusion, basal cell skin cancer removals. Past Anesthesia/Blood Transfusion Reactions: Motion Sickness, Postoperative Nausea & Vomiting (PONV) Past Psychological History: No Psychological Hx Reported Smoking Status: Former smoker Past Alcohol Use History: None Reported Past Drug Use History: None Reported - Past Family History Mother Family Medical History: CVA/TIA Additional Family Medical History / Comment(s): Mother is healthy and is in her 70's Father Family Medical History: No Reported History Additional Family Medical History / Comment(s): Father is healthy. He is in his 70s General Exam - General Exam Comments Initial Comments: Constitutional: NAD, AOX3, Pt has pleasant affect. HEENT: NC/AT, trachea midline, neck supple, no lymphadenopathy. Posterior pharynx non erythematous, without exudates. External ears appear normal, without discharge. Mucous membranes moist. Eyes PERRLA, EOM intact. There is no scleral icterus. No pallor noted. Cardiopulmonary: RRR, no murmurs, rubs or gallops, no JVD noted. Lungs CTAB in anterior and posterior gonzalez. No peripheral edema. Abdominal exam: Abdomen soft and non-distended. Abdomen non-tender to palpation in all 4 quadrants. Bowel sounds active in LLQ. No hepatosplenomegaly. No ecchymosis Neuro: CN II-XII grossly intact. No nuchal rigidity. MSK: Left posterior calf tenderness to palpation. No right posterior calf tenderness. Homans sign positive in L, negative in R. no ecchymoses, no erythema. Posterior tibialis and radial pulse +2 bilaterally. Sensation intact in upper and lower extremities. Full active ROM in upper and lower extremities, 5/5 stregnth. Limitations: no limitations Course Vital Signs 01/22/19 18:41 Temperature 98.5 F Pulse Rate 102 H Respiratory 18 Rate Blood Pressure 178/90 O2 Sat by Pulse 99 Oximetry Medical Decision Making - Medical Decision Making 48-year-old female patient with no pertinent past medical history presents to ED with eczema 9 days of left lower extremity pain. Patient 1 she was seen by her primary care provider and referred to orthopedic for this problem. Patient denies any recent falls or trauma, denies any prolonged travel, denies any active cancer. Patient is on exogenous hormone products. Patient denies any chest pain shortness of breath abdominal pain nausea vomiting or diarrhea. Physical exam displayed: Left posterior calf tenderness to palpation. No right posterior calf tenderness. Homans sign positive in L, negative in R. no ecchymoses, no erythema. Posterior tibialis and radial pulse +2 bilaterally. Ultrasound of left lower extremity displayed a long segment acute DVT in the left lower extremity beginning at the origin of the left superficial small artery stent the popliteal artery and below the knee into the calf veins. These results were explained to patient, patient was understanding. Upon discussion of return parameters the patient became concerned about some mild shortness of breath with exertion she has been experiencing the past month, continues to deny any chest pain. Upon this new complaint a EKG, CTA, troponin and laboratory investigations were ordered. Pt had her blood drawn but then requested DC prior to EKG or CTA. Pt states that her symptoms are fci and unchanged. Denies any new symptoms. Pt administered one dose of eliquis. Pt will be DC with eliquis prescription. Pt will f/u with PCP in 1-2 days for continued evaluation. Case discussed and pt seen by Dr. Stauffer. - Lab Data Result diagrams: 01/22/19 20:32 Lab Results 01/22/19 Range/Units 20:32 WBC 10.6 (3.8-10.6) k/uL RBC 4.99 (3.80-5.40) m/uL Hgb 13.9 (11.4-16.0) gm/dL Hct 43.5 (34.0-46.0) % MCV 87.2 (80.0-100.0) fL MCH 27.8 (25.0-35.0) pg MCHC 31.8 (31.0-37.0) g/dL RDW 15.0 (11.5-15.5) % Plt Count 325 (150-450) k/uL Neutrophils % 69 % Lymphocytes % 19 % Monocytes % 5 % Eosinophils % 5 % Basophils % 0 % Neutrophils # 7.4 (1.3-7.7) k/uL Lymphocytes # 2.0 (1.0-4.8) k/uL Monocytes # 0.5 (0-1.0) k/uL Eosinophils # 0.6 (0-0.7) k/uL Basophils # 0.0 (0-0.2) k/uL Disposition Clinical Impression: DVT (deep venous thrombosis) Disposition: HOME SELF-CARE Condition: Stable Instructions (If sedation given, give patient instructions): Deep Vein Thrombosis (ED) Additional Instructions: Patient to adhere to previously discussed treatment plan and will take medic ation(s) as directed. Patient to follow up with PCP in 1-2 days. Patient to return to ED if symptoms do not improve. Follow-up with primary care provider tomorrow. Take medication as directed. Return to ER if condition worsens in any way. Is patient prescribed a controlled substance at d/c from ED?: No Referrals: Beti Teixeira MD [Primary Care Provider] - 1-2 days
[2019-01-22 21:10] LABS: ALT 32 U/L (9-52); AST 41 U/L (14-36); Alkaline Phosphatase 68 U/L (38-126); Anion Gap 11 mmol/L; Blood Urea Nitrogen 15 mg/dL (7-17); Calcium 9.1 mg/dL (8.4-10.2); Carbon Dioxide 20 mmol/L (22-30); Chloride 107 mmol/L (98-107); Glucose 173 mg/dL (74-99); Potassium 4.6 mmol/L (3.5-5.1); Sodium 138 mmol/L (137-145); Total Bilirubin 0.4 mg/dL (0.2-1.3); Total Protein 7.1 g/dL (6.3-8.2)
[2019-01-22 22:12] VITALS: BP 151/78; PULSE 86; TEMP 98.7
== END 2019-01-22 22:11 | disposition home or self-care (01) ==
LOC: EC 18:37
DX: I82.412 Acute embolism and thrombosis of left femoral vein (principal); I82.432 Acute embolism and thrombosis of left popliteal vein; I82.4Z2 Acute embolism and thrombosis of unspecified deep veins of left distal lower extremity; I10 Essential (primary) hypertension; K21.9 Gastro-esophageal reflux disease without esophagitis; Z79.899 Other long term (current) drug therapy; Z91.048 Other nonmedicinal substance allergy status; Z87.891 Personal history of nicotine dependence; Z85.828 Personal history of other malignant neoplasm of skin
CPT/HCPCS: 36415; 80053; 84484; 85025; 93971; 99284; 96372; J2270

== ENCOUNTER 2019-02-01 14:35 | Inpatient (IN) | payer OTHER ==
--- NOTE | 2019-02-01 15:04 | ED ---
General Adult HPI - General Chief complaint: Chest Pain Stated complaint: Chest Pain Time Seen by Provider: 02/01/19 14:40 Source: EMS, RN notes reviewed Mode of arrival: EMS Limitations: no limitations - History of Present Illness Initial comments: This a 48-year-old female presents emergency department stating that she was recently diagnosed with DVTs and is on eliquis. Patient went to see her primary medical care doctor and complained about intermittent chest pain over the last couple of days. Patient states nothing seems to bring it on or take it away just occurs randomly. Patient states usually last between 5-10 minutes per patient states she's also short of breath. Patient denies any diaphoretic episodes. Patient states she also been consulted nauseous. Patient denies any recent fever or cough. Patient denies any abdominal pain. Patient denies any nausea vomiting diarrhea. Patient denies lightheadedness dizziness or near syncopal episode. - Related Data Home Medications Medication Instructions Recorded Confirmed Omeprazole [PriLOSEC] 20 mg PO AC-BRKFST 08/20/18 02/01/19 Apixaban [Eliquis] 5 mg PO BID 02/01/19 02/01/19 Triamterene-Hctz 37.5-25Mg 1 cap PO DAILY 02/01/19 02/01/19 [Dyazide 37.5-25 Capsule] traMADol HCL [Ultram] 50 mg PO TID PRN 02/01/19 02/01/19 Allergies Allergy/AdvReac Type Severity Reaction Status Date / Time adhesive tape Allergy BLISTERS Verified 02/01/19 15:00 AND RED SKIN FROM TAPE Review of Systems ROS Statement: Those systems with pertinent positive or pertinent negative responses have been documented in the HPI. ROS Other: All systems not noted in ROS Statement are negative. Past Medical History Past Medical History: Cancer, GERD/Reflux, Hypertension, Pneumonia Additional Past Medical History / Comment(s): Pt states since August, she has had a couple incidences of ascities/abdominal pain and recently issues with SOB and mediastinal adenopathy-had mediastinoscopy 08/20/18, past basal cell skin cancer with removals, occasional low back pain. History of Any Multi-Drug Resistant Organisms: None Reported Past Surgical History: Appendectomy, Back Surgery, Cholecystectomy, Tonsillectomy, Tubal Ligation Additional Past Surgical History / Comment(s): 08/20/18 mediastinoscopy with bx, EGD with benign bx, lumbar fusion, basal cell skin cancer removals. Past Anesthesia/Blood Transfusion Reactions: Motion Sickness, Postoperative Nausea & Vomiting (PONV) Past Psychological History: No Psychological Hx Reported Smoking Status: Former smoker Past Alcohol Use History: None Reported Past Drug Use History: None Reported - Past Family History Mother Family Medical History: CVA/TIA Additional Family Medical History / Comment(s): Mother is healthy and is in her 70's Father Family Medical History: No Reported History Additional Family Medical History / Comment(s): Father is healthy. He is in his 70s General Exam - General Exam Comments Initial Comments: GENERAL: Patient is well-developed and well-nourished. Patient is nontoxic and well-hydr ated and is in mild distress. ENT: Neck is soft and supple. No significant lymphadenopathy is noted. Oropharynx is clear. Moist mucous membranes. Neck has full range of motion without eliciting any pain. EYES: The sclera were anicteric and conjunctiva were pink and moist. Extraocular movements were intact and pupils were equal round and reactive to light. Eyelids were unremarkable. PULMONARY: Unlabored respirations. Good breath sounds bilaterally. No audible rales rhonchi or wheezing was noted. CARDIOVASCULAR: Patient is tachycardic at about 120 beats a minute. ABDOMEN: Soft and nontender with normal bowel sounds. SKIN: Skin is clear with no lesions or rashes and otherwise unremarkable. NEUROLOGIC: Patient is alert and oriented x3. Cranial nerves II through XII are grossly intact. Motor and sensory are also intact. Normal speech, volume and content. Symmetrical smile. MUSCULOSKELETAL: Normal extremities with adequate strength and full range of motion. LYMPHATICS: No significant lymphadenopathy is noted PSYCHIATRIC: Normal psychiatric evaluation. Limitations: no limitations Course Vital Signs 02/01/19 02/01/19 14:38 14:46 Temperature 98.1 F Pulse Rate 123 H 121 H Respiratory 16 16 Rate Blood Pressure 143/102 137/101 O2 Sat by Pulse 93 L 94 L Oximetry Medical Decision Making - Medical Decision Making EKG shows sinus tachycardia at 118 bpm NV interval is on a 46 dresses 122 QT interval 346 QTC is 484. Patient's EKG shows right bundle-branch block. Patient's EKG shows no ST segment elevation or depression. CT chest shows PE I started the patient on heparin after talking over the case with Dr. hetal Duran started the patient heparin and continued heparin on the floor. - Lab Data Result diagrams: 02/01/19 14:52 02/01/19 14:52 Lab Results 02/01/19 02/01/19 02/01/19 Range/Units 14:52 14:52 14:52 WBC 11.8 H (3.8-10.6) k/uL RBC 5.22 (3.80-5.40) m/uL Hgb 14.6 (11.4-16.0) gm/dL Hct 44.3 (34.0-46.0) % MCV 84.9 (80.0-100.0) fL MCH 28.0 (25.0-35.0) pg MCHC 33.0 (31.0-37.0) g/dL RDW 15.7 H (11.5-15.5) % Plt Count 467 H (150-450) k/uL Neutrophils % 67 % Lymphocytes % 21 % Monocytes % 6 % Eosinophils % 4 % Basophils % 0 % Neutrophils # 7.9 H (1.3-7.7) k/uL Lymphocytes # 2.5 (1.0-4.8) k/uL Monocytes # 0.7 (0-1.0) k/uL Eosinophils # 0.4 (0-0.7) k/uL Basophils # 0.1 (0-0.2) k/uL PT 10.3 (9.0-12.0) sec INR 1.0 (<1.2) APTT 26.1 (22.0-30.0) sec Sodium 137 (137-145) mmol/L Potassium 4.7 (3.5-5.1) mmol/L Chloride 102 (98-107) mmol/L Carbon Dioxide 23 (22-30) mmol/L Anion Gap 12 mmol/L BUN 25 H (7-17) mg/dL Creatinine 1.07 H (0.52-1.04) mg/dL Est GFR (CKD-EPI)AfAm 70 (>60 ml/min/1.73 sqM) Est GFR (CKD-EPI)NonAf 61 (>60 ml/min/1.73 sqM) Glucose 107 H (74-99) mg/dL Calcium 9.9 (8.4-10.2) mg/dL Magnesium 1.8 (1.6-2.3) mg/dL Total Bilirubin 0.3 (0.2-1.3) mg/dL AST 69 H (14-36) U/L ALT 78 H (9-52) U/L Alkaline Phosphatase 81 (38-126) U/L Troponin I (0.000-0.034) ng/mL Total Protein 7.7 (6.3-8.2) g/dL Albumin 4.5 (3.5-5.0) g/dL 02/01/19 Range/Units 14:52 WBC (3.8-10.6) k/uL RBC (3.80-5.40) m/uL Hgb (11.4-16.0) gm/dL Hct (34.0-46.0) % MCV (80.0-100.0) fL MCH (25.0-35.0) pg MCHC (31.0-37.0) g/dL RDW (11.5-15.5) % Plt Count (150-450) k/uL Neutrophils % % Lymphocytes % % Monocytes % % Eosinophils % % Basophils % % Neutrophils # (1.3-7.7) k/uL Lymphocytes # (1.0-4.8) k/uL Monocytes # (0-1.0) k/uL Eosinophils # (0-0.7) k/uL Basophils # (0-0.2) k/uL PT (9.0-12.0) sec INR (<1.2) APTT (22.0-30.0) sec Sodium (137-145) mmol/L Potassium (3.5-5.1) mmol/L Chloride (98-107) mmol/L Carbon Dioxide (22-30) mmol/L Anion Gap mmol/L BUN (7-17) mg/dL Creatinine (0.52-1.04) mg/dL Est GFR (CKD-EPI)AfAm (>60 ml/min/1.73 sqM) Est GFR (CKD-EPI)NonAf (>60 ml/min/1.73 sqM) Glucose (74-99) mg/dL Calcium (8.4-10.2) mg/dL Magnesium (1.6-2.3) mg/dL Total Bilirubin (0.2-1.3) mg/dL AST (14-36) U/L ALT (9-52) U/L Alkaline Phosphatase (38-126) U/L Troponin I <0.012 (0.000-0.034) ng/mL Total Protein (6.3-8.2) g/dL Albumin (3.5-5.0) g/dL Critical Care Time Critical Care Time: Yes Total Critical Care Time: 35 Disposition Clinical Impression: Pulmonary embolism Disposition: ADMITTED IP TO THIS HOSP Referrals: Beti Teixeira MD [Primary Care Provider] - 1-2 days Time of Disposition: 16:53
[2019-02-01 15:19] LABS: Basophils # (A) 0.1 k/uL (0-0.2); Basophils % (A) 0 %; Eosinophils # (A) 0.4 k/uL (0-0.7); Eosinophils % (A) 4 %; HCT 44.3 % (34.0-46.0); HGB 14.6 gm/dL (11.4-16.0); Lymphocytes # (A) 2.5 k/uL (1.0-4.8); Lymphocytes % (A) 21 %; MCV 84.9 fL (80.0-100.0); Mean Platelet Volume 6.7; Monocytes # (A) 0.7 k/uL (0-1.0); Monocytes % (A) 6 %; Neutrophils # (A) 7.9 k/uL (1.3-7.7); Neutrophils % (A) 67 %; Partial Thromboplastin Time 26.1 sec (22.0-30.0); Platelet Count 467 k/uL (150-450); Prothrombin Time 10.3 sec (9.0-12.0); RBC 5.22 m/uL (3.80-5.40); RDW 15.7 % (11.5-15.5); WBC 11.8 k/uL (3.8-10.6)
[2019-02-01 15:20] LABS: Albumin 4.5 g/dL (3.5-5.0); Calcium 9.9 mg/dL (8.4-10.2); Magnesium 1.8 mg/dL (1.6-2.3); Potassium 4.7 mmol/L (3.5-5.1); Total Bilirubin 0.3 mg/dL (0.2-1.3); Total Protein 7.7 g/dL (6.3-8.2)
--- NOTE | 2019-02-01 15:58 | CT ---
EXAMINATION TYPE: CT chest angio for PE DATE OF EXAM: 02/01/2019 COMPARISON: CTA chest September 02, 2018 HISTORY: Shortness of breath and known Left leg DVT CT DLP: 568.3 mGycm. Automated Exposure Control for Dose Reduction was Utilized. CONTRAST: CTA scan of the thorax is performed with IV Contrast, patient injected with 100 mL of Isovue 370, pul monary embolism protocol. MIP Images are created on CT scanner and reviewed. FINDINGS: LUNGS: Some patchy linear scarring and/or atelectasis in both lower lobes remains present. No new yamila picious consolidation. No suspicious nodules or masses. No pleural effusion or pneumothorax. MEDIASTINUM: There is satisfactory enhancement of the pulmonary artery and its branches, there is new filling defect right lower lobe segmental branch axial image 74 there is additional segmental thromb us left lower lobe branch with subsegmental extension beginning axial image 71. There are enlarged th oracic lymph nodes redemonstrated. For reference lymph node anterior superior mediastinum right parat maryellen region measures 2.4 x 2.3 cm axial image 26 felt diminished in size from prior study. Enlarge d prevascular lymph nodes and subcarinal lymph nodes remain present fairly stable. No cardiomegaly or pericardial effusion. No suspicious right ventricular dilatation. OTHER: Cholecystectomy clips are redemonstrated. IMPRESSION: 1. New small degree of bilateral pulmonary embolism. 2. Suspicious thoracic adenopathy again seen. Critical results of pulmonary embolism called to emergency care physician via telephone at time of di ctation.
[2019-02-01] MEDS ORDERED: HEPARIN SODIUM,PORCINE 10,000 UNIT/ML 1 ML VIAL IV ONE (16:37)
[2019-02-01] MEDS ORDERED: SODIUM CHLORIDE 0.9% 1,000 ML IV ONE (16:55)
--- NOTE | 2019-02-01 17:12 | P.HPIM ---
History of Present Illness This is a pleasant 48 years old female with past medical history of GERD, hypertension, DVT on anticoagulation. She presents because of chest pain. Patient says that she's been diagnosed with left lower extremity DVT and knee and in the groin when she presented about one week to one week and a half with left leg swelling and induration. At that time patient was discharge on Eliquis 10 mg twice daily for 7 days to be followed up by 5 mg twice a day thereafter. Patient has been adherent to treatment. Today she went to her PCP appointment with Dr. Teixeira and there was noticed patient is having high blood pressure and heart rate more than 130. Also patient have some dull central chest pain, mild, non-radiating that comes and go. Associated with some nausea for about one week and a half. Her presentation she has CT A of the chest which shows bilateral PE. Patient was started on heparin drip Vitals looks stable, she is mildly tachycardic at times up to 120s. She is saturating 94% on 2 L oxygen. Labs reviewed showing mild leukocytosis of 11.8 K, INR 1.0, creatinine 1.0, with baseline 0.6. The emergency room patient has chest CTA was showing new small degree bilateral pulmonary embolism. EKG showing sinus tachycardia at 118, with left anterior fascicular block and right bundle branch block. QTC 484. And emergency room patient was started on heparin drip and IV fluids. Review of Systems CONSTITUTIONAL: No fever, no malaise, no fatigue. HEENT: No recent visual problems or hearing problems. Denied any sore throat. CARDIOVASCULAR: No orthopnea, PND, no palpitations, no syncope. PULMONARY: No shortness of breath, no cough, no hemoptysis. GASTROINTESTINAL: No diarrhea, no nausea, no vomiting, no abdominal pain. Normoactive bowel sounds. NEUROLOGICAL: No headaches, no weakness, no numbness. HEMATOLOGICAL: Denies any bleeding or petechiae. GENITOURINARY: Denies any burning micturition, frequency, or urgency. MUSCULOSKELETAL/RHEUMATOLOGICAL: Denies any joint pain, swelling, or any muscle pain. ENDOCRINE: Denies any polyuria or polydipsia. Past Medical History Past Medical History: Cancer, GERD/Reflux, Hypertension, Pneumonia Additional Past Medical History / Comment(s): Pt states since August, she has had a couple incidences of ascities/abdominal pain and recently issues with SOB and mediastinal adenopathy-had mediastinoscopy 08/20/18, past basal cell skin cancer with removals, occasional low back pain. History of Any Multi-Drug Resistant Organisms: None Reported Past Surgical History: Appendectomy, Back Surgery, Cholecystectomy, Tonsillectomy, Tubal Ligation Additional Past Surgical History / Comment(s): 08/20/18 mediastinoscopy with bx, EGD with benign bx, lumbar fusion, basal cell skin cancer removals. Past Anesthesia/Blood Transfusion Reactions: Motion Sickness, Postoperative Nausea & Vomiting (PONV) Past Psychological History: No Psychological Hx Reported Smoking Status: Former smoker Past Alcohol Use History: None Reported Past Drug Use History: None Reported - Past Family History Mother Family Medical History: CVA/TIA Additional Family Medical History / Comment(s): Mother is healthy and is in her 70's Father Family Medical History: No Reported History Additional Family Medical History / Comment(s): Father is healthy. He is in his 70s Medications and Allergies Home Medications Medication Instructions Recorded Confirmed Type Omeprazole [PriLOSEC] 20 mg PO AC-BRKFST 08/20/18 02/01/19 History Apixaban [Eliquis] 5 mg PO BID 02/01/19 02/01/19 History Triamterene-Hctz 37.5-25Mg 1 cap PO DAILY 02/01/19 02/01/19 History [Dyazide 37.5-25 Capsule] traMADol HCL [Ultram] 50 mg PO TID PRN 02/01/19 02/01/19 History Allergies Allergy/AdvReac Type Severity Reaction Status Date / Time adhesive tape Allergy BLISTERS Verified 02/01/19 15:00 AND RED SKIN FROM TAPE Physical Exam Vitals: Vital Signs Temp Pulse Resp BP Pulse Ox 02/01/19 14:46 121 H 16 137/101 94 L 02/01/19 14:38 98.1 F 123 H 16 143/102 93 L Intake and Output 02/01/19 02/01/19 02/01/19 06:59 14:59 22:59 Other: Weight 110.677 kg GENERAL: The patient is alert and oriented x3, not in any acute distress. Well developed, well nourished. HEENT: Pupils are round and equally reacting to light. EOMI. No scleral icterus. No conjunctival pallor. Normocephalic, atraumatic. No pharyngeal erythema. No thyromegaly. CARDIOVASCULAR: S1 and S2 present. No murmurs, rubs, or gallops. PULMONARY: Chest is clear to auscultation, no wheezing or crackles. ABDOMEN: Soft, nontender, nondistended, normoactive bowel sounds. No palpable organomegaly. MUSCULOSKELETAL: No joint swelling or deformity. EXTREMITIES: No cyanosis, clubbing, or pedal edema. NEUROLOGICAL: Gross neurological examination did not reveal any focal deficits. SKIN: No rashes. Results CBC & Chem 7: 02/01/19 14:52 02/01/19 14:52 Labs: Abnormal Lab Results - Last 24 Hours (Table) 02/01/19 02/01/19 Range/Units 14:52 14:52 WBC 11.8 H (3.8-10.6) k/uL RDW 15.7 H (11.5-15.5) % Plt Count 467 H (150-450) k/uL Neutrophils # 7.9 H (1.3-7.7) k/uL BUN 25 H (7-17) mg/dL Creatinine 1.07 H (0.52-1.04) mg/dL Glucose 107 H (74-99) mg/dL AST 69 H (14-36) U/L ALT 78 H (9-52) U/L Assessment and Plan Assessment: Bilateral acute pulmonary embolism Recent history of left leg DVT about one week prior to admission Acute kidney injury Dehydration Elevated liver enzymes mildly elevated liver enzymes at 69 and 78, with normal bilirubin. History of DVT History of GERD Hypertension Plan: This is a pleasant 48 years old female who presents because of bilateral pulmonary embolism. Patient was started on heparin drip. Will call hematology consult. Continue with hydration. we will do echocardiogram. Labs and medication were reviewed.. Continue same treatment. Continue with symptomatic treatment. Resume home medication. Monitor lytes and vitals. DVT and GI prophylaxis. Further recommendations of the clinical course of the patient DVT prophylaxis:heparin GI Prophylaxis: Pepcid PT/OT: Pending Prognosis is guarded
[2019-02-01] MEDS: HEPARIN SOD,PORK IN 0.45% NACL 25,000 UNIT in 0.45% NACL 1 250ML.BAG IV SCH (17:20)
[2019-02-01] MEDS: traMADol 50 MG TAB PO PRN (23:13)
[2019-02-02 02:12] LABS: Glucose,Whole Blood 179 mg/dL (75-99)
[2019-02-02] MEDS: ACETAMINOPHEN TAB 325 MG TAB PO PRN ×3 (02:28→13:00)
--- NOTE | 2019-02-02 07:55 | P.PN ---
Subjective This is a pleasant 48 years old female with past medical history of GERD, hypertension, DVT on anticoagulation. She presents because of chest pain. Patient says that she's been diagnosed with left lower extremity DVT and knee and in the groin when she presented about one week to one week and a half with left leg swelling and induration. At that time patient was discharge on Eliquis 10 mg twice daily for 7 days to be followed up by 5 mg twice a day thereafter. Patient has been adherent to treatment. Today she went to her PCP appointment mitali Teixeira and there was noticed patient is having high blood pressure and heart rate more than 130. Also patient have some dull central chest pain, mild, non-radiating that comes and go. Associated with some nausea for about one week and a half. Her presentation she has CT A of the chest which shows bilateral PE. Patient was started on heparin drip Vitals looks stable, she is mildly tachycardic at times up to 120s. She is saturating 94% on 2 L oxygen. Labs reviewed showing mild leukocytosis of 11.8 K, INR 1.0, creatinine 1.0, with baseline 0.6. The emergency room patient has chest CTA was showing new small degree bilateral pulmonary embolism. EKG showing sinus tachycardia at 118, with left anterior fascicular block and right bundle branch block. QTC 484. And emergency room patient was started on heparin drip and IV fluids. 02/02/2019 Patient is seen and examined today in the ICU as selective overflow. Patient is doing fine. She still have same mild chest pain that comes and go and same like pain which is also controlled. Patient does not look in distress. She is reasonably quietly and dyspneic or tachypneic. No change in her multiple symptoms and she is fully awake. She is not coughing up blood or bleeding from anywhere else. No abdominal pain. Vitas looks stable. Labs from today are still pending however her PTT was high yesterday. Patient remains on heparin drip. With hematology team consult. CONSTITUTIONAL: No fever, no malaise, no fatigue. HEENT: No recent visual problems or hearing problems. Denied any sore throat. CARDIOVASCULAR: No orthopnea, PND, no palpitations, no syncope. PULMONARY: No shortness of breath, no cough, no hemoptysis. GASTROINTESTINAL: No diarrhea, no nausea, no vomiting, no abdominal pain. Normoactive bowel sounds. NEUROLOGICAL: No headaches, no weakness, no numbness. HEMATOLOGICAL: Denies any bleeding or petechiae. GENITOURINARY: Denies any burning micturition, frequency, or urgency. MUSCULOSKELETAL/RHEUMATOLOGICAL: Denies any joint pain, swelling ENDOCRINE: Denies any polyuria or polydipsia. Medication: Tylenol 650 mg, heparin drip at 250 mm, Ultram 50 mg when necessary. Pepcid 20 mg Objective - Vital Signs Vital signs: Vital Signs Temp 97.8 F 02/02/19 04:01 Pulse 84 02/02/19 04:01 Resp 17 02/02/19 04:01 BP 149/87 02/02/19 04:01 Pulse Ox 93 L 02/02/19 04:01 Intake & Output 02/01/19 02/02/19 02/02/19 18:59 06:59 18:59 Intake Total 145.763 Balance 145.763 Weight 110.677 kg 112 kg Intake: Intake, IV Titration 145.763 Amount Heparin Sod,Pork in 0.45% 145.763 NaCl 25,000 unit In 0.45 % NaCl 1 250ml.bag @ 18 UNITS/KG/HR 19.922 mls/hr IV .[id number] [facility] Rx#: [id number] Other: Voiding Method Toilet Bedpan # Voids 1 - Exam GENERAL: The patient is alert and oriented x3, not in any acute distress. Well developed, well nourished. HEENT: Pupils are round and equally reacting to light. EOMI. No scleral icterus. No conjunctival pallor. Normocephalic, atraumatic. No pharyngeal erythema. No thyromegaly. CARDIOVASCULAR: S1 and S2 present. No murmurs, rubs, or gallops. PULMONARY: Chest is clear to auscultation, no wheezing or crackles. ABDOMEN: Soft, nontender, nondistended, normoactive bowel sounds. No palpable organomegaly. MUSCULOSKELETAL: No joint swelling or deformity. EXTREMITIES: No cyanosis, clubbing, or pedal edema. NEUROLOGICAL: Gross neurological examination did not reveal any focal deficits. SKIN: No rashes. - Labs CBC & Chem 7: 02/01/19 14:52 02/01/19 14:52 Labs: Abnormal Lab Results - Last 24 Hours (Table) 02/01/19 02/01/19 02/01/19 Range/Units 14:52 14:52 23:38 WBC 11.8 H (3.8-10.6) k/uL RDW 15.7 H (11.5-15.5) % Plt Count 467 H (150-450) k/uL Neutrophils # 7.9 H (1.3-7.7) k/uL APTT >200.0 H* (22.0-30.0) sec BUN 25 H (7-17) mg/dL Creatinine 1.07 H (0.52-1.04) mg/dL Glucose 107 H (74-99) mg/dL POC Glucose (mg/dL) (75-99) mg/dL AST 69 H (14-36) U/L ALT 78 H (9-52) U/L 02/02/19 Range/Units 02:00 WBC (3.8-10.6) k/uL RDW (11.5-15.5) % Plt Count (150-450) k/uL Neutrophils # (1.3-7.7) k/uL APTT (22.0-30.0) sec BUN (7-17) mg/dL Creatinine (0.52-1.04) mg/dL Glucose (74-99) mg/dL POC Glucose (mg/dL) 179 H (75-99) mg/dL AST (14-36) U/L ALT (9-52) U/L Assessment and Plan Assessment: Bilateral acute pulmonary embolism Recent history of left leg DVT about one week prior to admission Acute kidney injury Dehydration Elevated liver enzymes mildly elevated liver enzymes at 69 and 78, with normal bilirubin. History of DVT History of GERD Hypertension Plan: This is a pleasant 48 years old female who presents because of bilateral pulmonary embolism. Patient was started on heparin drip. Will call hematology consult. Continue with hydration. we will do echocardiogram. Labs and medication were reviewed.. Continue same treatment. Continue with symptomatic treatment. Resume home medication. Monitor lytes and vitals. DVT and GI prophylaxis. Further recommendations of the clinical course of the patient DVT prophylaxis:heparin GI Prophylaxis: Pepcid PT/OT: Pending Prognosis is guarded
[2019-02-02 08:48] LABS: Basophils # (A) 0.1 k/uL (0-0.2); Basophils % (A) 1 %; Eosinophils # (A) 0.5 k/uL (0-0.7); Eosinophils % (A) 7 %; HCT 40.2 % (34.0-46.0); HGB 12.7 gm/dL (11.4-16.0); Lymphocytes # (A) 1.8 k/uL (1.0-4.8); Lymphocytes % (A) 24 %; MCHC 31.6 g/dL (31.0-37.0); MCV 88.8 fL (80.0-100.0); Mean Platelet Volume 6.4; Monocytes # (A) 0.4 k/uL (0-1.0); Monocytes % (A) 5 %; Neutrophils # (A) 4.6 k/uL (1.3-7.7); Neutrophils % (A) 61 %; Platelet Count 434 k/uL (150-450); RBC 4.53 m/uL (3.80-5.40); RDW 14.8 % (11.5-15.5); WBC 7.6 k/uL (3.8-10.6)
[2019-02-02] MEDS ORDERED: FAMOTIDINE 20 MG/2 ML VIAL IV SCH (09:00)
[2019-02-02 10:00] LABS: ALT 73 U/L (9-52); AST 69 U/L (14-36); African American GFR (CKD) >90 (>60 ml/min/1.73 sqM); Albumin 3.6 g/dL (3.5-5.0); Alkaline Phosphatase 79 U/L (38-126); Anion Gap 11 mmol/L; Blood Urea Nitrogen 21 mg/dL (7-17); Calcium 8.7 mg/dL (8.4-10.2); Carbon Dioxide 20 mmol/L (22-30); Chloride 105 mmol/L (98-107); Glucose 222 mg/dL (74-99); Magnesium 1.9 mg/dL (1.6-2.3); Potassium 4.2 mmol/L (3.5-5.1); Sodium 136 mmol/L (137-145); Total Bilirubin 0.2 mg/dL (0.2-1.3); Total Protein 6.3 g/dL (6.3-8.2)
[2019-02-02] MEDS ORDERED: IOPAMIDOL-300 CONTRAST 30 ML VIAL (ORAL USE) PO PRN (10:02)
[2019-02-02] MEDS: HEPARIN SOD,PORK IN 0.45% NACL 25,000 UNIT in 0.45% NACL 1 250ML.BAG IV SCH ×2 (10:54→23:26)
[2019-02-02] MEDS: TRIAMTERENE-HCTZ 37.5-25MG 1 EACH CAP PO SCH (12:42)
[2019-02-02] MEDS: traMADol 50 MG TAB PO PRN (13:00)
[2019-02-02] MEDS: IOPAMIDOL-300 CONTRAST 30 ML VIAL (ORAL USE) PO PRN ×2 (14:16→15:10)
--- NOTE | 2019-02-02 17:18 | CT ---
EXAMINATION TYPE: CT abdomen pelvis w con DATE OF EXAM: 02/02/2019 COMPARISON: 09/02/2018 HISTORY: Recent diagnosis pulmonary embolism, assess for neoplasm CT DLP: 1974.2 mGycm Automated exposure control for dose reduction was used. TECHNIQUE: Helical acquisition of images was performed from the lung bases through the pelvis. FINDINGS: LUNG BASES: No significant abnormality is appreciated. LIVER/GB: No significant abnormality is appreciated. PANCREAS: No significant abnormality is seen. SPLEEN: No significant abnormality is seen. ADRENALS: No significant abnormality is seen. KIDNEYS: No significant abnormality is seen. 6 cm diameter Bosniak 1 simple renal cyst noted. FREE AIR: No free air is visualized. RETROPERITONEAL ADENOPATHY: None visualized REPRODUCTIVE ORGANS: No significant abnormality is seen URINARY BLADDER: No significant abnormality is seen. PELVIC ADENOPATHY: None visualized. OSSEOUS STRUCTURES: No significant abnormality is seen. BOWEL: No significant abnormality is seen. OTHER: No vascular abnormalities. IMPRESSION: NO ACUTE PROCESS.
--- NOTE | 2019-02-02 19:55 | P.CONS ---
History of Present Illness - Reason for Consult Consult date: 02/02/19 DVT /PE - History of Present Illness Ms. Nelson is a 48-year-old white female, with a known history of enlarged mediastinal lymph nodes, since at least 09/10. At that time she had presented with chest tightness and shortness of breath. She had a CT of the thoracic aorta to rule out dissection, which incidentally noted multiple enlarged mediastinal lymph nodes. It is not clear if she had any follow-up at that time. She had again presented in 07/11 with similar complaints with CAT scan revealing similar findings. She had a PET scan in 08/10, which showed uptake in multiple mediastinal nodes, but not elsewhere. She underwent mediastinoscopy with biopsy by CT surgery on 08/23/18. His was negative for malignancy and showed nonnecrotizing granulomatous adenitis. 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 She had workup for DVT and PE again in 09/11 that was negative The patient had presented earlier this month with complains of swelling in her left lower extremity, that had developed and progressed over about 2 days causing increasing discomfort on weightbearing. She was seen by her primary care physician, and sent in to the emergency room where Doppler revealed extensive DVT involving the external iliac down to the popliteal veins. She was discharged home on eliquis. He states that she has been taking it faithfully without missing any doses. The patient was in her PCPs office, when she was noted to have increased heart rate and blood pressure. She also noted some chest tightness and shortness of breath. He was sent back to the ER where CTA now noted bilateral small PE in the lower lobes. She was started on IV heparin and consult placed. The patient denied any prior history of DVT or PE. There is no family history of the same. She had been on oral contraceptives for 1-1/2 years at the time of diagnosis of her DVT, for liberalization of heavy irregular periods. She discontinued those at the time of the DVT diagnosis. Review of Systems Constitutional: Reports fatigue Eyes: denies blurred vision, denies pain Ears: deny: decreased hearing, ear discharge, earache, tinnitus Ears, nose, mouth and throat: Denies headache, Denies sore throat Cardiovascular: Reports chest pain, Reports high blood pressure, Reports palpitations, Reports shortness of breath Respiratory: Reports as per HPI, Reports dyspnea Gastrointestinal: Denies abdominal pain, Denies diarrhea, Denies nausea, Denies vomiting Genitourinary: Denies dysuria, Denies hematuria Menstruation: Reports cycle variable, Reports period heavy Musculoskeletal: Denies myalgias Integumentary: Denies pruritus, Denies rash Neurological: Denies numbness, Denies weakness Psychiatric: Denies anxiety, Denies depression Endocrine: Denies weight change Hematologic/Lymphatic: Reports lymphadenopathy Past Medical History Past Medical History: Cancer, Deep Vein Thrombosis (DVT), GERD/Reflux, Hypertension, Pulmonary Embolus (PE) Additional Past Medical History / Comment(s): Mediastinal adenopathy - had mediastinoscopy 08/20/18 biopsy negative, past basal cell skin cancer with removals, occasional low back pain. Diagnosed with DVT 1 week ago, current PE. History of Any Multi-Drug Resistant Organisms: None Reported Past Surgical History: Appendectomy, Back Surgery, Cholecystectomy, Tonsi llectomy, Tubal Ligation Additional Past Surgical History / Comment(s): 08/20/18 mediastinoscopy with bx, EGD with benign bx, lumbar fusion, basal cell skin cancer removals. Past Anesthesia/Blood Transfusion Reactions: Motion Sickness, Postoperative Nausea & Vomiting (PONV) Past Psychological History: No Psychological Hx Reported Additional Psychological History / Comment(s): Pt resides with family. She is independent. Smoking Status: Former smoker Past Alcohol Use History: None Reported Additional Past Alcohol Use History / Comment(s): Patient states she quit smoking 30 years ago. Past Drug Use History: None Reported - Past Family History Mother Family Medical History: CVA/TIA Additional Family Medical History / Comment(s): Mother is healthy and is in her 70's Father Family Medical History: No Reported History Additional Family Medical History / Comment(s): Father is healthy. He is in his 70s Medications and Allergies Home Medications Medication Instructions Recorded Confirmed Type Omeprazole [PriLOSEC] 20 mg PO AC-BRKFST 08/20/18 02/01/19 History Apixaban [Eliquis] 5 mg PO BID 02/01/19 02/01/19 History Triamterene-Hctz 37.5-25Mg 1 cap PO DAILY 02/01/19 02/01/19 History [Dyazide 37.5-25 Capsule] traMADol HCL [Ultram] 50 mg PO TID PRN 02/01/19 02/01/19 History Allergies Allergy/AdvReac Type Severity Reaction Status Date / Time adhesive tape Allergy BLISTERS Verified 02/01/19 15:00 AND RED SKIN FROM TAPE Physical Exam Vitals: Vital Signs Temp Pulse Pulse Resp BP BP Pulse Ox 02/02/19 16:00 98.5 F 89 31 H 161/72 95 02/02/19 14:00 97.7 F 85 23 154/92 02/02/19 12:00 136/81 02/02/19 10:00 81 17 136/81 02/02/19 08:00 97.7 F 88 16 138/89 95 02/02/19 06:00 76 14 141/89 93 L 02/02/19 04:01 97.8 F 84 17 149/87 93 L 02/02/19 03:30 81 17 94 L 02/02/19 03:00 77 18 94 L 02/02/19 02:30 87 19 151/91 95 02/02/19 00:00 93 16 136/87 96 02/01/19 20:00 98.1 F 98 20 146/103 98 Intake and Output 02/02/19 02/02/19 02/02/19 06:59 14:59 22:59 Intake Total 145.288 306 7168 Output Total 1500 Balance 145.763 575 600 Intake: IV 75 NS 75 Intake, IV Titration 145.763 0 600 Amount Heparin Sod,Pork in 0.45% 145.763 0 NaCl 25,000 unit In 0.45 % NaCl 1 250ml.bag @ 18 UNITS/KG/HR 19.922 mls/hr IV .[id number] [facility] Rx#: [id number] Sodium Chloride 0.9% 1, 600 000 ml @ 75 mls/hr IV . [id number] [facility] Rx#:[id number] Oral 500 1500 Output: Urine 1500 Other: Voiding Method Toilet Toilet Bedpan Bedpan # Voids 1 1 Weight 112 kg - Constitutional General appearance: no acute distress - EENT Eyes: EOMI, PERRLA ENT: hearing grossly normal, normal oropharynx - Neck Neck: no lymphadenopathy Thyroid: bilateral: normal size - Respiratory Respiratory: bilateral: CTA - Cardiovascular Rhythm: regular Heart sounds: normal: S1, S2 - Gastrointestinal General gastrointestinal: normal bowel sounds, soft - Integumentary Integumentary: normal - Neurologic Neurologic: CNII-XII intact - Musculoskeletal Musculoskeletal: strength equal bilaterally - Psychiatric Psychiatric: A&O x's 3, appropriate affect Results CBC & Chem 7: 02/02/19 08:19 02/02/19 08:19 Labs: Abnormal Lab Results - Last 24 Hours (Table) 02/01/19 02/02/19 02/02/19 Range/Units 23:38 02:00 08:19 APTT >200.0 H* (22.0-30.0) sec Sodium 136 L (137-145) mmol/L Carbon Dioxide 20 L (22-30) mmol/L BUN 21 H (7-17) mg/dL Glucose 222 H (74-99) mg/dL POC Glucose (mg/dL) 179 H (75-99) mg/dL AST 69 H (14-36) U/L ALT 73 H (9-52) U/L 02/02/19 02/02/19 Range/Units 08:19 16:16 APTT 112.8 H* 56.0 H (22.0-30.0) sec Sodium (137-145) mmol/L Carbon Dioxide (22-30) mmol/L BUN (7-17) mg/dL Glucose (74-99) mg/dL POC Glucose (mg/dL) (75-99) mg/dL AST (14-36) U/L ALT (9-52) U/L Comments: Pathology report reviewed, op report reviewed CT scan - abdomen: report reviewed CT scan - chest: report reviewed CT scan - pelvis: report reviewed Venous US: report reviewed Assessment and Plan (1) Pulmonary embolism Narrative/Plan: The patient is presenting with a PE, recent diagnosis of a DVT earlier this month, while on eliquis. The patient did not have a CTA done at the time of diagnosis for DVT. She reports good compliance with her eliquis. Clinically, I do not believe that the PE is a new occurrence. Rates of failure of eliquis are extremely low in the setting of good compliance. It is more likely that the patient had an asymptomatic PE at the time of original diagnosis. Her current symptoms most likely represent fragmentation and distal migration of the smaller clot particles, causing peripheral obstruction in the microvasculature and microinfarcts. The CTA notes that the clots are small and peripheral. The above was discussed with the patient. However as prior CT is not available for comparison, I would recommend that the patient be switched to a different anticoagulant such as xarelto from heparin, when stable, and be discharged on the same. Her thrombus embolism would be considered a provoked event as the patient was on OCPs for a year and half prior to this. With no prior personal or family history hypercoagulable workup is not indicated. She should be anticoagulated for at least 6 months. She has stopped the OCPs. At 6 months we can follow-up and perform risk assessment to see if it would be okay to discontinue anticoagulation Current Visit: Yes Status: Acute Code(s): I26.99 - OTHER PULMONARY EMBOLISM WITHOUT ACUTE COR PULMONALE SNOMED Code(s): 57343774 (2) DVT (deep venous thrombosis) Narrative/Plan: first event, that is felt to be provoked, as noted above. Management plan as described above Current Visit: No Status: Acute Code(s): I82.409 - ACUTE EMBOLISM AND THOMBOS UNSP DEEP VN UNSP LOWER EXTREMITY SNOMED Code(s): 974206781 (3) Mediastinal adenopathy Narrative/Plan: in the setting of DVT/PE this finding would normally raise concern for malignancy. however, this has been present for at least 18 months. Her current CTA notes no new adenopathy and actually some decrease in size of the previously. 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 PET scan in 08/10 showed no abnormal findings elsewhere in the body Therefore at this time this does not appear to be concerning for malignancy. CT of the abdomen and pelvis will be repeated. If negative would not recommend any further workup for malignancy at this time. Patient was encouraged to remain current with age-appropriate cancer screening Current Visit: No Status: Acute Code(s): R59.0 - LOCALIZED ENLARGED LYMPH NODES SNOMED Code(s): 94538393 Plan: Deferred to the admitting service and other consultants for management of her other medical problems
--- NOTE | 2019-02-02 19:59 | ECHOF ---
Referral Reason:Rule out heart disease MEASUREMENTS -------- HEIGHT: 170.2 cm WEIGHT: 111.6 kg BP: 138/89 RVIDd: 3.2 cm (< 3.3) IVSd: 1.1 cm (0.6 - 1.1) LVIDd: 4.5 cm (3.9 - 5.3) LVPWd: 1.3 cm (0.6 - 1.1) IVSs: 1.9 cm LVIDs: 2.3 cm LVPWs: 1.6 cm LAESV Index (A-L): 28.59 ml/m Ao Diam: 3.0 cm (2.0 - 3.7) AV Cusp: 1.5 cm (1.5 - 2.6) LA Diam: 3.7 cm (2.7 - 3.8) MV EXCURSION: 15.965 mm (> 18.000) MV EF SLOPE: 58 mm/s (70 - 150) EPSS: 0.3 cm MV E Bertin: 0.59 m/s MV DecT: 267 ms MV A Bertin: 0.90 m/s MV E/A Ratio: 0.65 RAP: 5.00 mmHg RVSP: 23.28 mmHg FINDINGS -------- Sinus rhythm. This was a technically good study. The left ventricular size is normal. Left ventricular wall thickness is normal. Overall left vent ricular systolic function is normal with, an EF between 55 - 60 %. The right ventricle is normal in size. The left atrial size is normal. The right atrial size is normal. The aortic valve is trileaflet and appears structurally normal. There is trace mitral regurgitation. Mild tricuspid regurgitation present. There is no evidence of pulmonary hypertension. The right v entricular systolic pressure, as measured by Doppler, is 23.28mmHg. Pulmonic valve appears structurally normal. The aortic root size is normal. Normal inferior vena cava with normal inspiratory collapse consistent with estimated right atrial pre ssure of 5 mmHg. There is no pericardial effusion. CONCLUSIONS -------- 1. Sinus rhythm. 2. This was a technically good study. 3. The left ventricular size is normal. 4. Left ventricular wall thickness is normal. 5. Overall left ventricular systolic function is normal with, an EF between 55 - 60 %. 6. The right ventricle is normal in size. 7. The left atrial size is normal. 8. The right atrial size is normal. 9. The aortic valve is trileaflet and appears structurally normal. 10. There is trace mitral regurgitation. 11. Mild tricuspid regurgitation present. 12. There is no evidence of pulmonary hypertension. 13. The right ventricular systolic pressure, as measured by Doppler, is 23.28mmHg. 14. Pulmonic valve appears structurally normal. 15. The aortic root size is normal. 16. Normal inferior vena cava with normal inspiratory collapse consistent with estimated right atrial pressure of 5 mmHg. 17. There is no pericardial effusion. [employer] GRADER SUPERVISOR: Akosua Chatterjee RDCS
[2019-02-02] MEDS: FAMOTIDINE 20 MG TAB PO SCH (21:15)
[2019-02-03 01:40] LABS: Hepatitis A Antibody IgM Non-Reactive (Non-Reactive); Hepatitis B Core IgM Non-Reactive (Non-Reactive)
[2019-02-03 05:06] LABS: Basophils # (A) 0.1 k/uL (0-0.2); Basophils % (A) 1 %; Eosinophils # (A) 0.6 k/uL (0-0.7); Eosinophils % (A) 7 %; HCT 42.1 % (34.0-46.0); HGB 13.5 gm/dL (11.4-16.0); Lymphocytes # (A) 2.1 k/uL (1.0-4.8); Lymphocytes % (A) 25 %; MCH 27.9 pg (25.0-35.0); MCV 87.4 fL (80.0-100.0); Mean Platelet Volume 6.2; Monocytes # (A) 0.5 k/uL (0-1.0); Monocytes % (A) 6 %; Neutrophils % (A) 59 %; Platelet Count 430 k/uL (150-450); RBC 4.82 m/uL (3.80-5.40); RDW 14.6 % (11.5-15.5); WBC 8.4 k/uL (3.8-10.6)
[2019-02-03 05:37] LABS: ALT 71 U/L (9-52); AST 90 U/L (14-36); African American GFR (CKD) >90 (>60 ml/min/1.73 sqM); Albumin 3.8 g/dL (3.5-5.0); Alkaline Phosphatase 78 U/L (38-126); Anion Gap 9 mmol/L; Blood Urea Nitrogen 14 mg/dL (7-17); Calcium 9.1 mg/dL (8.4-10.2); Carbon Dioxide 23 mmol/L (22-30); Chloride 102 mmol/L (98-107); Glucose 118 mg/dL (74-99); Magnesium 2.1 mg/dL (1.6-2.3); Potassium 4.7 mmol/L (3.5-5.1); Sodium 134 mmol/L (137-145); Total Bilirubin 0.3 mg/dL (0.2-1.3); Total Protein 6.5 g/dL (6.3-8.2)
[2019-02-03] MEDS: ACETAMINOPHEN TAB 325 MG TAB PO PRN ×2 (06:25→19:38)
[2019-02-03] MEDS: traMADol 50 MG TAB PO PRN ×2 (06:25→19:38)
[2019-02-03] MEDS ORDERED: BUTALB/APAP/CAFF 50-325-40MG TAB PO PRN (07:49)
[2019-02-03] MEDS: TRIAMTERENE-HCTZ 37.5-25MG 1 EACH CAP PO SCH (09:01)
[2019-02-03] MEDS: HEPARIN SOD,PORK IN 0.45% NACL 25,000 UNIT in 0.45% NACL 1 250ML.BAG IV SCH ×2 (09:01→19:39)
[2019-02-03] MEDS: FAMOTIDINE 20 MG TAB PO SCH ×2 (09:01→20:04)
--- NOTE | 2019-02-03 09:33 | CT ---
EXAMINATION TYPE: CT brain wo con DATE OF EXAM: 02/03/2019 HISTORY: Headache. Currently on blood thinners. CT DLP: 1079.4 mGycm. Automated Exposure Control for Dose Reduction was Utilized. TECHNIQUE: CT scan of the head is performed without contrast. COMPARISON: None. FINDINGS: There is no acute intracranial hemorrhage or midline shift identified. Ventricles and sul ci are normal in size. Carrillo-white matter differentiation is fairly well-maintained. Small subdural h ygromas over the bilateral frontal lobes axial image 41 versus mild asymmetric frontal lobe atrophy. The globes are intact and the visualized sinuses are clear. IMPRESSION: No acute intracranial hemorrhage or midline shift.
--- NOTE | 2019-02-03 17:16 | P.PN ---
Subjective Progress Note Date: 02/03/19 Principal diagnosis: PE CT abdomen and Pelvis reviewed. Objective - Vital Signs Vital signs: Vital Signs Temp 97.8 F 02/03/19 12:00 Pulse 81 02/03/19 12:00 Resp 17 02/03/19 12:00 BP 145/91 02/03/19 12:00 Pulse Ox 97 02/03/19 12:00 Intake & Output 02/02/19 02/03/19 02/03/19 18:59 06:59 18:59 Intake Total 2675 666.455 637.276 Output Total 1500 1000 Balance 1175 -333.545 637.276 Weight 111.8 kg Intake: IV 75 10 NS 75 10 Intake, IV Titration 600 166.455 127.276 Amount Heparin Sod,Pork in 0.45% 0 166.455 127.276 NaCl 25,000 unit In 0.45 % NaCl 1 250ml.bag @ 18 UNITS/KG/HR 19.922 mls/hr IV .[id number] [facility] Rx#: [id number] Sodium Chloride 0.9% 1, 600 000 ml @ 75 mls/hr IV . [id number] ONE Rx#:[id number] Oral 2000 500 500 Output: Urine 1500 1000 Other: Voiding Method Toilet Toilet Toilet Bedpan Bedpan Bedpan # Voids 1 1 - Exam - Constitutional General appearance: no acute distress - EENT Eyes: EOMI, PERRLA ENT: hearing grossly normal, normal oropharynx - Neck Neck: no lymphadenopathy Thyroid: bilateral: normal size - Respiratory Respiratory: bilateral: CTA - Cardiovascular Rhythm: regular Heart sounds: normal: S1, S2 - Gastrointestinal General gastrointestinal: normal bowel sounds, soft - Integumentary Integumentary: normal - Neurologic Neurologic: CNII-XII intact - Musculoskeletal Musculoskeletal: strength equal bilaterally - Psychiatric Psychiatric: A&O x's 3, appropriate affect - Labs CBC & Chem 7: 02/03/19 04:36 02/03/19 04:36 Labs: Abnormal Lab Results - Last 24 Hours (Table) 02/03/19 02/03/19 Range/Units 04:36 04:36 APTT 56.9 H (22.0-30.0) sec Sodium 134 L (137-145) mmol/L Glucose 118 H (74-99) mg/dL AST 90 H (14-36) U/L ALT 71 H (9-52) U/L Assessment and Plan Plan: Comments: Pathology report reviewed, op report reviewed CT scan - abdomen: report reviewed CT scan - chest: report reviewed CT scan - pelvis: report reviewed Venous US: report reviewed Assessment and Plan Pulmonary embolism - The patient is presenting with a PE, recent diagnosis of a DVT earlier this month, while on eliquis. The patient did not have a CTA done at the time of diagnosis for DVT. She reports good compliance with her eliquis. Clinically, I do not believe that the PE is a new occurrence. Rates of failure of eliquis are extremely low in the setting of good compliance. It is more likely that the patient had an asymptomatic PE at the time of original diagnosis. Her current symptoms most likely represent fragmentation and distal migration of the smaller clot particles, causing peripheral obstruction in the microvasculature and microinfarcts. The CTA notes that the clots are small and peripheral. The above was discussed with the patient. However as prior CT is not available for comparison, I would recommend that the patient be switched to a different anticoagulant such as xarelto from heparin, when stable, and be discharged on the same. Her thrombus embolism would be considered a provoked event as the patient was on OCPs for a year and half prior to this. - With no prior personal or family history hypercoagulable workup is not indicated. She should be anticoagulated for at least 6 months. She has stopped the OCPs. At 6 months we can follow-up and perform risk assessment to see if it would be okay to discontinue anticoagulation DVT (deep venous thrombosis) - [place] to be provoked Mediastinal adenopathy - Must raise malignancy concern within the setting of DVT/PE, however, this has been present for at least 18 months. - Her current CTA notes no new adenopathy and actually some decrease in size of the previously. 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 - PET scan in 08/10 showed no abnormal findings elsewhere in the body - I have reviewed the repeated CT of the abdomen and pelvis no further work-up other than normal age-related prevention needed at this time.
[2019-02-04] MEDS: ACETAMINOPHEN TAB 325 MG TAB PO PRN ×3 (00:13→10:37)
[2019-02-04] MEDS: traMADol 50 MG TAB PO PRN (05:52)
[2019-02-04 06:03] LABS: HCT 46.7 % (34.0-46.0); HGB 14.7 gm/dL (11.4-16.0); MCH 27.8 pg (25.0-35.0); MCHC 31.4 g/dL (31.0-37.0); MCV 88.4 fL (80.0-100.0); Mean Platelet Volume 6.3; Platelet Count 462 k/uL (150-450); RBC 5.28 m/uL (3.80-5.40); RDW 14.6 % (11.5-15.5); WBC 7.7 k/uL (3.8-10.6)
[2019-02-04 06:24] LABS: ALT 63 U/L (9-52); AST 62 U/L (14-36); African American GFR (CKD) >90 (>60 ml/min/1.73 sqM); Albumin 4.1 g/dL (3.5-5.0); Alkaline Phosphatase 85 U/L (38-126); Anion Gap 10 mmol/L; Blood Urea Nitrogen 16 mg/dL (7-17); Calcium 9.7 mg/dL (8.4-10.2); Carbon Dioxide 22 mmol/L (22-30); Chloride 102 mmol/L (98-107); Glucose 122 mg/dL (74-99); Potassium 4.8 mmol/L (3.5-5.1); Sodium 134 mmol/L (137-145); Total Bilirubin 0.3 mg/dL (0.2-1.3); Total Protein 7.2 g/dL (6.3-8.2)
[2019-02-04] MEDS: FAMOTIDINE 20 MG TAB PO SCH (08:51)
[2019-02-04] MEDS: TRIAMTERENE-HCTZ 37.5-25MG 1 EACH CAP PO SCH (08:51)
[2019-02-04] MEDS: HEPARIN SOD,PORK IN 0.45% NACL 25,000 UNIT in 0.45% NACL 1 250ML.BAG IV SCH (09:06)
--- NOTE | 2019-02-04 11:14 | P.PN ---
Subjective This is a pleasant 48 years old female with past medical history of GERD, hypertension, DVT on anticoagulation. She presents because of chest pain. Patient says that she's been diagnosed with left lower extremity DVT and knee and in the groin when she presented about one week to one week and a half with left leg swelling and induration. At that time patient was discharge on Eliquis 10 mg twice daily for 7 days to be followed up by 5 mg twice a day thereafter. Patient has been adherent to treatment. Today she went to her PCP appointment mitali Teixeira and there was noticed patient is having high blood pressure and heart rate more than 130. Also patient have some dull central chest pain, mild, non-radiating that comes and go. Associated with some nausea for about one week and a half. Her presentation she has CT A of the chest which shows bilateral PE. Patient was started on heparin drip Vitals looks stable, she is mildly tachycardic at times up to 120s. She is saturating 94% on 2 L oxygen. Labs reviewed showing mild leukocytosis of 11.8 K, INR 1.0, creatinine 1.0, with baseline 0.6. The emergency room patient has chest CTA was showing new small degree bilateral pulmonary embolism. EKG showing sinus tachycardia at 118, with left anterior fascicular block and right bundle branch block. QTC 484. And emergency room patient was started on heparin drip and IV fluids. 02/02/2019 Patient is seen and examined today in the ICU as selective overflow. Patient is doing fine. She still have same mild chest pain that comes and go and same like pain which is also controlled. Patient does not look in distress. She is reasonably quietly and dyspneic or tachypneic. No change in her multiple symptoms and she is fully awake. She is not coughing up blood or bleeding from anywhere else. No abdominal pain. Vitas looks stable. Labs from today are still pending however her PTT was high yesterday. Patient remains on heparin drip. With hematology team consult. 02/03/2019 Patient today's awake and alert, her chest pain and leg pain, improving compared to the last couple days. However she is complaining of from headache yesterday and today around her left eye, no blurred vision, no weakness in her ocular muscles. No diplopia. No weakness or abnormal sensation in her extremities. No difficulty swallowing or talking. Patient was started on Fioricet when necessary and CT of the head was ordered since patient is on anticoagulation. History the CT of the abdomen and pelvis was unremarkable. Patient currently on heparin drip. Hematology on the case. CONSTITUTIONAL: No fever, no malaise, no fatigue. HEENT: No recent visual problems or hearing problems. Denied any sore throat. CARDIOVASCULAR: No orthopnea, PND, no palpitations, no syncope. PULMONARY: No shortness of breath, no cough, no hemoptysis. GASTROINTESTINAL: No diarrhea, no nausea, no vomiting, no abdominal pain. Normoactive bowel sounds. NEUROLOGICAL: No headaches, no weakness, no numbness. HEMATOLOGICAL: Denies any bleeding or petechiae. GENITOURINARY: Denies any burning micturition, frequency, or urgency. MUSCULOSKELETAL/RHEUMATOLOGICAL: Denies any joint pain, swelling ENDOCRINE: Denies any polyuria or polydipsia. Medication: Tylenol 650 mg, heparin drip at 250 mm, Ultram 50 mg when necessary. Pepcid 20 mg Objective - Vital Signs Vital signs: Vital Signs Temp 97.8 F 02/03/19 04:00 Pulse 70 02/03/19 04:00 Resp 14 02/03/19 04:00 BP 145/91 02/03/19 04:00 Pulse Ox 98 02/03/19 04:00 Intake & Output 02/02/19 02/03/19 02/03/19 18:59 06:59 18:59 Intake Total 2675 666.455 Output Total 1500 1000 Balance 1175 -333.545 Weight 111.8 kg Intake: IV 75 NS 75 Intake, IV Titration 600 166.455 Amount Heparin Sod,Pork in 0.45% 0 166.455 NaCl 25,000 unit In 0.45 % NaCl 1 250ml.bag @ 18 UNITS/KG/HR 19.922 mls/hr IV .[id number] [facility] Rx#: [id number] Sodium Chloride 0.9% 1, 600 000 ml @ 75 mls/hr IV . [id number] ONE Rx#:[id number] Oral 2000 500 Output: Urine 1500 1000 Other: Voiding Method Toilet Toilet Bedpan Bedpan # Voids 1 - Exam GENERAL: The patient is alert and oriented x3, not in any acute distress. Well developed, well nourished. HEENT: Pupils are round and equally reacting to light. EOMI. No scleral icterus. No conjunctival pallor. Normocephalic, atraumatic. No pharyngeal erythema. No thyromegaly. CARDIOVASCULAR: S1 and S2 present. No murmurs, rubs, or gallops. PULMONARY: Chest is clear to auscultation, no wheezing or crackles. ABDOMEN: Soft, nontender, nondistended, normoactive bowel sounds. No palpable organomegaly. MUSCULOSKELETAL: No joint swelling or deformity. EXTREMITIES: No cyanosis, clubbing, or pedal edema. NEUROLOGICAL: Gross neurological examination did not reveal any focal deficits. SKIN: No rashes. - Labs CBC & Chem 7: 02/03/19 04:36 02/03/19 04:36 Labs: Abnormal Lab Results - Last 24 Hours (Table) 02/02/19 02/02/19 02/02/19 Range/Units 08:19 08:19 16:16 APTT 112.8 H* 56.0 H (22.0-30.0) sec Sodium 136 L (137-145) mmol/L Carbon Dioxide 20 L (22-30) mmol/L BUN 21 H (7-17) mg/dL Glucose 222 H (74-99) mg/dL AST 69 H (14-36) U/L ALT 73 H (9-52) U/L 02/03/19 02/03/19 Range/Units 04:36 04:36 APTT 56.9 H (22.0-30.0) sec Sodium 134 L (137-145) mmol/L Carbon Dioxide (22-30) mmol/L BUN (7-17) mg/dL Glucose 118 H (74-99) mg/dL AST 90 H (14-36) U/L ALT 71 H (9-52) U/L Assessment and Plan Assessment: Bilateral acute pulmonary embolism Recent history of left leg DVT about one week prior to admission Acute kidney injury Dehydration Elevated liver enzymes mildly elevated liver enzymes at 69 and 78, with normal bilirubin. History of DVT History of GERD Hypertension Plan: This is a pleasant 48 years old female who presents because of bilateral pulmonary embolism. Patient was started on heparin drip. Will call hematology consult. Continue with hydration. we will do echocardiogram. Labs and medication were reviewed.. Continue same treatment. Continue with symptomatic treatment. Resume home medication. Monitor lytes and vitals. DVT and GI prophylaxis. Further recommendations of the clinical course of the patient DVT prophylaxis:heparin GI Prophylaxis: Pepcid PT/OT: Pending Prognosis is guarded
[2019-02-04] MEDS: RIVAROXABAN 15 MG TAB PO SCH ×2 (11:21→18:24)
--- NOTE | 2019-02-04 11:25 | P.DS ---
Providers Date of admission: 02/01/19 16:55 Attending physician: Alfredo Cuba MD Consults: 02/01/19 17:05 Consult Physician Routine Consulting Provider: Ruel Rubalcava Consult Reason/Comments: PE Do you want consulting provider notified?: Yes Primary care physician: Beti Teixeira Hospital Course: Diagnoses: Bilateral acute pulmonary embolism, provoked secondary to OCP Recent history of left leg DVT about one week prior to admission. Acute kidney injury, resolved Dehydration, resolved Elevated liver enzymes mildly elevated liver enzymes but trending down with normal bilirubin. Acute hepatitis panel was negative Mediastinal adenopathy History of DVT History of GERD Hypertension Hospital course: This is a pleasant 48 years old female with past medical history of GERD, hypertension, DVT on anticoagulation. She presents because of chest pain. Patient says that she's been diagnosed with left lower extremity DVT and knee and in the groin when she presented about one week to one week and a half with left leg swelling and induration. At that time patient was discharge on Eliquis 10 mg twice daily for 7 days to be followed up by 5 mg twice a day thereafter. Patient has been adherent to treatment. At This admission she went to her PCP appointment with Dr. Teixeira and there was noticed patient is having high blood pressure and heart rate more than 130. Also patient have some dull central ch est pain, mild, non-radiating that comes and go. on Her presentation she has CTA of the chest which shows bilateral PE. Patient was started on heparin drip. Echocardiogram shows ejection fraction of 55-60%, normal right ventricle size. Patient has been evaluated by [facility]wh[facility] bone roller. Patient will be discharged on xarelto . Patient showed interval improvement and her chest pain and leg pain are significantly improved on the day of discharge and patient was referred to be discharged. No other complaints no signs of bleeding. On the day of discharge patient denied dyspnea. No abdominal pain or nausea vomiting. She is starting diet well. No urinary complaints. No fever. No weakness or abnormal sensation. No difficulty talking. Also patient was complaining of from pain behind her left eye, CAT scan of the head was negative for acute event. Stab discussed with ophthalmology team and they wanted to see her in the outpatient setting. Patient was informed that referred to ophthalmology office and she agrees with it. Patient hemodynamically stable. Patient was cleared for discharge by hematology team Problems and management plan were discussed with the patient and he verbalized understanding and acceptance Patient was found stable and can be discharged home however he needs follow-up as an outpatient Gen: patient is a AAOx3, no distress CVS: S1-S2, RRR, no murmur Lungs: B/L CTA, no wheezing Abdomen: soft, no distention, no tenderness, positive bowel sounds Extremity: no leg edema or induration Time spent more than 35 minutes Plan - Discharge Summary Discharge Rx Participant: No New Discharge Prescriptions: New Rivaroxaban [Xarelto Starter Pack] 1 each PO DIRECTED 30 Days #1 pack No Action Omeprazole [PriLOSEC] 20 mg PO AC-BRKFST traMADol HCL [Ultram] 50 mg PO TID PRN PRN Reason: Pain Triamterene-Hctz 37.5-25Mg [Dyazide 37.5-25 Capsule] 1 cap PO DAILY Apixaban [Eliquis] 5 mg PO BID Discharge Medication List Omeprazole [PriLOSEC] 20 mg PO AC-BRKFST 08/20/18 [History] Apixaban [Eliquis] 5 mg PO BID 02/01/19 [History] Triamterene-Hctz 37.5-25Mg [Dyazide 37.5-25 Capsule] 1 cap PO DAILY 02/01/19 [History] traMADol HCL [Ultram] 50 mg PO TID PRN 02/01/19 [History] Rivaroxaban [Xarelto Starter Pack] 1 each PO DIRECTED 30 Days #1 pack 02/04/19 [Rx] Follow up Appointment(s)/Referral(s): Ruel Rubalcava MD [STAFF PHYSICIAN] - 6 Weeks (follow up with hematology in 6 weeks to 3 months ) Beti Teixeira MD [Primary Care Provider] - 1-2 days Discharge Disposition: HOME SELF-CARE
[2019-02-04 12:09] VITALS: PULSE 91
[2019-02-04 14:40] LABS: Glucose,Whole Blood 173 mg/dL (75-99)
[2019-02-04 17:53] VITALS: BP 157/96; RESP 20; TEMP 98
== END 2019-02-04 18:48 | disposition home or self-care (01) | DRG 176 ==
LOC: EC 14:35 → 3SCARD 16:55 → 2SICU 02-02 00:26
PROVIDERS: ADMIT Internal Medicine; ATTEND Internal Medicine
DX: I26.99 Other pulmonary embolism without acute cor pulmonale (principal); I45.2 Bifascicular block; I82.402 Acute embolism and thrombosis of unspecified deep veins of left lower extremity; N17.9 Acute kidney failure, unspecified; D72.829 Elevated white blood cell count, unspecified; E86.0 Dehydration; I10 Essential (primary) hypertension; I45.10 Unspecified right bundle-branch block; K21.9 Gastro-esophageal reflux disease without esophagitis; Z79.01 Long term (current) use of anticoagulants; Z85.828 Personal history of other malignant neoplasm of skin; Z87.891 Personal history of nicotine dependence; Z88.8 Allergy status to other drugs, medicaments and biological substances; Z90.49 Acquired absence of other specified parts of digestive tract; R59.0 Localized enlarged lymph nodes
CPT/HCPCS: 36415; 70450; 71275; 74177; 80053; 80074; 83735; 84484; 85025; 85027; 85610; 85730; 93005; 93306; 96365; 96366; 96376; 99291

== ENCOUNTER 2019-04-04 15:08 | Observation (INO) | payer OTHER ==
[2019-04-04] MEDS ORDERED: SODIUM CHLORIDE 0.9% 500 ML IV STA (15:53)
--- NOTE | 2019-04-04 16:54 | ED ---
General Adult HPI - General Chief complaint: Weakness Stated complaint: weakness/lightheaded Time Seen by Provider: 04/04/19 15:52 Source: patient Mode of arrival: wheelchair Limitations: no limitations - History of Present Illness Initial comments: Dictation was produced using [employer] dictation software. please excuse any grammatical, word or spelling errors. Chief Complaint: 48-year-old female currently undergoing treatment of pulmonary emboli presents with shortness of breath and generalized weakness. History of Present Illness: 48-year-old female she is currently undergoing treatment for DVT and PE. She is currently on Xarelto. She was diagnosed with PE DVT back in January of this year. Today she was instructed by her primary care physician, to the emergency department. States that her symptoms started 3 week s ago with an episode of chest pain the last approximate 1 day. At that time she described it as sharp and worse with inspiration. Her chest pain went away after 24 hours. Over the progressive Several days she states that her symptoms of weakness increased. She reports that she currently is still short of breath. She reports that she has been having worsening appetite. She reports that she is able to drink however is not able to eat due to significant postprandial nausea. Patient denies any polyuria. She does feel slightly nauseated. States her weakness is so bad that she is unable to ambulate. She was generally weak denies any focal deficits. She reports that her DVT is located to the left upper extremity The ROS documented in this emergency department record has been reviewed and confirmed by me. Those systems with pertinent positive or negative responses have been documented in the HPI. All other systems are other negative and/or noncontributory. PHYSICAL EXAM: General Impression: Alert and oriented x3, not in acute distress HEENT: Normocephalic atraumatic, extra-ocular movements intact, pupils equal and reactive to light bilaterally, mucous membranes moist. Cardiovascular: Tachycardic Chest: Lungs clear to auscultation bilaterally, no rhonchi, no wheeze, no rales Abdomen: Bowel sounds present, abdomen soft, non-tender, non-distended, no organomegaly Musculoskeletal: Pulses present and equal in all extremities, no peripheral edema, left lower extremity calf tenderness Motor: no focal deficits noted Neurological: CN II-XII grossly intact, no focal motor or sensory deficits noted Skin: Intact with no visualized rashes Psych: Normal affect and mood ED course: 48-year-old female presents with generalized weakness resolved episodic chest pain 3 weeks ago and poor appetite. Upon arrival shows heart rate of 15, rest of vital signs within acceptable limits. Laboratory evaluation obtained. CBC, coag panel unremarkable. Metabolic panel shows sodium 132. There is an anion gap of 17 with a carbon dioxide of 22. Glucose 579. Urinalysis shows 4+ glucose with 172 white blood cells. Urinalysis positive for urinary tract infection. Patient has no history of diabetes. Clinical presentation consistent with new-onset diabetes. Patient is mildly acidotic however it's likely from severe dehydration instead of diabetic ketoacidosis. Patient's labs does not show acidosis. Nonetheless patient is given multiple boluses of intravenous fluid. She is reevaluated at bedside and found to be stable medical condition. Blood sugar was checked with the level 361 after 10 units of insulin and intravenous fluids. Patient given 1 g of Rocephin. Patient be admitted for urinary tract infection and no evidence of diabetes. EKG interpretation: Ventricular rate quantitative sinus tachycardia,. Interval 164, respiratory 20, QTc 505. No AL prolongation, no QTC prolongation, no ST or T-wave changes noted. EKG compared to 02/01/2019 showing no changes. Overall, this EKG is unremarkable - Related Data Home Medications Medication Instructions Recorded Confirmed Omeprazole [PriLOSEC] 20 mg PO DAILY 08/20/18 04/04/19 Triamterene-Hctz 37.5-25Mg 1 cap PO DAILY 02/01/19 04/04/19 [Dyazide 37.5-25 Capsule] Rivaroxaban [Xarelto] 20 mg PO DAILY 04/04/19 04/04/19 amLODIPine [Norvasc] 5 mg PO DAILY 04/04/19 04/04/19 Allergies Allergy/AdvReac Type Severity Reaction Status Date / Time adhesive tape Allergy BLISTERS Verified 04/04/19 16:06 AND RED SKIN FROM TAPE Review of Systems ROS Statement: Those systems with pertinent positive or pertinent negative responses have been documented in the HPI. ROS Other: All systems not noted in ROS Statement are negative. Past Medical History Past Medical History: Cancer, Deep Vein Thrombosis (DVT), GERD/Reflux, Hypertension, Pulmonary Embolus (PE) Additional Past Medical History / Comment(s): Mediastinal adenopathy - had mediastinoscopy 08/20/18 biopsy negative, past basal cell skin cancer with removals, occasional low back pain. Diagnosed with DVT 1 week ago, current PE. History of Any Multi-Drug Resistant Organisms: None Reported Past Surgical History: Appendectomy, Back Surgery, Cholecystectomy, Tonsillect kevin, Tubal Ligation Additional Past Surgical History / Comment(s): 08/20/18 mediastinoscopy with bx, EGD with benign bx, lumbar fusion, basal cell skin cancer removals. Past Anesthesia/Blood Transfusion Reactions: Motion Sickness, Postoperative Nausea & Vomiting (PONV) Past Psychological History: No Psychological Hx Reported Smoking Status: Former smoker Past Alcohol Use History: None Reported Past Drug Use History: None Reported - Past Family History Mother Family Medical History: CVA/TIA Additional Family Medical History / Comment(s): Mother is healthy and is in her 70's Father Family Medical History: No Reported History Additional Family Medical History / Comment(s): Father is healthy. He is in his 70s General Exam Limitations: no limitations Course Vital Signs 04/04/19 04/04/19 04/04/19 15:16 16:21 17:43 Temperature 98.2 F Pulse Rate 111 H 105 H 98 Respiratory 18 16 16 Rate Blood Pressure 146/98 138/87 137/90 O2 Sat by Pulse 99 99 99 Oximetry 04/04/19 18:51 Temperature Pulse Rate 86 Respiratory 16 Rate Blood Pressure 147/83 O2 Sat by Pulse 99 Oximetry Medical Decision Making - Lab Data Result diagrams: 04/04/19 16:02 04/04/19 16:02 Lab Results 04/04/19 04/04/19 04/04/19 Range/Units 16:02 16:02 16:02 WBC 9.4 (3.8-10.6) k/uL RBC 5.15 (3.80-5.40) m/uL Hgb 15.4 (11.4-16.0) gm/dL Hct 45.6 (34.0-46.0) % MCV 88.7 (80.0-100.0) fL MCH 29.8 (25.0-35.0) pg MCHC 33.7 (31.0-37.0) g/dL RDW 15.2 (11.5-15.5) % Plt Count 408 (150-450) k/uL Neutrophils % 68 % Lymphocytes % 20 % Monocytes % 5 % Eosinophils % 3 % Basophils % 1 % Neutrophils # 6.4 (1.3-7.7) k/uL Lymphocytes # 1.9 (1.0-4.8) k/uL Monocytes # 0.5 (0-1.0) k/uL Eosinophils # 0.3 (0-0.7) k/uL Basophils # 0.1 (0-0.2) k/uL PT (9.0-12.0) sec INR (<1.2) APTT (22.0-30.0) sec Sodium 132 L (137-145) mmol/L Potassium 4.2 (3.5-5.1) mmol/L Chloride 93 L (98-107) mmol/L Carbon Dioxide 22 (22-30) mmol/L Anion Gap 17 mmol/L BUN 23 H (7-17) mg/dL Creatinine 0.99 (0.52-1.04) mg/dL Est GFR (CKD-EPI)AfAm 77 (>60 ml/min/1.73 sqM) Est GFR (CKD-EPI)NonAf 67 (>60 ml/min/1.73 sqM) Glucose 579 H* (74-99) mg/dL POC Glucose (mg/dL) (75-99) mg/dL POC Glu Medicinal Plant Picker ID Calcium 10.8 H (8.4-10.2) mg/dL Total Bilirubin 0.6 (0.2-1.3) mg/dL AST 59 H (14-36) U/L ALT 60 H (9-52) U/L Alkaline Phosphatase 116 (38-126) U/L Troponin I (0.000-0.034) ng/mL NT-Pro-B Natriuret Pep 16 pg/mL Total Protein 8.4 H (6.3-8.2) g/dL Albumin 4.9 (3.5-5.0) g/dL Urine Color Urine Appearance (Clear) Urine pH (5.0-8.0) Ur Specific [place] (1.001-1.035) Urine Protein (Negative) Urine Glucose (UA) (Negative) Urine Ketones (Negative) Urine Blood (Negative) Urine Nitrite (Negative) Urine Bilirubin (Negative) Urine Urobilinogen (<2.0) mg/dL Ur Leukocyte Esterase (Negative) Urine RBC (0-5) /hpf Urine WBC (0-5) /hpf Urine WBC Clumps (None) /hpf Ur Squamous Epith Cells (0-4) /hpf Urine Bacteria (None) /hpf Urine Mucus (None) /hpf 04/04/19 04/04/19 04/04/19 Range/Units 16:02 16:02 16:02 WBC (3.8-10.6) k/uL RBC (3.80-5.40) m/uL Hgb (11.4-16.0) gm/dL Hct (34.0-46.0) % MCV (80.0-100.0) fL MCH (25.0-35.0) pg MCHC (31.0-37.0) g/dL RDW (11.5-15.5) % Plt Count (150-450) k/uL Neutrophils % % Lymphocytes % % Monocytes % % Eosinophils % % Basophils % % Neutrophils # (1.3-7.7) k/uL Lymphocytes # (1.0-4.8) k/uL Monocytes # (0-1.0) k/uL Eosinophils # (0-0.7) k/uL Basophils # (0-0.2) k/uL PT 11.1 (9.0-12.0) sec INR 1.0 (<1.2) APTT 29.5 (22.0-30.0) sec Sodium (137-145) mmol/L Potassium (3.5-5.1) mmol/L Chloride (98-107) mmol/L Carbon Dioxide (22-30) mmol/L Anion Gap mmol/L BUN (7-17) mg/dL Creatinine (0.52-1.04) mg/dL Est GFR (CKD-EPI)AfAm (>60 ml/min/1.73 sqM) Est GFR (CKD-EPI)NonAf (>60 ml/min/1.73 sqM) Glucose (74-99) mg/dL POC Glucose (mg/dL) (75-99) mg/dL POC Glu Medicinal Plant Picker ID Calcium (8.4-10.2) mg/dL Total Bilirubin (0.2-1.3) mg/dL AST (14-36) U/L ALT (9-52) U/L Alkaline Phosphatase (38-126) U/L Troponin I <0.012 (0.000-0.034) ng/mL NT-Pro-B Natriuret Pep pg/mL Total Protein (6.3-8.2) g/dL Albumin (3.5-5.0) g/dL Urine Color Light Yellow Urine Appearance Cloudy H (Clear) Urine pH 5.5 (5.0-8.0) Ur Specific [place] 1.034 (1.001-1.035) Urine Protein Negative (Negative) Urine Glucose (UA) 4+ H (Negative) Urine Ketones 1+ H (Negative) Urine Blood Trace H (Negative) Urine Nitrite Negative (Negative) Urine Bilirubin Negative (Negative) Urine Urobilinogen <2.0 (<2.0) mg/dL Ur Leukocyte Esterase Large H (Negative) Urine RBC 9 H (0-5) /hpf Urine WBC 172 H (0-5) /hpf Urine WBC Clumps Few H (None) /hpf Ur Squamous Epith Cells 17 H (0-4) /hpf Urine Bacteria Few H (None) /hpf Urine Mucus Rare H (None) /hpf 04/04/19 04/04/19 Range/Units 18:03 18:38 WBC (3.8-10.6) k/uL RBC (3.80-5.40) m/uL Hgb (11.4-16.0) gm/dL Hct (34.0-46.0) % MCV (80.0-100.0) fL MCH (25.0-35.0) pg MCHC (31.0-37.0) g/dL RDW (11.5-15.5) % Plt Count (150-450) k/uL Neutrophils % % Lymphocytes % % Monocytes % % Eosinophils % % Basophils % % Neutrophils # (1.3-7.7) k/uL Lymphocytes # (1.0-4.8) k/uL Monocytes # (0-1.0) k/uL Eosinophils # (0-0.7) k/uL Basophils # (0-0.2) k/uL PT (9.0-12.0) sec INR (<1.2) APTT (22.0-30.0) sec Sodium (137-145) mmol/L Potassium (3.5-5.1) mmol/L Chloride (98-107) mmol/L Carbon Dioxide (22-30) mmol/L Anion Gap mmol/L BUN (7-17) mg/dL Creatinine (0.52-1.04) mg/dL Est GFR (CKD-EPI)AfAm (>60 ml/min/1.73 sqM) Est GFR (CKD-EPI)NonAf (>60 ml/min/1.73 sqM) Glucose (74-99) mg/dL POC Glucose (mg/dL) 430 H 361 H (75-99) mg/dL POC Glu Medicinal Plant Picker ID Wiseheart, Elsy Wiseheart, Elsy Calcium (8.4-10.2) mg/dL Total Bilirubin (0.2-1.3) mg/dL AST (14-36) U/L ALT (9-52) U/L Alkaline Phosphatase (38-126) U/L Troponin I (0.000-0.034) ng/mL NT-Pro-B Natriuret Pep pg/mL Total Protein (6.3-8.2) g/dL Albumin (3.5-5.0) g/dL Urine Color Urine Appearance (Clear) Urine pH (5.0-8.0) Ur Specific [place] (1.001-1.035) Urine Protein (Negative) Urine Glucose (UA) (Negative) Urine Ketones (Negative) Urine Blood (Negative) Urine Nitrite (Negative) Urine Bilirubin (Negative) Urine Urobilinogen (<2.0) mg/dL Ur Leukocyte Esterase (Negative) Urine RBC (0-5) /hpf Urine WBC (0-5) /hpf Urine WBC Clumps (None) /hpf Ur Squamous Epith Cells (0-4) /hpf Urine Bacteria (None) /hpf Urine Mucus (None) /hpf Disposition Clinical Impression: Dehydration, Diabetes mellitus, new onset, UTI (urinary tract infection) Disposition: ADMITTED IP TO THIS HOSP Condition: Fair Referrals: Beti Teixeira MD [Primary Care Provider] - 1-2 days Decision Time: 19:44
[2019-04-04 17:05] LABS: Basophils # (A) 0.1 k/uL (0-0.2); Basophils % (A) 1 %; Eosinophils # (A) 0.3 k/uL (0-0.7); Eosinophils % (A) 3 %; HCT 45.6 % (34.0-46.0); HGB 15.4 gm/dL (11.4-16.0); Lymphocytes # (A) 1.9 k/uL (1.0-4.8); Lymphocytes % (A) 20 %; MCH 29.8 pg (25.0-35.0); MCHC 33.7 g/dL (31.0-37.0); MCV 88.7 fL (80.0-100.0); Mean Platelet Volume 6.8; Monocytes # (A) 0.5 k/uL (0-1.0); Monocytes % (A) 5 %; Neutrophils # (A) 6.4 k/uL (1.3-7.7); Neutrophils % (A) 68 %; Platelet Count 408 k/uL (150-450); RBC 5.15 m/uL (3.80-5.40); RDW 15.2 % (11.5-15.5); WBC 9.4 k/uL (3.8-10.6)
[2019-04-04 17:12] LABS: Partial Thromboplastin Time 29.5 sec (22.0-30.0); Prothrombin Time 11.1 sec (9.0-12.0)
[2019-04-04 17:18] LABS: Albumin 4.9 g/dL (3.5-5.0); Calcium 10.8 mg/dL (8.4-10.2); Potassium 4.2 mmol/L (3.5-5.1); Total Bilirubin 0.6 mg/dL (0.2-1.3); Total Protein 8.4 g/dL (6.3-8.2)
[2019-04-04] MEDS ORDERED: SODIUM CHLORIDE 0.9% 1,000 ML IV STA ×3 (17:21→19:34)
[2019-04-04] MEDS ORDERED: INSULIN REGULAR 100 UNIT/ML VIAL IV ONE ×2 (17:22→19:34)
--- NOTE | 2019-04-04 18:22 | XR ---
EXAMINATION TYPE: XR chest 2V DATE OF EXAM: 04/04/2019 COMPARISON: 09/02/2018 HISTORY: Weakness TECHNIQUE: Frontal and lateral views of the chest are obtained. FINDINGS: Heart and mediastinum are normal. Lungs are clear of infiltrate. There are chest leads. Co stophrenic angles are clear. Bony thorax is intact. IMPRESSION: No active cardiopulmonary disease. Normal heart. No change.
[2019-04-04 18:23] LABS: Glucose,Whole Blood 430 mg/dL (75-99)
[2019-04-04 18:59] LABS: Glucose,Whole Blood 361 mg/dL (75-99)
[2019-04-04 19:11] LABS: Appearance,Urine Cloudy (Clear); Bacteria,Urine Few /hpf; Bilirubin,Urine Negative (Negative); Blood,Urine Trace (Negative); Color,Urine Light Yellow; Glucose,Urine (UA) 4+ (Negative); Ketones,Urine 1+ (Negative); Leukocyte Esterase,Urine Large (Negative); Mucus,Urine Rare /hpf; Nitrite,Urine Negative (Negative); PH, Urine 5.5 (5.0-8.0); Protein,Urine Negative (Negative); RBC,Urine 9 /hpf (0-5); Specific Gravity,Urine 1.034 (1.001-1.035); Squamous Epithelial Cell,Urine 17 /hpf (0-4); Urobilinogen,Urine <2.0 mg/dL (<2.0)
[2019-04-04] MEDS ORDERED: NALOXONE 0.4 MG/ML 1 ML VIAL IV PRN (19:36)
[2019-04-04 20:17] LABS: Glucose,Whole Blood 332 mg/dL (75-99)
[2019-04-05 00:17] LABS: Glucose,Whole Blood 337 mg/dL (75-99)
[2019-04-05 04:28] LABS: Hemoglobin A1C 10.3 % (4.0-6.0)
[2019-04-05 07:32] LABS: Glucose,Whole Blood 373 mg/dL (75-99)
[2019-04-05] MEDS: INSULIN ASPART (NovoLOG) 100 UNIT/ML VIAL SQ SCH ×3 (07:44→17:34)
[2019-04-05] MEDS ORDERED: RIVAROXABAN 20 MG TAB PO SCH (09:00)
[2019-04-05 11:24] LABS: Glucose,Whole Blood 269 mg/dL (75-99)
[2019-04-05 12:04] VITALS: BP 135/87; PULSE 91; RESP 16; TEMP 97.5
[2019-04-05] MEDS ORDERED: ACETAMINOPHEN TAB 325 MG TAB PO PRN (13:26)
[2019-04-05 15:04] VITALS: BMI 40.3
[2019-04-05 17:10] LABS: Glucose,Whole Blood 274 mg/dL (75-99)
--- NOTE | 2019-04-05 17:24 | P.HPIM ---
History of Present Illness 48-year-old wasn't female came in with complaints of generalized weakness and shortness of breath was recently treated for pulmonary embolism, polyuria or polydipsia. Patient is found to have highly elevated blood sugars going up to 500, along with hyponatremia from of elevated blood sugars. She felt slightly nauseated as well.. Patient blood sugars have come down received total of around the 25 units of insulin. Patient is a newly diagnosed diabetic. She is also on diuretic therapy at home. Review of Systems REVIEW OF SYSTEMS: CONSTITUTIONAL: No fever, no malaise, no fatigue. HEENT: No recent visual problems or hearing problems. Denied any sore throat. CARDIOVASCULAR: No chest pain, orthopnea, PND, no palpitations, no syncope. PULMONARY: No no cough, no hemoptysis. GASTROINTESTINAL: No diarrhea, no nausea, no vomiting, no abdominal pain. NEUROLOGICAL: No headaches, no weakness, no numbness. HEMATOLOGICAL: Denies any bleeding or petechiae. GENITOURINARY: Denies any burning micturition, frequency, or urgency. MUSCULOSKELETAL/RHEUMATOLOGICAL: Denies any joint pain, swelling, or any muscle pain. ENDOCRINE: as mentioned in HPI The rest of the 14-point review of systems is negative. Past Medical History Past Medical History: Cancer, Deep Vein Thrombosis (DVT), GERD/Reflux, Hypertension, Pulmonary Embolus (PE) Additional Past Medical History / Comment(s): Mediastinal adenopathy - had mediastinoscopy 08/20/18 biopsy negative, past basal cell skin cancer with removals, occasional low back pain. Diagnosed with DVT january 2019, current PE. History of Any Multi-Drug Resistant Organisms: None Reported Past Surgical History: Appendectomy, Back Surgery, Cholecystectomy, Tonsillectomy, Tubal Ligation Additional Past Surgical History / Comment(s): 08/20/18 mediastinoscopy with bx, EGD with benign bx, lumbar fusion, basal cell skin cancer removals. Past Anesthesia/Blood Transfusion Reactions: Motion Sickness, Postoperative Nausea & Vomiting (PONV) Past Psychological History: No Psychological Hx Reported Additional Psychological History / Comment(s): Pt resides with family. She is independent. Smoking Status: Former smoker Past Alcohol Use History: None Reported Additional Past Alcohol Use History / Comment(s): Patient states she quit smoking 30 years ago. Past Drug Use History: None Reported - Past Family History Mother Family Medical History: CVA/TIA Additional Family Medical History / Comment(s): Mother is healthy and is in her 70's Father Family Medical History: No Reported History Additional Family Medical History / Comment(s): Father is healthy. He is in his 70s Medications and Allergies Home Medications Medication Instructions Recorded Confirmed Type Omeprazole [PriLOSEC] 20 mg PO DAILY 08/20/18 04/04/19 History Rivaroxaban [Xarelto] 20 mg PO DAILY 04/04/19 04/04/19 History amLODIPine [Norvasc] 5 mg PO DAILY 04/04/19 04/04/19 History Insulin Glargine,Hum.rec.anlog 18 unit SQ DAILY #1 each 04/05/19 Rx [Lantus Solostar] Losartan [Cozaar] 25 mg PO DAILY #30 tab 04/05/19 Rx metFORMIN HCL [Glucophage] 500 mg PO BID #60 tab 04/05/19 Rx Allergies Allergy/AdvReac Type Severity Reaction Status Date / Time adhesive tape Allergy BLISTERS Verified 04/04/19 16:06 AND RED SKIN FROM TAPE Physical Exam Vitals: Vital Signs Temp Pulse Pulse Pulse Resp BP BP 04/05/19 11:41 97.5 F L 91 16 04/05/19 06:11 97.6 F 82 18 117/75 04/04/19 23:00 93 18 144/85 04/04/19 20:28 98 17 136/86 04/04/19 18:51 86 16 147/83 04/04/19 17:43 98 16 137/90 BP Pulse Ox 04/05/19 11:41 135/87 95 04/05/19 06:11 96 04/04/19 23:00 98 04/04/19 20:28 98 04/04/19 18:51 99 04/04/19 17:43 99 Intake and Output 04/05/19 04/05/19 04/05/19 06:59 14:59 22:59 Intake Total 720 200 Balance 720 200 Intake: Intake, IV Titration 720 200 Amount Sodium Chloride 0.9% 1, 720 000 ml @ 120 mls/hr IV . Q8H20M STA Rx#:[id number] cefTRIAXone 1 gm In 200 Sodium Chloride 0.9% 50 ml @ 100 mls/hr IVPB ONCE STA Rx#:[id number] Other: Voiding Method Toilet Toilet # Voids 1 Weight 113.398 kg PHYSICAL EXAMINATION: GENERAL: The patient is alert and oriented x3, not in any acute distress. Well developed, well nourished. HEENT: Pupils are round and equally reacting to light. EOMI. No scleral icterus. No conjunctival pallor. Normocephalic, atraumatic. No pharyngeal erythema. No thyromegaly. CARDIOVASCULAR: S1 and S2 present. No murmurs, rubs, or gallops. PULMONARY: Chest is clear to auscultation, no wheezing or crackles. ABDOMEN: Soft, nontender, nondistended, normoactive bowel sounds. No palpable organomegaly. MUSCULOSKELETAL: No joint swelling or deformity. EXTREMITIES: No cyanosis, clubbing, or pedal edema. NEUROLOGICAL: Gross neurological examination did not reveal any focal deficits. SKIN: No rashes. Results CBC & Chem 7: 04/04/19 16:02 04/04/19 16:02 Labs: Abnormal Lab Results - Last 24 Hours (Table) 04/04/19 04/04/19 04/04/19 Range/Units 16:02 16:02 16:02 Sodium 132 L (137-145) mmol/L Chloride 93 L (98-107) mmol/L BUN 23 H (7-17) mg/dL Glucose 579 H* (74-99) mg/dL POC Glucose (mg/dL) (75-99) mg/dL Hemoglobin A1c 10.3 H (4.0-6.0) % Calcium 10.8 H (8.4-10.2) mg/dL AST 59 H (14-36) U/L ALT 60 H (9-52) U/L Total Protein 8.4 H (6.3-8.2) g/dL Urine Appearance Cloudy H (Clear) Urine Glucose (UA) 4+ H (Negative) Urine Ketones 1+ H (Negative) Urine Blood Trace H (Negative) Ur Leukocyte Esterase Large H (Negative) Urine RBC 9 H (0-5) /hpf Urine WBC 172 H (0-5) /hpf Urine WBC Clumps Few H (None) /hpf Ur Squamous Epith Cells 17 H (0-4) /hpf Urine Bacteria Few H (None) /hpf Urine Mucus Rare H (None) /hpf 04/04/19 04/04/19 04/04/19 Range/Units 18:03 18:38 19:57 Sodium (137-145) mmol/L Chloride (98-107) mmol/L BUN (7-17) mg/dL Glucose (74-99) mg/dL POC Glucose (mg/dL) 430 H 361 H 332 H (75-99) mg/dL Hemoglobin A1c (4.0-6.0) % Calcium (8.4-10.2) mg/dL AST (14-36) U/L ALT (9-52) U/L Total Protein (6.3-8.2) g/dL Urine Appearance (Clear) Urine Glucose (UA) (Negative) Urine Ketones (Negative) Urine Blood (Negative) Ur Leukocyte Esterase (Negative) Urine RBC (0-5) /hpf Urine WBC (0-5) /hpf Urine WBC Clumps (None) /hpf Ur Squamous Epith Cells (0-4) /hpf Urine Bacteria (None) /hpf Urine Mucus (None) /hpf 04/05/19 04/05/19 04/05/19 Range/Units 00:15 07:30 11:23 Sodium (137-145) mmol/L Chloride (98-107) mmol/L BUN (7-17) mg/dL Glucose (74-99) mg/dL POC Glucose (mg/dL) 337 H 373 H 269 H (75-99) mg/dL Hemoglobin A1c (4.0-6.0) % Calcium (8.4-10.2) mg/dL AST (14-36) U/L ALT (9-52) U/L Total Protein (6.3-8.2) g/dL Urine Appearance (Clear) Urine Glucose (UA) (Negative) Urine Ketones (Negative) Urine Blood (Negative) Ur Leukocyte Esterase (Negative) Urine RBC (0-5) /hpf Urine WBC (0-5) /hpf Urine WBC Clumps (None) /hpf Ur Squamous Epith Cells (0-4) /hpf Urine Bacteria (None) /hpf Urine Mucus (None) /hpf 04/05/19 Range/Units 17:10 Sodium (137-145) mmol/L Chloride (98-107) mmol/L BUN (7-17) mg/dL Glucose (74-99) mg/dL POC Glucose (mg/dL) 274 H (75-99) mg/dL Hemoglobin A1c (4.0-6.0) % Calcium (8.4-10.2) mg/dL AST (14-36) U/L ALT (9-52) U/L Total Protein (6.3-8.2) g/dL Urine Appearance (Clear) Urine Glucose (UA) (Negative) Urine Ketones (Negative) Urine Blood (Negative) Ur Leukocyte Esterase (Negative) Urine RBC (0-5) /hpf Urine WBC (0-5) /hpf Urine WBC Clumps (None) /hpf Ur Squamous Epith Cells (0-4) /hpf Urine Bacteria (None) /hpf Urine Mucus (None) /hpf Microbiology - Last 24 Hours (Table) 04/04/19 16:02 Urine Culture - Preliminary Urine,Voided Thrombosis Risk Factor Assmnt - Choose All That Apply Any of the Below Risk Factors Present?: Yes Each Factor Represents 1 point: Age 41-60 years, Obesity (BMI >25) Other Risk Factors: Yes Each Risk Factor Represents 3 Points: History of DVT/PE Other congenital or acquired thrombophilia - If yes, enter type in comment: No Thrombosis Risk Factor Assessment Total Risk Factor Score: 5 Thrombosis Risk Factor Assessment Level: High Risk Assessment and Plan Plan: -hyperglycemia nearly diagnosed type II diabetic. Patient's hemoglobin A1c is 10.3. Patient the received diuretic education along with nutritional counseling. Patient will be started on 18 units of long-acting insulin along with metformin twice a day follow-up with PCP as an outpatient patient need to check her blood sugars twice a daydate shortness of breath that is secondary to hypovolemia and possibleketosis although it not believe patient is in DKA. -Asymptomatic bacteriuria which will not require any antibiotics -pseudohyponatremia from hyperglycemia, patient is also on diuretics which will be discussed in patient was started on losartan and patient had cough in the past with lisinopril. -hypertension: Patient will be started on losartan and diuretic therapy will be discontinued patient blood pressures are well controlled at this time may consider discontinuing amlodipine down the line and increasing the dose of losartan -recent DVT patient will continue anticoagulation -Gastroesophageal reflux disease -Patient will be discharged today with close follow-up with PCP as an outpatient in about 3-7 days
--- NOTE | 2019-04-05 17:25 | P.DS ---
Providers Date of admission: 04/04/19 19:36 Attending physician: Ashley Berry Primary care physician: Beti Teixeira [facility] Course: as mentioned in HPI Patient Condition at Discharge: Fair Plan - Discharge Summary Discharge Rx Participant: No New Discharge Prescriptions: New metFORMIN HCL [Glucophage] 500 mg PO BID #60 tab Insulin Glargine,Hum.rec.anlog [Lantus Solostar] 18 unit SQ DAILY #1 each Losartan [Cozaar] 25 mg PO DAILY #30 tab Continue Omeprazole [PriLOSEC] 20 mg PO DAILY amLODIPine [Norvasc] 5 mg PO DAILY Rivaroxaban [Xarelto] 20 mg PO DAILY Discontinued Triamterene-Hctz 37.5-25Mg [Dyazide 37.5-25 Capsule] 1 cap PO DAILY Discharge Medication List Omeprazole [PriLOSEC] 20 mg PO DAILY 08/20/18 [History] Rivaroxaban [Xarelto] 20 mg PO DAILY 04/04/19 [History] amLODIPine [Norvasc] 5 mg PO DAILY 04/04/19 [History] Insulin Glargine,Hum.rec.anlog [Lantus Solostar] 18 unit SQ DAILY #1 each 04/05/19 [Rx] Losartan [Cozaar] 25 mg PO DAILY #30 tab 04/05/19 [Rx] metFORMIN HCL [Glucophage] 500 mg PO BID #60 tab 04/05/19 [Rx] Follow up Appointment(s)/Referral(s): Beti Teixeira MD [Primary Care Provider] - 04/14/19 8:45 am Patient Instructions/Handouts: Losartan (By mouth), Metformin (By mouth), Insulin Glargine (By injection), Type 2 Diabetes in Adults: New Diagnosis (DC) Activity/Diet/Wound Care/Special Instructions: Monitor blood sugars morning and evening. Keep a log book of blood sugars and take to follow-up appt. with Dr. Teixeira. Discharge Disposition: HOME SELF-CARE
== END 2019-04-05 18:00 | disposition home or self-care (01) ==
LOC: EC 15:08 → 3NMEDONC 19:36
PROVIDERS: ADMIT Hospitalist; ATTEND Hospitalist
DX: E11.65 Type 2 diabetes mellitus with hyperglycemia (principal); E86.1 Hypovolemia; R82.71 Bacteriuria; I26.99 Other pulmonary embolism without acute cor pulmonale; I82.622 Acute embolism and thrombosis of deep veins of left upper extremity; I10 Essential (primary) hypertension; R63.0 Anorexia; K21.9 Gastro-esophageal reflux disease without esophagitis; E66.9 Obesity, unspecified; Z68.41 Body mass index [BMI] 40.0-44.9, adult; Z79.01 Long term (current) use of anticoagulants; Z79.899 Other long term (current) drug therapy; Z91.048 Other nonmedicinal substance allergy status; Z85.828 Personal history of other malignant neoplasm of skin; Z90.49 Acquired absence of other specified parts of digestive tract; Z98.1 Arthrodesis status; Z98.51 Tubal ligation status; Z87.898 Personal history of other specified conditions; Z87.891 Personal history of nicotine dependence; Z82.3 Family history of stroke
CPT/HCPCS: 96361 ×3; 96365; 99285; 36415; 93005; 83880; 80053; 84484; 85025; 85610; 85730; 81001; 87040; 87086; 87077; 87186; 83036; 71046; G0378 ×2; J0696

== ENCOUNTER → 2019-04-08 | Outpatient (CLI) | payer OTHER ==
--- NOTE | 2019-04-08 09:43 | CT ---
EXAMINATION TYPE: CT chest w con DATE OF EXAM: 04/08/2019 COMPARISON: Chest x-ray dated 04/04/2019 HISTORY: Sarcoidosis CT DLP: 542.6 mGycm Automated exposure control for dose reduction was used. CONTRAST: CT scan of the chest is performed with IV Contrast, patient injected with 100 mL of Isovue 300. FINDINGS: LUNGS: A few tiny scattered micronodules are seen in the anterior right upper lobe and posterior left lower lobe with a few subpleural areas of nodularity along the posterior bilateral lower lobes. The largest 3 mm nodule is seen on axial image 27. Linear area of scarring/atelectasis is seen at the lef t lung base. There is no pleural effusion or pneumothorax seen. The tracheobronchial tree is patent. MEDIASTINUM: Innumerable enlarged mediastinal lymph nodes are seen with a conglomerate of lymph nodes seen along the right paratracheal stripe measuring 5.0 x 3.6 cm in AP by transverse dimension. Addit ional AP window, anterior tracheal and subcarinal lymph nodes are also seen. No evidence of axillary lymphadenopathy. No pericardial effusion is seen. OTHER: Diffuse low-attenuation of the liver on the basis of hepatic steatosis. Gallbladder is surgic ally absent. Bridging osteophytes are seen in the lower thoracic spine. IMPRESSION: Diffuse mediastinal lymphadenopathy likely on the basis of patient's provided history of sarcoidosis. A few micronodules scattered throughout the right lung are nonspecific, but are favored to be related to patient's provided history of sarcoidosis.
== END | disposition home or self-care (01) ==
LOC: RADCTMAIN 07:00
PROVIDERS: ATTEND Internal Medicine Critical Care Medicine
DX: R91.1 Solitary pulmonary nodule (principal); R59.1 Generalized enlarged lymph nodes
CPT/HCPCS: 71260; Q9967

== ENCOUNTER → 2019-04-16 | Outpatient (CLI) | payer OTHER | END | disposition home or self-care (01) | LOC: LABWHC1 08:38 | PROVIDERS: ATTEND Internal Medicine | DX: E11.65 Type 2 diabetes mellitus with hyperglycemia (principal); E83.52 Hypercalcemia | CPT/HCPCS: 36415; 82330; 82652; 83970; 84681 ==